=== PATIENT | female | born 1955 | race Two or more races ===

== ENCOUNTER 2020-03-08 19:18 | Inpatient (IN) | payer MEDICARE, OTHER ==
[~2020-03-08] VITALS: Ht 162.6 cm; Wt 49.9 kg
[2020-03-08 21:30] VITALS: BP 123/67
--- NOTE | 2020-03-08 21:40 | NUR ---
GPS RN NOTE PATIENT'S BLOOD SUGAR IS 62 MG/DL, 2 ORANGE JUICE GIVEN & TOLERATED WELL. WILL REPEAT BLOOD SUGAR CHECK. Addendum: 03/08/20 at 2313 by FAUZIA CORTES RN WAS MADE AWARE.
[2020-03-08 22:00] VITALS: BP 123/67
--- NOTE | 2020-03-08 22:15 | NUR ---
GPS RN NOTE ATTEMPTED TO CALL PATIENT'S SON EDU AT [phone], NO ANSWER & UNABLE TO LEAVE A MESSAGE DUE TO VOICEMAIL NOT BEEN SET UP TO RECEIVE MESSAGES, PER AUTOMATED SYSTEM.
[2020-03-08] MEDS ORDERED: MAGNESIUM HYDROXIDE 30 ML UDC PO PRN (22:30)
[2020-03-08] MEDS ORDERED: BLOOD SUGAR DIAGNOSTIC 1 EACH STRIP IN ONE (22:30)
[2020-03-08] MEDS ORDERED: MAG HYDROX/AL HYDROX/SIMETH 30 ML UDC PO PRN (22:30)
--- NOTE | 2020-03-08 22:30 | NUR ---
GPS RN NOTE: REFUSED TO GIVE MONEY TO PUT IN SAFE PATIENT HAD SINGLE 5 DOLLARS & SOME CHANGE UPON ADMISSION, PATIENT SNATCHED SINGLE 5 DOLLAR BILLS FROM NURSE WHILE COUNTING IN FRONT OF THE PATIENT & REFUSED TO GIVE IT BACK TO PUT IT IN THE SAFE. CHANGE WAS SENT TO OFFICE SAFE BUT PATIENT HAS SINGLE 5 DOLLAR BILLS WITH HER.
[2020-03-08] MEDS ORDERED: BENA5TAB5 PO (22:43)
[2020-03-08] MEDS ORDERED: BLOO-538 HHN (22:44)
--- NOTE | 2020-03-08 22:45 | NUR ---
GPS RN NOTE: REFUSED MRSA SWAB PATIENT REFUSED MRSA SWAB AT THIS TIME, GOT VERY AGITATED & AGGRESSIVE TOWARDS THE NURSE. WILL TRY TO COLLECT AGAIN LATER WHEN PATIENT IS CALM.
[2020-03-08] MEDS ORDERED: ANAS1TAB50 PO (22:46)
[2020-03-08] MEDS ORDERED: SIMV10TA98 PO (22:46)
[2020-03-08] MEDS ORDERED: BRIM5DRO5 RIGHTEYE (22:47)
[2020-03-08] MEDS ORDERED: DORZ10DR10 RIGHTEYE (22:48)
[2020-03-08] MEDS ORDERED: GLYB2.5T4 PO (22:49)
--- NOTE | 2020-03-08 22:50 | NUR ---
GPS RN-NOTE: ADMISSION ADMITTED A 64 YR OLD FEMALE, FROM [facility] TO GPS UNIT. PER 5150 HOLD, PATIENT CONTINUES TO LEAVE RESIDENCE & DOES NOT KNOW WHERE SHE IS. SHE SHEDS HER CLOTHES & WILL BE FOUND NAKED RUNNING THROUGH TRAFFIC. SHE TOLD HER FAMILY SHE WANTS TO "CHOP THEM UP." SHE WILL WALK INTO UNLOCKED RESIDENCES. UPON FACE TO FACE ASSESSMENT, AT GPS UNIT, PATIENT IS A & O X 1, VERY CONFUSED, FORGETFUL, AGGRESSIVE, YELLING, AGITATED. ANXIOUS/RESTLESS, LOUD, HYPERVERBAL, POOR HYGIENE, UNKEMPT, BLUNTED AFFECT, DISHEVELED, DISORGANIZED, PARANOID. NON REDIRECTABLE AT TIMES. UNCOOPERATIVE, UNABLE TO ANSWER MOST OF THE QUESTIONS DUE TO CONFUSION DURING INTERVIEW. CONTINENT. AMBULATORY WITH STAND BY ASSIST ONLY, UNSTEADY GAIT, HIGH FALL RISK. PT. REFUSED COMPLETE SKIN ASSESSMENT, VISIBLE SCRATCH TO LEFT LATERAL CHEST & LEFT BREAST MASTECTOMY SITE WERE NOT PICTURED DUE TO PT'S UNCOOPERATIVE BEHAVIOR. MED RECON DONE BY DR. LOBO. MRSA & COVID 19 NEGATIVE AT [facility]. PT'S RIGHTS HANDBOOK AND A GUIDE TO PRESCRIPTION MEDICATIONS GIVEN. IN NO APPARENT DISTRESS. BELONGINGS WERE INVENTORIED AND CHECKED FOR CONTRABAND. PT. IS UNDER CARE OF PSYCHIATRIC DR. HERNANDEZ AND THE MEDICAL CARE OF DR. LOBO. BED LOCKED AND PLACED IN LOWEST POSITION TO MAINTAIN SAFETY. BED ALARM ON. FALL PRECAUTIONS IMPLEMENTED. WILL CONTINUE TO MONITOR Q15 MINS. FOR SAFETY AND BEHAVIOR.
[2020-03-08] MEDS ORDERED: RISP1TAB27 PO (22:51)
[2020-03-08] MEDS ORDERED: MEMA5TAB42 PO (22:51)
--- NOTE | 2020-03-08 23:13 | NUR ---
GPS RN NOTE: RECHECKED BLOOD SUGAR RECHECKED BLOOD SUGAR & IT IS 106 MG/DL. MADE AWARE.
--- NOTE | 2020-03-09 00:20 | NUR ---
GPS RN NOTE PATIENT IS SLEEPING COMFORTABLY IN BED. BED ALARM ON. BED IN LOW LOCKED POSITION.
[2020-03-09] MEDS ORDERED: DEXTROSE 50%-WATER 50 ML DISP.SYRIN IV PRN (01:00)
--- NOTE | 2020-03-09 05:54 | NUR ---
GPS RN NOTE: REFUSED MRSA SWAB PATIENT REFUSED MRSA SWAB AGAIN AT THIS TIME, GOT AGITATED & AGGRESSIVE. WILL ENDORSE TO AM RN.
[2020-03-09 07:02] LABS: BASOPHILS % (AUTO) 0.4 % (0.0-2.0); EOSINOPHILS % (AUTO) 1.6 % (0.0-6.0); HEMATOCRIT 40 % (33-45); LYMPHOCYTES # (AUTO) 1.3 /CMM (0.8-4.8); LYMPHOCYTES % (AUTO) 21.9 % (20.0-44.0); MEAN CORPUSCULAR HGB CONC 33 g/dl (31.0-36.0); MEAN CORPUSCULAR VOLUME 94 fL (82-100); MONOCYTES # (AUTO) 0.6 /CMM (0.1-1.30); MONOCYTES % (AUTO) 10.2 % (2.0-12.0); NEUTROPHILS # (AUTO) 3.8 /CMM (1.8-8.9); NEUTROPHILS % (AUTO) 65.9 % (43.0-81.0); PLATELET COUNT (AUTO) 215 /CMM (150-450); RED BLOOD CELL COUNT(AUTO) 4.24 MIL/uL (4.0-5.2); WHITE BLOOD COUNT (AUTO) 5.7 K/uL (4.3-11.0)
[2020-03-09 07:32] LABS: CREATININE 0.5 mg/dL (0.6-1.3); POTASSIUM 3.7 mmol/L (3.5-5.1)
--- NOTE | 2020-03-09 07:36 | NUR ---
GPS RN NOTE CALLED PT'S SON EDU & NOTIFIED ABOUT HIS MOM'S ADMISSION AT GPS UNIT IN ROOM 212-2.
[2020-03-09 08:00] VITALS: BP 107/71
[2020-03-09] MEDS: BENAZEPRIL HCL 5 MG TABLET PO SCH (09:00)
[2020-03-09] MEDS: glyBURIDE 5 MG TABLET PO SCH (09:37)
[2020-03-09] MEDS: BLOOD SUGAR DIAGNOSTIC 1 EACH STRIP IN SCH ×4 (09:39→21:06)
[2020-03-09] MEDS: ANASTROZOLE 1 MG TABLET PO SCH (09:41)
[2020-03-09] MEDS: BRIMONIDINE TARTRATE OPHT SOLN 5 ML BOTTLE RIGHTEYE SCH ×2 (09:42→17:35)
[2020-03-09] MEDS: DORZOLAMIDE OPTH 2% 10 ML BOTTLE RIGHTEYE SCH ×2 (09:42→17:35)
[2020-03-09] MEDS: clonazePAM 0.5 MG TABLET PO PRN (12:30)
[2020-03-09] MEDS: risperiDONE 1 MG TABLET PO SCH ×2 (15:15→18:14)
[2020-03-09 16:00] VITALS: BP 138/79
[2020-03-09] MEDS ORDERED: LORAZEPAM INJ 2 MG/ML VIAL IM STA (16:18)
[2020-03-09] MEDS ORDERED: HALOPERIDOL LACTATE INJ 5 MG/ML VIAL IM STA (16:18)
[2020-03-09] MEDS ORDERED: diphenhydrAMINE HCL 50 MG/ML VIAL IM STA (16:18)
[2020-03-09] MEDS: SIMVASTATIN 10 MG TABLET PO SCH (18:14)
[2020-03-09 19:53] VITALS: BP 131/86
[2020-03-09] MEDS: TEMAZEPAM 7.5 MG CAPSULE PO PRN (22:43)
--- NOTE | 2020-03-09 22:44 | NUR ---
GPS RN NOTES: INSOMNIA UPON DOING ROUNDS PT AWAKE AND BANGING ON MADIHA CHAIR. ENCOURAGE PT TO EXPRESS THOUGHTS AND FEELINGS, PT SPEAKING IN TAGALOG AND TURKISH.PT STATED SHE DOESN'T LIKE WHERE SHE IS AT AND WILL NOT SLEEP. OFFERED RESTORIL PRN ORDERED. PT AGREED AND TOLERATED MEDICATION WELL. CONTINUE TO MONITOR.
[2020-03-10] MEDS: BLOOD SUGAR DIAGNOSTIC 1 EACH STRIP IN SCH ×5 (07:30→21:03)
[2020-03-10 08:00] VITALS: BP 120/72
[2020-03-10] MEDS: risperiDONE 1 MG TABLET PO SCH ×2 (08:07→17:47)
[2020-03-10] MEDS: BENAZEPRIL HCL 5 MG TABLET PO SCH (08:07)
[2020-03-10] MEDS: glyBURIDE 5 MG TABLET PO SCH (08:08)
[2020-03-10] MEDS: DORZOLAMIDE OPTH 2% 10 ML BOTTLE RIGHTEYE SCH ×2 (08:10→17:48)
[2020-03-10] MEDS: BRIMONIDINE TARTRATE OPHT SOLN 5 ML BOTTLE RIGHTEYE SCH ×2 (08:10→17:48)
[2020-03-10] MEDS: ANASTROZOLE 1 MG TABLET PO SCH (08:10)
--- NOTE | 2020-03-10 11:08 | NUR ---
RN NOTE LATE ENTRY FOR 03/09/20 16:19 :PATIENT AGITATED ASSAULTIVE YELLING AND PUSHING DOORS ,NOT FOLLOWING DIRECTIONS ,REDIRECT TO LOWER STIMULI ,OFFER 1:1 INTERACTIONS BUT STILL NOT SUCCESSFUL CALLED WITH NEW ORDER ATIVAN 1MG IM BENADRYL 2.5 MG IM HALDOL 2.5 MG IM GIVEN AT 16:19 PATIENT REFUSED VS X3 AT 17:19 BP P 78 R 18 T 98.7 ,BP 118/70 ,NO S/S OF DISTRESS NOTED PATIENT ,WILL CONTINUE TO MONITOR .
--- NOTE | 2020-03-10 13:04 | NUR ---
FAMILY CONTACT: SW received a call from pts son Jack ([phone]) who provided SW with collateral information, treatment and discharge planning. Per son, he states that pt currently lives at home with him and that he is her [facility] caregiver, however, he is unable to continue caring for her as he works claim adjuster and is in the process of moving. Son states that pt was diagnosed with Dementia a few years ago and states that ever since her a year ago pt declined cognitively and recently became psychotic and unmanageable. Son states that pt does not have mental health history but states that pt has always been aggressive. Son wishes for pt to be discharged to a SNF and requested she be placed in a locked SNF.
[2020-03-10] MEDS: clonazePAM 0.5 MG TABLET PO PRN ×2 (13:06→23:48)
--- NOTE | 2020-03-10 13:07 | NUR ---
RN NOTE: PATIENT IRRITABLE AND ANXIOUS MEDICATED WITH KLONOPIN 0.5MG PO X1 WILL CONTINUE TO MONITOR .
--- NOTE | 2020-03-10 14:01 | NUR ---
INITIAL DISCHARGE PLAN: Per pts son Jack ([phone]) he wishes for pt to be discharged to a SNF. SW will help form a safe and proper discharge in collaboration with MD.
[2020-03-10 16:00] VITALS: BP 111/72
[2020-03-10] MEDS: SIMVASTATIN 10 MG TABLET PO SCH (18:13)
[2020-03-10 19:47] VITALS: BP 110/64
[2020-03-10] MEDS: TEMAZEPAM 7.5 MG CAPSULE PO PRN (21:22)
--- NOTE | 2020-03-10 21:23 | NUR ---
GPS RN NOTES: INSOMNIA UPON DOING ROUNDS PT AWAKE AND BANGING ON MADIHA CHAIR. ENCOURAGE PT TO EXPRESS THOUGHTS AND FEELINGS, PT SPEAKING IN TAGALOG AND GEORGIAN.PT STATED SHE WANTS TO SLEEP AND TKAE MEDICATION OFFERED RESTORIL PRN ORDERED. PT AGREED AND TOLERATED MEDICATION WELL. CONTINUE TO MONITOR.
[2020-03-10 23:43] VITALS: BP 114/69
--- NOTE | 2020-03-10 23:53 | NUR ---
GPS RN NOTES: ANXIOUS UPON DOING ROUNDS, PT YELLING AND BANGING ON MADIHA CHAIR. PT STATED, "BROTHER! ARE WE DONE?" PT IS ANXIOUS AND EASILY AGITATED. VITALS CHECKED WNL. OFFERED KLONOPIN PRN ORDERED. PT AGREED AND TOLERATED MEDICATION WELL. CONTINUE TO MONITOR.
[2020-03-11 08:00] VITALS: BP 123/74
[2020-03-11] MEDS: risperiDONE 1 MG TABLET PO SCH ×2 (08:08→17:37)
[2020-03-11] MEDS: BENAZEPRIL HCL 5 MG TABLET PO SCH (08:09)
[2020-03-11] MEDS: glyBURIDE 5 MG TABLET PO SCH (08:09)
[2020-03-11] MEDS: BRIMONIDINE TARTRATE OPHT SOLN 5 ML BOTTLE RIGHTEYE SCH ×2 (08:10→17:37)
[2020-03-11] MEDS: BLOOD SUGAR DIAGNOSTIC 1 EACH STRIP IN SCH ×4 (08:10→21:28)
[2020-03-11] MEDS: DORZOLAMIDE OPTH 2% 10 ML BOTTLE RIGHTEYE SCH ×2 (08:10→17:37)
[2020-03-11] MEDS: ANASTROZOLE 1 MG TABLET PO SCH (08:10)
--- NOTE | 2020-03-11 10:11 | NUR ---
SNF REFERRAL: SILKE faxed SNF referral to [facility] [id number] [facility] [id number] for review.
[2020-03-11] MEDS: clonazePAM 0.5 MG TABLET PO PRN (11:02)
--- NOTE | 2020-03-11 11:02 | NUR ---
RN NOTE: PATIENT IRRITABLE AND ANXIOUS MEDICATED WITH KLONOPIN 0.5MG PO X1 WILL CONTINUE TO MONITOR .
--- NOTE | 2020-03-11 14:25 | NUR ---
GROUP THERAPY: Pt was present but unable to participate due to cognitive impairment. Pt is only alert to self and unable to engage in conversation. Pt was asleep in a shawn-chair and not easily roused by verbal cues.
--- NOTE | 2020-03-11 14:42 | NUR ---
SNF REFERRAL: SW received a call from [facility] medical staff credentialing coordinator at [facility] [id number] [facility] [id number] stating pt has been accepted to the facility.
[2020-03-11 16:00] VITALS: BP 123/69
[2020-03-11] MEDS: SIMVASTATIN 10 MG TABLET PO SCH (17:37)
[2020-03-11 20:00] VITALS: BP 104/66
[2020-03-12 08:00] VITALS: BP 114/70
[2020-03-12] MEDS: BLOOD SUGAR DIAGNOSTIC 1 EACH STRIP IN SCH ×4 (08:43→22:05)
[2020-03-12] MEDS: glyBURIDE 5 MG TABLET PO SCH (09:00)
[2020-03-12] MEDS: risperiDONE 1 MG TABLET PO SCH ×2 (09:00→16:19)
[2020-03-12] MEDS: BENAZEPRIL HCL 5 MG TABLET PO SCH (09:01)
[2020-03-12] MEDS: DORZOLAMIDE OPTH 2% 10 ML BOTTLE RIGHTEYE SCH ×2 (09:02→16:56)
[2020-03-12] MEDS: BRIMONIDINE TARTRATE OPHT SOLN 5 ML BOTTLE RIGHTEYE SCH ×2 (09:02→16:57)
[2020-03-12] MEDS: ANASTROZOLE 1 MG TABLET PO SCH (09:02)
[2020-03-12 16:00] VITALS: BP 103/64
--- NOTE | 2020-03-12 17:10 | NUR ---
GPS/RN-NOTES PATIENT BS WAS 48 MG/DL BEFORE DINNER, GAVE ORANGE JUICE AND WILL RECHECK BS AGAIN. PATIENT DENIES ANY S/SX OF HYPOGLYCEMIA. WILL CONT. MONITORING.
[2020-03-12] MEDS: SIMVASTATIN 10 MG TABLET PO SCH (17:15)
--- NOTE | 2020-03-12 17:40 | NUR ---
GPS/RN-NOTES BS WAS 93MG/DL. PATIENT WALKING IN THE HALLWAY.NO ACUTE DISTRESS NOTED.
[2020-03-12 20:05] VITALS: BP 114/68
--- NOTE | 2020-03-13 06:30 | NUR ---
GPS RN NOTES: PT. RESTING IN HER ROOM, CALM NOTED AT THIS TIME . NO S/S OF DISTRESS NOTED ,NO CHANGE OF CONDITION NOTED , ALL CARE NEEDS MET ANTICIPATED. MED COMPLIANT ,NO BEHAVIOR PROBLEMS NOTED IN SHIFT,WILL CONTINUE TO MONITOR FOR SAFETY BEHAVIOR, AND ENDORSE TO AM SHIFT FOR CONTINUITY OF CARE.
[2020-03-13] MEDS: BLOOD SUGAR DIAGNOSTIC 1 EACH STRIP IN SCH ×4 (07:46→21:25)
[2020-03-13 08:00] VITALS: BP 99/62
[2020-03-13] MEDS: risperiDONE 1 MG TABLET PO SCH ×2 (08:34→16:35)
[2020-03-13] MEDS: BENAZEPRIL HCL 5 MG TABLET PO SCH (08:34)
[2020-03-13] MEDS: ANASTROZOLE 1 MG TABLET PO SCH (08:34)
[2020-03-13] MEDS: DORZOLAMIDE OPTH 2% 10 ML BOTTLE RIGHTEYE SCH ×2 (08:35→16:36)
[2020-03-13] MEDS: BRIMONIDINE TARTRATE OPHT SOLN 5 ML BOTTLE RIGHTEYE SCH ×2 (08:35→16:36)
[2020-03-13] MEDS: glyBURIDE 5 MG TABLET PO SCH (08:35)
[2020-03-13] MEDS: clonazePAM 0.5 MG TABLET PO PRN ×2 (11:26→21:37)
--- NOTE | 2020-03-13 12:04 | NUR ---
GPS/RN PT REFUSED ACCUCHECK FOR 1200. MEDICATED WITH CLONOPIN 0.5MG PO EARLIER FOR AGITATION. PT EATING WELL NO S/S OF HYPO/HYPERGLYCEMIA NOTED.
[2020-03-13 16:00] VITALS: BP 107/76
[2020-03-13] MEDS: DIVALPROEX SODIUM 125 MG CAP.SPRINK PO SCH ×2 (16:33→18:22)
[2020-03-13] MEDS: SIMVASTATIN 10 MG TABLET PO SCH (18:22)
[2020-03-13 19:47] VITALS: BP 114/64
--- NOTE | 2020-03-13 21:42 | NUR ---
GPS RN NOTE: ANXIETY PT. APPEARS TO BE ANXIOUS. YELLING AND SCREAMING IN DAY ROOM. ADMINISTERED KLONOPIN 0.5 MG PO PRN ORDERED. WILL CONTINUE TO MONITOR FOR SAFETY AND BEHAVIOR.
[2020-03-14] MEDS: TEMAZEPAM 7.5 MG CAPSULE PO PRN (01:02)
--- NOTE | 2020-03-14 01:07 | NUR ---
GPS RN NOTE:INSOMNIA PT. UNABLE TO SLEEP. ADMINISTERED RESTORIL 7.5 MG PO PRN ORDERED. WILL CONTINUE TO MONITOR
[2020-03-14] MEDS: BLOOD SUGAR DIAGNOSTIC 1 EACH STRIP IN SCH ×3 (07:41→22:21)
[2020-03-14 08:00] VITALS: BP 113/70
[2020-03-14] MEDS: risperiDONE 1 MG TABLET PO SCH ×2 (08:24→16:40)
[2020-03-14] MEDS: ANASTROZOLE 1 MG TABLET PO SCH (08:24)
[2020-03-14] MEDS: DIVALPROEX SODIUM 125 MG CAP.SPRINK PO SCH ×3 (08:24→16:41)
[2020-03-14] MEDS: DORZOLAMIDE OPTH 2% 10 ML BOTTLE RIGHTEYE SCH ×2 (08:25→16:38)
[2020-03-14] MEDS: BRIMONIDINE TARTRATE OPHT SOLN 5 ML BOTTLE RIGHTEYE SCH ×2 (08:25→16:38)
[2020-03-14] MEDS: BENAZEPRIL HCL 5 MG TABLET PO SCH (08:25)
[2020-03-14] MEDS: clonazePAM 0.5 MG TABLET PO PRN (09:41)
[2020-03-14 16:00] VITALS: BP 101/59
[2020-03-14] MEDS: SIMVASTATIN 10 MG TABLET PO SCH (16:41)
[2020-03-15 08:00] VITALS: BP 111/66
[2020-03-15] MEDS: BLOOD SUGAR DIAGNOSTIC 1 EACH STRIP IN SCH ×4 (08:28→21:54)
[2020-03-15] MEDS: BRIMONIDINE TARTRATE OPHT SOLN 5 ML BOTTLE RIGHTEYE SCH ×2 (08:56→16:17)
[2020-03-15] MEDS: DORZOLAMIDE OPTH 2% 10 ML BOTTLE RIGHTEYE SCH ×2 (08:56→16:17)
[2020-03-15] MEDS: ANASTROZOLE 1 MG TABLET PO SCH (08:57)
[2020-03-15] MEDS: DIVALPROEX SODIUM 125 MG CAP.SPRINK PO SCH ×3 (08:58→16:16)
[2020-03-15] MEDS: risperiDONE 1 MG TABLET PO SCH ×2 (08:58→16:16)
[2020-03-15] MEDS: BENAZEPRIL HCL 5 MG TABLET PO SCH (08:59)
[2020-03-15] MEDS: clonazePAM 0.5 MG TABLET PO PRN ×3 (09:19→17:49)
--- NOTE | 2020-03-15 09:19 | NUR ---
rn notes administered Klonopin 0.5 mg po prn for anxiety, yelling, v/s taken bp- 111/66, p-94, continued monitoring.
--- NOTE | 2020-03-15 13:22 | NUR ---
josefa parker administered Klonopin 0.5 mg po prn for paranoia, yelling, screaming, v/s take bp 118/71, p-101, continued monitoring.
[2020-03-15 16:00] VITALS: BP 118/71
[2020-03-15] MEDS: SIMVASTATIN 10 MG TABLET PO SCH (17:16)
--- NOTE | 2020-03-15 17:49 | NUR ---
rn notes administered Klonopin 0.5 mg po prn for paranoia, yelling, banging table, v/s taken bp 119/71, p-100.
[2020-03-15 20:09] VITALS: BP 97/65
[2020-03-15] MEDS: TEMAZEPAM 7.5 MG CAPSULE PO PRN (21:41)
--- NOTE | 2020-03-15 21:55 | NUR ---
GPS RN NOTE: INSOMNIA PT HAVING DIFFICULTY SLEEPING, ASKED IF SHE WOULD LIKE TO TAKE RESTORIL PT AGREED, ADMIN RESTORIL PRN, WILL REASSESS AND CONTINUE TO MONITOR Q15MIN FOR SAFETY AND BEHAVIOR.
[2020-03-16] MEDS: clonazePAM 0.5 MG TABLET PO PRN (01:01)
--- NOTE | 2020-03-16 01:12 | NUR ---
GPS RN NOTE: ANXIETY PT WAS RESTLESS, ANXIOUS, LABILE, YELLING, OFFERED PRN ALONAONOVIJAYA PT AGREED, ADMIN MUSA PRN @ 0102, WILL REASSESS AND CONTINUE TO MONITOR Q15MIN FOR SAFETY AND BEHAVIOR,
[2020-03-16 08:00] VITALS: BP 139/95
--- NOTE | 2020-03-16 08:00 | NUR ---
GPS RN NOTES RECEIVED PT IN BED RESTING IN HER ROOM, CALM NOTED AT THIS TIME . NO S/S OF DISTRESS NOTED ,NO CHANGE OF CONDITION NOTED , NO C/O PAIN OR DISCOMOFORT. NO BEHAVIORAL PROBLEMS NOTED AT THIS TIME. PT IS AMBULATORY. ,WILL CONTINUE TO MONITOR FOR SAFETY BEHAVIOR, AND
[2020-03-16] MEDS: BLOOD SUGAR DIAGNOSTIC 1 EACH STRIP IN SCH ×4 (09:06→22:20)
[2020-03-16] MEDS: BENAZEPRIL HCL 5 MG TABLET PO SCH (09:07)
[2020-03-16] MEDS: DIVALPROEX SODIUM 125 MG CAP.SPRINK PO SCH ×3 (09:07→16:41)
[2020-03-16] MEDS: risperiDONE 1 MG TABLET PO SCH ×2 (09:07→17:01)
[2020-03-16] MEDS: BRIMONIDINE TARTRATE OPHT SOLN 5 ML BOTTLE RIGHTEYE SCH ×2 (09:08→17:01)
[2020-03-16] MEDS: DORZOLAMIDE OPTH 2% 10 ML BOTTLE RIGHTEYE SCH ×2 (09:09→17:01)
[2020-03-16] MEDS: ANASTROZOLE 1 MG TABLET PO SCH (09:09)
[2020-03-16 16:00] VITALS: BP 111/66
[2020-03-16] MEDS: SIMVASTATIN 10 MG TABLET PO SCH (17:02)
[2020-03-16 19:55] VITALS: BP 98/61
[2020-03-17] MEDS: BLOOD SUGAR DIAGNOSTIC 1 EACH STRIP IN SCH ×4 (07:05→21:26)
[2020-03-17 08:00] VITALS: BP 109/59
[2020-03-17] MEDS: BENAZEPRIL HCL 5 MG TABLET PO SCH (09:00)
[2020-03-17] MEDS: risperiDONE 1 MG TABLET PO SCH ×2 (09:00→15:40)
[2020-03-17] MEDS: DIVALPROEX SODIUM 125 MG CAP.SPRINK PO SCH ×2 (10:06→16:14)
[2020-03-17] MEDS: DORZOLAMIDE OPTH 2% 10 ML BOTTLE RIGHTEYE SCH ×2 (10:07→16:14)
[2020-03-17] MEDS: BRIMONIDINE TARTRATE OPHT SOLN 5 ML BOTTLE RIGHTEYE SCH ×2 (10:07→16:14)
[2020-03-17] MEDS: ANASTROZOLE 1 MG TABLET PO SCH (12:05)
[2020-03-17] MEDS: clonazePAM 0.5 MG TABLET PO PRN ×2 (12:27→15:40)
--- NOTE | 2020-03-17 12:34 | NUR ---
terri held in am due to low bp.ativan given now. Addendum: 03/17/20 at 1236 by TASHI YAO RN correction klonopin given not ativan.
[2020-03-17] MEDS: ACETAMINOPHEN 325 MG TABLET PO PRN (14:28)
--- NOTE | 2020-03-17 14:30 | NUR ---
medicated for appearance of discomfort with tylenol.
--- NOTE | 2020-03-17 15:48 | NUR ---
GIVEN ATIVAN AND RISPERDAL FOR SEVERE AGITATION.
[2020-03-17 16:00] VITALS: BP 134/85
[2020-03-17] MEDS: SIMVASTATIN 10 MG TABLET PO SCH (16:15)
--- NOTE | 2020-03-17 18:00 | NUR ---
PT. UP MOST OF DAY,THEN PUT BACK TO BED POUNDING ON TABLE FREQ.
[2020-03-17 20:05] VITALS: BP 99/58
[2020-03-18] MEDS: clonazePAM 0.5 MG TABLET PO PRN ×4 (05:51→16:46)
--- NOTE | 2020-03-18 05:56 | NUR ---
GPS-RN NOTE: ANXIETY PATIENT IS ANXIOUS AND RESTLESS. ADMINISTERED KLONOPIN 0.5MG PO ORDERED. WILL CONTINUE TO MONITOR FOR PATIENT'S SAFETY.
[2020-03-18 08:00] VITALS: BP 134/79
[2020-03-18] MEDS: BLOOD SUGAR DIAGNOSTIC 1 EACH STRIP IN SCH ×4 (08:49→22:11)
[2020-03-18] MEDS: BRIMONIDINE TARTRATE OPHT SOLN 5 ML BOTTLE RIGHTEYE SCH ×2 (08:55→17:53)
[2020-03-18] MEDS: DORZOLAMIDE OPTH 2% 10 ML BOTTLE RIGHTEYE SCH ×2 (08:55→17:53)
[2020-03-18] MEDS: risperiDONE 1 MG TABLET PO SCH ×2 (08:56→17:54)
[2020-03-18] MEDS: BENAZEPRIL HCL 5 MG TABLET PO SCH (08:56)
[2020-03-18] MEDS: DIVALPROEX SODIUM 125 MG CAP.SPRINK PO SCH ×3 (08:56→17:53)
[2020-03-18] MEDS: ANASTROZOLE 1 MG TABLET PO SCH (08:57)
--- NOTE | 2020-03-18 09:32 | NUR ---
GIVEN CLONOPIN FOR AGITATION.
--- NOTE | 2020-03-18 12:40 | NUR ---
in dining rm.poundinf
--- NOTE | 2020-03-18 12:40 | NUR ---
in dining rm. pounding on table,given clonopin.
[2020-03-18] MEDS: ACETAMINOPHEN 325 MG TABLET PO PRN (12:50)
--- NOTE | 2020-03-18 12:50 | NUR ---
states head pounding-given tylenol.
--- NOTE | 2020-03-18 13:46 | NUR ---
DR. HERNANDEZ CALLING IN CHECKING ON PT.RN INFORMED HIM PT. POUNDING ON TABLE CONTINUALLY FOR HRS AND POSSIBLY NEEDS MORE MEDICATION,MD STATED HE WOULD ORDER DEPAKOTE LEVEL TOMORROW.
[2020-03-18 16:00] VITALS: BP 125/69
--- NOTE | 2020-03-18 16:52 | NUR ---
GIVEN CLONOPIN,PT. IN DINING RM. POUNDING ON TABLE.
[2020-03-18] MEDS: SIMVASTATIN 10 MG TABLET PO SCH (17:53)
[2020-03-18 19:43] VITALS: BP 113/61
--- NOTE | 2020-03-18 22:34 | NUR ---
GPS RN NOTE SPOKE TO DR. HUTCHINS REGARDING PTS BLOOD SUGAR BEING 224 AND ELEVATED THROUGHOUT THE DAY. DR. HUTCHINS STATED "PASS IT ON TO MORNING SHIFT, THAT IS NOTHING TO BE CONCERNED ABOUT RIGHT NOW THE DAY SHIFT NEEDS TO ADDRESS THIS ISSUE, NO NEW ORDERS AT THIS TIME". WILL CONTINUE TO MONITOR Q15MIN FOR SAFETY AND BEHAVIOR AND PASS IT ON IN THE AM.
[2020-03-19 08:00] VITALS: BP 100/60
[2020-03-19] MEDS: BENAZEPRIL HCL 5 MG TABLET PO SCH (09:00)
[2020-03-19] MEDS: BLOOD SUGAR DIAGNOSTIC 1 EACH STRIP IN SCH ×4 (09:17→21:20)
[2020-03-19] MEDS: DIVALPROEX SODIUM 125 MG CAP.SPRINK PO SCH ×3 (09:18→16:26)
[2020-03-19] MEDS: ANASTROZOLE 1 MG TABLET PO SCH (09:18)
[2020-03-19] MEDS: BRIMONIDINE TARTRATE OPHT SOLN 5 ML BOTTLE RIGHTEYE SCH ×2 (09:19→16:31)
[2020-03-19] MEDS: DORZOLAMIDE OPTH 2% 10 ML BOTTLE RIGHTEYE SCH ×2 (09:19→16:31)
[2020-03-19] MEDS: risperiDONE 1 MG TABLET PO SCH ×2 (09:21→16:31)
--- NOTE | 2020-03-19 11:15 | NUR ---
FAMILY CONTACT: SW spoke with patients son, Jack Harding ([phone]) and made aware of patient's discharge plan fo Monday to [facility]. Jack is agreeable.
--- NOTE | 2020-03-19 13:36 | NUR ---
SILKE INDIVIDUAL INTERVENTION: SW attempted to meet with patient to provide individual counseling regarding her mood. Patient appears disorganized and confused. Patient is seen with her eyes closed and not very verbally responsive. Patient appears distressed and withdrawn at this time. SW will continue to meet with patient for further individual counseling.
[2020-03-19 16:00] VITALS: BP 105/66
[2020-03-19] MEDS: SIMVASTATIN 10 MG TABLET PO SCH (17:33)
[2020-03-19 19:39] VITALS: BP 95/57
[2020-03-19] MEDS: ACETAMINOPHEN 325 MG TABLET PO PRN (21:15)
--- NOTE | 2020-03-19 21:15 | NUR ---
GPS-RN NOTE: HEADACHE PATIENT C/O HEADACHE. ON A PAIN SCALE 3/10. ADMINISTERED TYLENOL 650MG PO ORDERED. WILL CONTINUE TO REASSESS.
[2020-03-20] MEDS: BLOOD SUGAR DIAGNOSTIC 1 EACH STRIP IN SCH ×4 (07:30→21:20)
[2020-03-20 08:00] VITALS: BP 100/66
[2020-03-20] MEDS: BENAZEPRIL HCL 5 MG TABLET PO SCH (08:04)
[2020-03-20] MEDS: ANASTROZOLE 1 MG TABLET PO SCH (08:08)
[2020-03-20] MEDS: DORZOLAMIDE OPTH 2% 10 ML BOTTLE RIGHTEYE SCH ×2 (08:08→17:36)
[2020-03-20] MEDS: BRIMONIDINE TARTRATE OPHT SOLN 5 ML BOTTLE RIGHTEYE SCH ×2 (08:08→17:36)
[2020-03-20] MEDS: DIVALPROEX SODIUM 125 MG CAP.SPRINK PO SCH ×3 (08:09→17:37)
[2020-03-20] MEDS: risperiDONE 1 MG TABLET PO SCH ×2 (08:09→21:21)
[2020-03-20] MEDS: clonazePAM 0.5 MG TABLET PO PRN (09:34)
[2020-03-20 16:00] VITALS: BP 117/66
[2020-03-20] MEDS: SIMVASTATIN 10 MG TABLET PO SCH (17:38)
[2020-03-20 19:55] VITALS: BP 115/68
[2020-03-21] MEDS: BLOOD SUGAR DIAGNOSTIC 1 EACH STRIP IN SCH ×4 (07:31→21:28)
[2020-03-21] MEDS: BENAZEPRIL HCL 5 MG TABLET PO SCH (07:47)
[2020-03-21 08:00] VITALS: BP 100/59
[2020-03-21] MEDS: DIVALPROEX SODIUM 125 MG CAP.SPRINK PO SCH ×3 (08:08→17:48)
[2020-03-21] MEDS: risperiDONE 1 MG TABLET PO SCH ×2 (08:08→21:16)
[2020-03-21] MEDS: DORZOLAMIDE OPTH 2% 10 ML BOTTLE RIGHTEYE SCH ×2 (08:09→17:47)
[2020-03-21] MEDS: ANASTROZOLE 1 MG TABLET PO SCH (08:09)
[2020-03-21] MEDS: BRIMONIDINE TARTRATE OPHT SOLN 5 ML BOTTLE RIGHTEYE SCH ×2 (08:09→17:47)
[2020-03-21] MEDS: clonazePAM 0.5 MG TABLET PO PRN (12:44)
[2020-03-21 16:00] VITALS: BP 117/68
[2020-03-21] MEDS: SIMVASTATIN 10 MG TABLET PO SCH (18:02)
[2020-03-21 20:15] VITALS: BP 105/65
[2020-03-21] MEDS: TEMAZEPAM 7.5 MG CAPSULE PO PRN (23:35)
--- NOTE | 2020-03-21 23:41 | NUR ---
GPS RN NOTE: INSOMNIA PT. UNABLE TO SLEEP. ADMINISTERED RESTORIL 7.5 MG PO PRN ORDERED. WILL CONTINUE TO MONITOR.
[2020-03-22] MEDS: BLOOD SUGAR DIAGNOSTIC 1 EACH STRIP IN SCH ×4 (07:36→21:33)
[2020-03-22 08:00] VITALS: BP 100/68
[2020-03-22] MEDS: risperiDONE 1 MG TABLET PO SCH ×2 (08:20→21:23)
[2020-03-22] MEDS: DIVALPROEX SODIUM 125 MG CAP.SPRINK PO SCH ×3 (08:20→16:28)
[2020-03-22] MEDS: BENAZEPRIL HCL 5 MG TABLET PO SCH (08:20)
[2020-03-22] MEDS: DORZOLAMIDE OPTH 2% 10 ML BOTTLE RIGHTEYE SCH ×2 (08:23→16:36)
[2020-03-22] MEDS: BRIMONIDINE TARTRATE OPHT SOLN 5 ML BOTTLE RIGHTEYE SCH ×2 (08:23→16:36)
[2020-03-22] MEDS: ANASTROZOLE 1 MG TABLET PO SCH (08:23)
[2020-03-22] MEDS: clonazePAM 0.5 MG TABLET PO PRN (13:50)
--- NOTE | 2020-03-22 13:50 | NUR ---
GPS-RN NOTE: ANXIETY PATIENT IS ANXIOUS AND RESTLESS. ADMINISTERED KLONOPIN 0.5MG PO ORDERED. WILL CONTINUE TO MONITOR FOR PATIENT'S SAFETY.
[2020-03-22 16:00] VITALS: BP 144/77
[2020-03-22] MEDS: SIMVASTATIN 10 MG TABLET PO SCH (18:18)
[2020-03-22 19:59] VITALS: BP 96/59
[2020-03-23] MEDS: BLOOD SUGAR DIAGNOSTIC 1 EACH STRIP IN SCH (07:36)
[2020-03-23 08:00] VITALS: BP 108/67
[2020-03-23] MEDS: DIVALPROEX SODIUM 125 MG CAP.SPRINK PO SCH (08:29)
[2020-03-23] MEDS: risperiDONE 1 MG TABLET PO SCH (08:30)
[2020-03-23] MEDS: BRIMONIDINE TARTRATE OPHT SOLN 5 ML BOTTLE RIGHTEYE SCH (08:32)
[2020-03-23] MEDS: DORZOLAMIDE OPTH 2% 10 ML BOTTLE RIGHTEYE SCH (08:32)
[2020-03-23 08:33] VITALS: BP 108/67
[2020-03-23] MEDS: ANASTROZOLE 1 MG TABLET PO SCH (08:33)
[2020-03-23] MEDS: BENAZEPRIL HCL 5 MG TABLET PO SCH (08:33)
--- NOTE | 2020-03-23 08:48 | NUR ---
SW DISCHARGE NOTE: Patient [facility] [address] [place] [address] ([phone]) via ambulance transportation at 11:30AM. Spoke with [facility] corporate administrative assistant at the facility who states they are ready to accept the patient today. Patient will follow-up at the facility with Dr. Rhodes Multi Needle Machine Operator and Dr. Gomes Psychiatrist. Patient is alert and oriented times 2-3, denies suicidal or homicidal ideation, and is aware and agreeable with discharge plans. Patient presents with appropriate mood and congruent affect. Patient is unable to plan for self-care at this time, however, is willing to accept care provided at the facility. Patients son, Jack Harding ([phone]) is aware and agreeable with discharge plans. The multidisciplinary exit care form was done, printed, signed, and given to the patient.
--- NOTE | 2020-03-23 09:00 | NUR ---
RN NOTE- PACING HALLS INTRUSIVE AT TIMES FLAT AFFECT, MED COMPLIANT DIRECTABLE TOO CONFUSED TO ESTABLISH SI HI , ANSWERS QUERY MONOSYLLABIC RESPONSES
--- NOTE | 2020-03-23 10:11 | NUR ---
RN-CO: DR PEGUERO, COVERING FOR DR HERNANDEZ , DISCONTINUE HOLD AND DISCHARGE PATIENT TO SNF. PAGED KOSTAS COOK GOVERNMENT RELATIONS MANAGER TO RECONCILE MEDICATIONS.
--- NOTE | 2020-03-23 11:55 | NUR ---
RN NOTE- DISCHARGE/ PT DC AT THIS TIME TO [facility] VIA GURNEY AND AMBULANCE , PT VS STABLE, ALERT ORIENTED TO SELF ONLY, CONFUSED COOPERATIVE CALM DIRECTABLE. PT DENIES SI ON QUERY BUT ORIENTATION MAKES THIS UNRELIABLE. PT HASN'T DISPLAYED ANY BEHAVIORAL ISSUES. MED COMPLIANT, PO INTAKE GOOD. VALUABLES RETURNED, REPORT CALLED TO FACILITY AND AFTERCARE GIVEN AND REVIEWED. ID [id number]. ESCORTED OFF UNIT BY THIS RN AND AMBULANCE STAFF. Addendum: 03/23/20 at 1744 by ANIL KATZ RN RN NOTE/ADDENDUM- THIS RN FORGOT TO INCLUDE FLU SHOT INFORMATION. PT TOO CONFUSED TO ANSWER QUERY CONCERNING FLU SHOT .
== END 2020-03-23 11:55 | DRG 885 ==
LOC: GPS 21:14
PROVIDERS: ADMIT Psychiatry & Neurology Psychiatry; ATTEND Internal Medicine
DX: F29 Unspecified psychosis not due to a substance or known physiological condition (principal); F01.50 Vascular dementia, unspecified severity, without behavioral disturbance, psychotic disturbance, mood disturbance, and anxiety; F23 Brief psychotic disorder; F41.9 Anxiety disorder, unspecified; E78.5 Hyperlipidemia, unspecified; F32.9 Major depressive disorder, single episode, unspecified; I10 Essential (primary) hypertension; Z85.3 Personal history of malignant neoplasm of breast; Z73.6 Limitation of activities due to disability; M62.81 Muscle weakness (generalized); G30.9 Alzheimer's disease, unspecified; F02.80 Dementia in other diseases classified elsewhere, unspecified severity, without behavioral disturbance, psychotic disturbance, mood disturbance, and anxiety; E11.649 Type 2 diabetes mellitus with hypoglycemia without coma; Z79.84 Long term (current) use of oral hypoglycemic drugs
CPT/HCPCS: 36415; 80048-TC; 80061-TC; 80164-TC; 82962-TC; 85025-TC; 97112-TC; 97116-TC; 97530-TC; J1200; J1630; J2060

== ENCOUNTER 2021-10-21 08:48 | Inpatient (IN) | payer MEDICARE, OTHER ==
[~2021-10-21] VITALS: Ht 160 cm; Wt 34.0 kg
[~2021-10-21 08:48] MED LIST: ANAS1TAB50 PO; BENA5TAB5 PO; BLOO-538 HHN; BRIM5DRO5 RIGHTEYE; DORZ10DR10 RIGHTEYE; GLYB2.5T4 PO; MEMA5TAB42 PO; SIMV10TA98 PO
--- NOTE | 2021-10-21 08:48 | NUR ---
PT BIBRA 86 FROM [facility] C/O SOB AND LOW O2 SAT 78% ON RA. PT IS AAOX0, NOTED MILD RESPIRATORY DISTRESS, ON O2 AT 15 LPM VIA RB, HOOKED TO V/S MONITOR, KEPT RESTED AND COMFORTABLE. WILL CONTINUE TO MONITOR.
[2021-10-21] MEDS ORDERED: ACETAMINOPHEN 650 MG/SUPP.RECT RC ONE ×2 (08:57→09:00)
--- NOTE | 2021-10-21 08:58 | NUR ---
SEEN AND EXAMINED BY .
--- NOTE | 2021-10-21 08:59 | NUR ---
RT AT BEDSIDE.
[2021-10-21] MEDS ORDERED: IV NS 0.9% 1,000 ML BAG IV ONE (09:00)
--- NOTE | 2021-10-21 09:00 | NUR ---
COVID SWAB AND FLU SWAB DONE AND SENT TO LAB
--- NOTE | 2021-10-21 09:05 | NUR ---
MOVE SHEET SUBMITTED.
[2021-10-21] MEDS ORDERED: CRAN3875 PO (09:20)
[2021-10-21] MEDS ORDERED: NETA2.5D EACHEYE (09:20)
[2021-10-21] MEDS ORDERED: LATA2.5D15 EACHEYE (09:20)
[2021-10-21] MEDS ORDERED: RISP2TAB5 PO (09:20)
[2021-10-21] MEDS ORDERED: TIMO5DRO31 EACHEYE (09:20)
[2021-10-21] MEDS ORDERED: GABA100C PO (09:20)
[2021-10-21] MEDS ORDERED: DIVA500T2 PO (09:20)
[2021-10-21] MEDS ORDERED: RISP1TAB7 PO (09:20)
--- NOTE | 2021-10-21 09:21 | NUR ---
IV LINE ESTABLISHED BLOOD DRAWN AND SENT TO LAB.
--- NOTE | 2021-10-21 09:30 | NUR ---
URINE SAMPLE SENT TO LAB
[2021-10-21 09:33] LABS: BASOPHILS % (AUTO) 0.4 % (0.0-2.0); HEMATOCRIT 44 % (33-45); HEMOGLOBIN 14.3 g/dL (11.5-14.8); LYMPHOCYTES # (AUTO) 0.5 K/uL (0.8-4.8); LYMPHOCYTES % (AUTO) 11.6 % (20.0-44.0); MEAN CORPUSCULAR HGB CONC 32 g/dl (31.0-36.0); MEAN CORPUSCULAR VOLUME 95 fL (82-100); MONOCYTES # (AUTO) 0.5 K/uL (0.1-1.30); MONOCYTES % (AUTO) 11.4 % (2.0-12.0); NEUTROPHILS # (AUTO) 3.2 K/uL (1.8-8.9); NEUTROPHILS % (AUTO) 76.6 % (43.0-81.0); PLATELET COUNT (AUTO) 117 K/uL (150-450); RED BLOOD CELL COUNT(AUTO) 4.67 MIL/uL (4.0-5.2); WHITE BLOOD COUNT (AUTO) 4.2 K/uL (4.3-11.0)
[2021-10-21 09:47] LABS: ALBUMIN 2.4 g/dL (3.4-5.0); ALKALINE PHOSPHATASE 58 U/L (46-116); ASPARTATE AMINOTRANSFERASE 11 U/L (15-37); BILIRUBIN,DIRECT 0.2 mg/dL (0.0-0.2); BILIRUBIN,TOTAL 0.4 mg/dL (0.2-1.0); CARBON DIOXIDE 35 mmol/L (21-32); GLUCOSE 138 mg/dL (74-106); POTASSIUM 3.8 mmol/L (3.5-5.1); TOTAL PROTEIN, SERUM 6.5 g/dL (6.4-8.2); UREA NITROGEN, BLOOD 52 mg/dL (7-18)
[2021-10-21 09:56] LABS: ALANINE AMINOTRANSFERASE 9 U/L (12-78)
[2021-10-21 09:59] LABS: CHLORIDE 126 mmol/L (98-107); SODIUM SERUM 164 mmol/L (136-145)
--- NOTE | 2021-10-21 10:01 | NUR ---
LAB RESULT LACTIC ACID-2.0, NA-164 DR BARRERA AWARE
[2021-10-21 10:05] LABS: BILIRUBIN,URINE SMALL (NEGATIVE); COLOR,URINE YELLOW (YELLOW); LEUKOCYTE ESTERASE ,URINE NEGATIVE (NEGATIVE); NITRITE, URINE NEGATIVE (NEGATIVE); PROTEIN,URINE 30 mg/dl (NEGATIVE); UGLUCOSE NEGATIVE (NEGATIVE)
[2021-10-21 10:08] LABS: CALCIUM, SERUM 8.9 mg/dL (8.5-10.1)
--- NOTE | 2021-10-21 10:48 | NUR ---
TAKEN TO CT VIA TARA
[2021-10-21] MEDS ORDERED: PIPERACILLIN /TAZOBACTAM 3.375 G in IV D5W 50 ML IV ONE (11:30)
[2021-10-21] MEDS ORDERED: LEVOFLOXACIN 750 MG /D5W 150ML 150 ML IV ONE ×2 (11:30→11:40)
[2021-10-21 11:33] LABS: BACTERIA,URINE Many /HPF (None Seen); RBC,URINE 0-2 /HPF (0-2)
[2021-10-21 11:34] LABS: MUCUS,URINE Many /LPF (None Seen); SQUAMOUS EPITHELIAL CELL,UR Few /HPF (None Seen)
--- NOTE | 2021-10-21 11:38 | NUR ---
[facility] CALLED AUTOMOTIVE WHOLESALE PARTS ADVISOR PAGED.
[2021-10-21] MEDS ORDERED: ACETAMINOPHEN 325 MG TABLET PO PRN (12:00)
[2021-10-21] MEDS ORDERED: PIPERACILLIN /TAZOBACTAM 4.5 G in IV D5W 50 ML IV SCH (12:00)
[2021-10-21] MEDS ORDERED: IV NS 0.9% 1,000 ML IV PRN (12:00)
[2021-10-21] MEDS ORDERED: ONDANSETRON HCL/PF 4 MG/2 ML VIAL IVP PRN (12:00)
[2021-10-21] MEDS ORDERED: VANCOMYCIN 1 GM in IV D5W 250 ML IV ONE (12:30)
[2021-10-21 13:06] LABS: ABG BASE EXCESS 1.5 mmol/L; ABG PCO2 44.1 mmHg (35.0-45.0); ABG PO2 71.3 mmHg (75.0-100.0); MetHb 0.2 % (0.0-1.5); SITE, ABG Left Radial; VENT MODE, BG 4LPM NC
--- NOTE | 2021-10-21 13:11 | NUR ---
CALLED TO GIVE REPORT TO NURSE BLANC, PER VLADIMIR NURSE IS PASSING MEDS, WILL CALL AGAIN
--- NOTE | 2021-10-21 13:24 | NUR ---
REPORT GIVEN TO GUANACO GORDILLO FOR VAN
--- NOTE | 2021-10-21 13:29 | NUR ---
PER NURSE GUANACO, ROOM IS NOT READY YET, STILL CLEANING
--- NOTE | 2021-10-21 14:00 | NUR ---
TRANSFERRED TO BED 108 IN STABLE CONDITION
--- NOTE | 2021-10-21 14:30 | NUR ---
AIRCRAFT POWERPLANT REPAIRER OPENING NOTE PATIENT RECEIVED FROM ER VIA GURNEY ACCOMPANIED BY 2 ER STAFF AND TRANSFERRED TO BED VIA 2 PERSON ASSIST. PATIENT IS A/O X 1, WITH OXYGEN VIA NASAL CANNULA AT 2L/MIN. WITH LEFT ANTECUBITAL IV SALINE LOCK INTACT AND PATENT.ADMITTING V/S FOLLOWS: T 97.4, HR 77, RR 18, O2 SATURATION 96%, BP 130/87. COMPREHENSIVE PHYSICAL ASSESSMENT DONE. SKIN ISSUES DOCUMENTED PER HOSPITAL PROTOCOL. SINUS RHYTHM ON RETREAD MOLD OPERATOR. NOT IN ANY FORM OF DISTRESS. SAFETY MEASURES IN PLACE. BED IN LOWEST POSITION, 3 SIDE RAILS UP, CALL LIGHT WITHIN REACH. WILL CONTINUE TO MONITOR THROUGHOUT SHIFT.
[2021-10-21] MEDS: IV D5/0.45 NACL 1,000 ML IV PRN (14:49)
[2021-10-21] MEDS ORDERED: VANCOMYCIN 0.75 GM in IV D5W 250 ML IV ONE (15:00)
[2021-10-21 16:00] VITALS: BP 111/67
[2021-10-21] MEDS: ENOXAPARIN SODIUM 30 MG/0.3 ML DISP.SYRIN SQ SCH (17:24)
[2021-10-21] MEDS: PIPERACILLIN /TAZOBACTAM 3.375 G in IV D5W 50 ML IV SCH (17:25)
--- NOTE | 2021-10-21 18:50 | NUR ---
STUFFING MACHINE OPERATOR CLOSING NOTE PATIENT IS IN BED AND REMAINS A/O X 1, WITH OXYGEN VIA NASAL CANNULA AT 2L/MIN,OXYGEN SATURATION AT 99-100%. WITH LEFT ANTECUBITAL IV INFUSING WITH D5 1/2 NS AT 100 ML/HR. WITH RIGHT ANTECUBITAL SALINE LOCK INTACT AND PATENT.SINUS RHYTHM ON T RAIL TURNER. NOT IN ANY FORM OF DISTRESS. SAFETY MEASURES IN PLACE. BED IN LOWEST POSITION, 3 SIDE RAILS UP, CALL LIGHT WITHIN REACH. WILL ENDORSE TO CUT OFF SAW SET UP OPERATOR NURSE.
--- NOTE | 2021-10-21 19:00 | NUR ---
RN NOTE RECEIVED PATIENT IN BED, CONFUSED, IN NO ACUTE DISTRESS AT THIS TIME. RESPIRATION UNLABORED, SATURATION AT 100% ON 2L VIA NC, SB ON THE MONITOR, HR IS 56. IV LINE AT R AC 20G, AND LAC 18G BOTH PATENT AND FLUSHING WELL, NO S/S OF INFECTION OR INFILTRATION WITH D5 1/2 NS INFUSING AT 100 ML/HR. B SOFT WRIST RESTRAINTS IN PLACE, SKIN AND CIRCULATION WAS CHECKED AND ARE WNL. SAFETY MEASURES IMPLEMENTED. PATIENT BED ALARM IS ON. HEAD OF BED ELEVATED. BED IS LOCKED, IN LOWEST POSITION AND SIDE RAILS UP. WILL CONTINUE TO MONITOR AND REASSESS FOR ANY CHANGES.
[2021-10-21 20:00] VITALS: BP 95/56
[2021-10-22] VITALS: BP 103/53
[2021-10-22] MEDS: PIPERACILLIN /TAZOBACTAM 3.375 G in IV D5W 50 ML IV SCH ×5 (00:09→23:47)
[2021-10-22] MEDS: VANCOMYCIN 500 MG in IV D5W 100 ML IV SCH ×2 (02:23→15:18)
[2021-10-22 04:00] VITALS: BP 103/54
[2021-10-22] MEDS: IV D5/0.45 NACL 1,000 ML IV PRN ×2 (04:52→23:48)
--- NOTE | 2021-10-22 05:04 | NUR ---
RN NOTE URINE COLLECTED, LAB NOTIFIED
[2021-10-22 06:15] LABS: BILIRUBIN,URINE NEGATIVE (NEGATIVE); COLOR,URINE YELLOW (YELLOW); LEUKOCYTE ESTERASE ,URINE NEGATIVE (NEGATIVE); NITRITE, URINE NEGATIVE (NEGATIVE); PROTEIN,URINE TRACE mg/dl (NEGATIVE); UGLUCOSE NEGATIVE (NEGATIVE)
[2021-10-22 06:33] LABS: BASOPHILS % (AUTO) 0.3 % (0.0-2.0); EOSINOPHILS % (AUTO) 0.1 % (0.0-6.0); HEMATOCRIT 40 % (33-45); HEMOGLOBIN 12.7 g/dL (11.5-14.8); LYMPHOCYTES # (AUTO) 0.5 K/uL (0.8-4.8); LYMPHOCYTES % (AUTO) 13.9 % (20.0-44.0); MEAN CORPUSCULAR HGB CONC 32 g/dl (31.0-36.0); MEAN CORPUSCULAR VOLUME 96 fL (82-100); MONOCYTES # (AUTO) 0.3 K/uL (0.1-1.30); NEUTROPHILS # (AUTO) 2.9 K/uL (1.8-8.9); NEUTROPHILS % (AUTO) 77.7 % (43.0-81.0); PLATELET COUNT (AUTO) 108 K/uL (150-450); RED BLOOD CELL COUNT(AUTO) 4.18 MIL/uL (4.0-5.2); WHITE BLOOD COUNT (AUTO) 3.7 K/uL (4.3-11.0)
[2021-10-22 07:08] LABS: BILIRUBIN,TOTAL 0.4 mg/dL (0.2-1.0); CALCIUM, SERUM 8.5 mg/dL (8.5-10.1); CREATININE 0.8 mg/dL (0.6-1.3); MAGNESIUM 2.1 mg/dL (1.8-2.4); POTASSIUM 2.9 mmol/L (3.5-5.1); TOTAL PROTEIN, SERUM 5.5 g/dL (6.4-8.2)
--- NOTE | 2021-10-22 07:20 | NUR ---
RN NOTES: RN NOTE RECEIVED PATIENT IN BED, CONFUSED, IN NO ACUTE DISTRESS AT THIS TIME. RESPIRATION UNLABORED, SATURATION AT 100% ON 2L VIA NC, SR ON THE MONITOR,. IV LINE AT R AC 20G, AND LAC 18G BOTH PATENT AND FLUSHING WELL, NO S/S OF INFECTION OR INFILTRATION WITH D5 1/2 NS INFUSING AT 100 ML/HR. B SOFT WRIST RESTRAINTS IN PLACE, SKIN AND CIRCULATION WAS CHECKED AND ARE WNL. SAFETY MEASURES IMPLEMENTED. PATIENT BED ALARM IS ON. HEAD OF BED ELEVATED. BED IS LOCKED, IN LOWEST POSITION AND SIDE RAILS UP. WILL CONTINUE TO MONITOR AND REASSESS FOR ANY CHANGES.
[2021-10-22 07:31] LABS: CREATININE, URINE 117.9 MG/DL (30.0-125.0); URINE TOTAL PROTEIN 60.7 mg/dL (0-11.9)
--- NOTE | 2021-10-22 07:55 | NUR ---
RN NOTES: LAB CALLED TO REPORT SODIUM 159 AND POTASSIUM 2.9, CALLED RefugioIAN WITH ORDER OF kcl 40 mEq iv, ORDER CARRIED OUT
[2021-10-22 08:00] VITALS: BP 120/58
[2021-10-22] MEDS: POTASSIUM CL. PREMIX PERIPHER. 50 ML IV SCH ×4 (08:20→11:15)
--- NOTE | 2021-10-22 09:48 | NUR ---
RN nnotes: spoke to norman hunter NP to report episode of A. fib and HR 139-147 he received hydralazine 50 mg and lopressor 25 mg and norvasc 10 mg at 8:30, no amiodarone or cordarone, HR now is 85 with no new order at this time
[2021-10-22 10:31] LABS: BACTERIA,URINE None seen /HPF (None Seen); RBC,URINE 0-2 /HPF (0-2); SQUAMOUS EPITHELIAL CELL,UR Few /HPF (None Seen)
[2021-10-22 12:00] VITALS: BP 130/75
[2021-10-22] MEDS: ENOXAPARIN SODIUM 30 MG/0.3 ML DISP.SYRIN SQ SCH (12:26)
--- NOTE | 2021-10-22 13:19 | NUR ---
RN NOTES: CALLED DR JULIAN MADE AWARE OF POSITIVE BLOOD CULTURE, ALSO MADE AWARE URINE OUTPUT SINCE 7 AM WAS 100 ML WITH ORDER TO GIVE BOLUS NS [address] REED CATHETER
[2021-10-22] MEDS ORDERED: IV NS 0.9% 1,000 ML IV PRN (13:30)
[2021-10-22] MEDS: POTASSIUM PHOSPHATE MM 7.5 MMOL in IV NS 0.9% 100 ML IV SCH ×2 (13:32→16:06)
[2021-10-22 15:18] LABS: EOSINOPHIL,URINE None Seen
[2021-10-22 16:00] VITALS: BP 116/78
--- NOTE | 2021-10-22 19:25 | NUR ---
RN NOTES RECEIVED PT FOR CONTINUITY OF CARE. PATIENT A/OX1; NON VERBAL IN NO S/SX OF ACUTE DISTRESS AT THIS TIME; CURRENTLY ON 1L OF VIA NC; WITH 02 SAT 94% AT THIS TIME. WILL ENSURE SAFETY MEASURES WITHIN THE SHIFT. PATIENT BED ALARM IS ON. HEAD OF BED ELEVATED. BED IS LOCKED, IN LOWEST POSITION AND SIDE RAILS UP. CALL LIGHT WITHIN REACH OF THE PATIENT. APPLICABLE ISOLATION PRECAUTIONS IN PLACE. WILL CONTINUE TO MONITOR AND REASSESS FOR ANY CHANGES AND WILL CARRY OUT ANY ONGOING AND ACTIVE MD ORDER.
--- NOTE | 2021-10-22 19:26 | NUR ---
RN closing notes: RN NOTE PATIENT IN BED, CONFUSED, IN NO ACUTE DISTRESS AT THIS TIME. RESPIRATION UNLABORED, SATURATION AT 100% ON 2L VIA NC, SB ON THE MONITOR, HR IS 56. IV LINE AT R AC 20G, AND L forearm 18G BOTH PATENT AND FLUSHING WELL, NO S/S OF INFECTION OR INFILTRATION WITH D5 1/2 NS INFUSING AT 100 ML/HR. B SOFT WRIST RESTRAINTS IN PLACE, SKIN AND CIRCULATION WAS CHECKED AND ARE WNL. SAFETY MEASURES IMPLEMENTED. PATIENT BED ALARM IS ON. HEAD OF BED ELEVATED. BED IS LOCKED, IN LOWEST POSITION AND SIDE RAILS UP. ENDORSE TO ONCOMING NURSE TO CONTINUE TO MONITOR
[2021-10-22 20:00] VITALS: BP 137/73
[2021-10-23] VITALS: BP 117/73
[2021-10-23] MEDS: VANCOMYCIN 500 MG in IV D5W 100 ML IV SCH ×2 (03:19→15:12)
[2021-10-23 04:00] VITALS: BP 98/56
[2021-10-23] MEDS: PIPERACILLIN /TAZOBACTAM 3.375 G in IV D5W 50 ML IV SCH ×4 (05:19→23:04)
--- NOTE | 2021-10-23 06:38 | NUR ---
RN CLOSING NOTE: PATIENT REMAINS IN ROOM IN NO SIGNS OF RESPIRATORY DISTRESS, PATIENT STILL ON 1L OF 02 VIA NC ; TOLERATING WELL SATURATING @ >92% SP02. SAFETY MEASURES IMPLEMENTED, BED IN LOWEST POSITION, LOCKED, SIDE RAILS UP, CALL LIGHT WITHIN REACH. ALL NEEDS AND ORDERS ADDRESSED DURING THE SHIFT. IV ACCESS MAINTAINED INTACT, SECURED AND FLUSHING WELL. IV FLUID RUNNING ORDERED. ALL DUE MEDS GIVEN ORDERED & SCHEDULED ; PATIENT TOLERATED WELL. PATIENT KEPT CLEAN AND COMFORTABLE WITHIN THE SHIFT. PATIENT ENDORSED TO INCOMING SHIFT RN WITH STABLE VITAL SIGN AND FOR CONTINUITY OF CARE.
[2021-10-23 06:56] LABS: CALCIUM, SERUM 8.2 mg/dL (8.5-10.1); CREATININE 0.5 mg/dL (0.6-1.3); POTASSIUM 2.9 mmol/L (3.5-5.1)
--- NOTE | 2021-10-23 07:13 | NUR ---
TD RN OPENING NOTES: RECEIVED PATIENT IN BED, CONFUSED, IN NO ACUTE DISTRESS AT THIS TIME. RESPIRATION UNLABORED, SATURATION AT 100% ON 2L VIA NC, SR ON THE MONITOR,. IV LINE AT R AC 20G, AND RIGHT FOREARM 18G BOTH PATENT AND FLUSHING WELL, NO S/S OF INFECTION OR INFILTRATION WITH D5 1/2 NS INFUSING AT 100 ML/HR. B SOFT WRIST RESTRAINTS IN PLACE, SKIN AND CIRCULATION WAS CHECKED AND ARE WNL. SAFETY MEASURES IMPLEMENTED. PATIENT BED ALARM IS ON. HEAD OF BED ELEVATED. BED IS LOCKED, IN LOWEST POSITION AND SIDE RAILS UP. WILL CONTINUE TO MONITOR AND REASSESS FOR ANY CHANGES.
[2021-10-23 08:00] VITALS: BP 108/52
--- NOTE | 2021-10-23 09:00 | NUR ---
RN notes: called DR Berumen made aware of sodium 156 and potassium 2.9 with order of KCL 40 mEq IV
[2021-10-23] MEDS: POTASSIUM CL. PREMIX PERIPHER. 50 ML IV SCH ×6 (09:02→14:38)
[2021-10-23 12:00] VITALS: BP 103/55
[2021-10-23] MEDS ORDERED: IV NS 0.9% 1,000 ML IV ONE (12:00)
--- NOTE | 2021-10-23 12:00 | NUR ---
rn notes: seen by DR Berumen asked for plan for pt to have GT he said to insert NGT and he will call GI MD to schedule GT placement , also MD order to give bolus of NS 1 liter
[2021-10-23] MEDS: ENOXAPARIN SODIUM 30 MG/0.3 ML DISP.SYRIN SQ SCH (12:30)
--- NOTE | 2021-10-23 13:58 | NUR ---
RN notes: chest x ray shows NGT in the stomach , spoke to DR Berumen with order to start feeding,with new order, Son Adrián made aware of the new order
[2021-10-23] MEDS: VANCOMYCIN HCL 0.75 GM in IV D5W 250 ML IV SCH (14:07)
[2021-10-23] MEDS ORDERED: GLUCERNA 1.2 1,000 ML BOTTLE NG PRN ×2 (15:00)
[2021-10-23 16:00] VITALS: BP 109/57
--- NOTE | 2021-10-23 19:10 | NUR ---
RN NOTES RECEIVED PT FOR CONTINUITY OF CARE. PATIENT A/OX1; NON VERBAL IN NO S/SX OF ACUTE DISTRESS AT THIS TIME; CURRENTLY ON 1L OF 02 VIA NC; WITH 02 SAT >95% AT THIS TIME. WITH IV FLUID ORDERED AND TUBE FEEDING PRESCRIBED. WILL ENSURE SAFETY MEASURES WITHIN THE SHIFT. PATIENT BED ALARM IS ON. HEAD OF BED ELEVATED. BED IS LOCKED, IN LOWEST POSITION AND SIDE RAILS UP. CALL LIGHT WITHIN REACH OF THE PATIENT. WILL CONTINUE TO MONITOR AND REASSESS FOR ANY CHANGES AND WILL CARRY OUT ANY ONGOING AND ACTIVE MD ORDER.
--- NOTE | 2021-10-23 19:14 | NUR ---
TD RN closing notes: PATIENT IN BED, awake but not verbally responsive, IN NO ACUTE DISTRESS AT THIS TIME. RESPIRATION UNLABORED, SATURATION AT 100% ON 2L VIA NC, SR ON THE MONITOR, IV LINE AT MARINA 18G, PATENT AND FLUSHING WELL, NO S/S OF INFECTION OR INFILTRATION WITH D5 1/2 NS INFUSING AT 100 ML/HR. B SOFT WRIST RESTRAINTS IN PLACE, SKIN AND CIRCULATION WAS CHECKED AND ARE WNL. SAFETY MEASURES IMPLEMENTED. PATIENT BED ALARM IS ON. HEAD OF BED ELEVATED.nNGT IN PLACE RUNNING GLUCERNA 1.2 AT 20 ML/HR. BED IS LOCKED, IN LOWEST POSITION AND SIDE RAILS UP. ENDORSE TO ONCOMING NURSE TO CONTINUE TO MONITOR
[2021-10-23 20:00] VITALS: BP 105/62
[2021-10-23] MEDS ORDERED: IV PREMIX D5W + KCL 1,000 ML IV ONE (20:50)
[2021-10-23] MEDS: Potassium Chloride 20 MEQ in IV D5W 1,000 ML IV SCH (20:56)
[2021-10-24] VITALS: BP 98/54
[2021-10-24] MEDS: VANCOMYCIN HCL 0.75 GM in IV D5W 250 ML IV SCH ×2 (02:11→22:20)
[2021-10-24] MEDS: VANCOMYCIN 500 MG in IV D5W 100 ML IV SCH (03:29)
[2021-10-24 04:00] VITALS: BP 101/57
--- NOTE | 2021-10-24 04:00 | NUR ---
RN NOTES PATIENT REMAINED TO BE IN NO SIGNS OF ACUTE RESPIRATORY DISTRESS , VITAL SIGNS STABLE AT THIS TIME. REGULAR TURNING AND REPOSITIONING DONE Q2H AND AM PATIENT CARE DONE. WILL CONTINUE TO MONITOR AND REASSESS FOR ANY CHANGES THROUGHOUT THE SHIFT.
[2021-10-24] MEDS: PIPERACILLIN /TAZOBACTAM 3.375 G in IV D5W 50 ML IV SCH ×3 (05:39→17:07)
[2021-10-24] MEDS ORDERED: IV PREMIX D5W + KCL 1,000 ML IV ONE (05:47)
[2021-10-24] MEDS: Potassium Chloride 20 MEQ in IV D5W 1,000 ML IV SCH ×2 (06:22→17:06)
[2021-10-24 07:09] LABS: CALCIUM, SERUM 7.8 mg/dL (8.5-10.1); CREATININE 0.5 mg/dL (0.6-1.3); POTASSIUM 3.4 mmol/L (3.5-5.1)
--- NOTE | 2021-10-24 07:30 | NUR ---
TD RN AM NOTES RECEIVED PT FOR CONTINUITY OF CARE. IN BED, PATIENT A/OX1; NON VERBAL IN NO S/SX OF ACUTE DISTRESS AT THIS TIME; CURRENTLY ON 1L OF 02 VIA NC; WITH 02 SAT >95% AT THIS TIME. SB HR 56 ON MONITOR. NO SIGNS OF PAIN. WITH IV FLUID ORDERED AND TUBE FEEDING ONGOING AT 20 ML/HR. CHECKED FOR PLACEMENT. O RESIDUAL. ON BILATERAL SOFT WRIST RESTRAINTS, RELEASED AND CHECKED FOR CIRCULATION/PULSES. THEN EVERY 2 HOURS. SEE NURSING FLOWSHEET FOR SKIN ISSUES. PATIENT BED ALARM IS ON. HEAD OF BED ELEVATED. BED IS LOCKED, IN LOWEST POSITION AND SIDE RAILS UP. CALL LIGHT WITHIN REACH OF THE PATIENT. WILL CONTINUE TO MONITOR AND REASSESS FOR ANY CHANGES AND WILL CARRY OUT ANY ONGOING AND ACTIVE MD ORDER.
[2021-10-24 08:00] VITALS: BP 95/55
[2021-10-24 12:00] VITALS: BP 105/62
[2021-10-24] MEDS: ENOXAPARIN SODIUM 30 MG/0.3 ML DISP.SYRIN SQ SCH (12:41)
[2021-10-24 16:00] VITALS: BP 107/65
--- NOTE | 2021-10-24 18:38 | NUR ---
TD RN CLOSING NOTES PT RESTING IN BED, A/OX1; NON VERBAL IN NO S/SX OF ACUTE DISTRESS AT THIS TIME; CURRENTLY ON 1L OF 02 VIA NC; WITH 02 SAT 100%. RESPIRATION UNLABORED. SB HR 58 ON MONITOR. NO SIGNS OF PAIN. WITH IV FLUID ORDERED AND TUBE FEEDING ONGOING AT NOW AT 30 ML/HR. CHECKED FOR PLACEMENT. O RESIDUAL. ON BILATERAL SOFT WRIST RESTRAINTS, RELEASED AND CHECKED FOR CIRCULATION/PULSES EVERY [address], WITH 1800URINE OUTPUT. PATIENT BED ALARM IS ON. HEAD OF BED ELEVATED. BED IS LOCKED, IN LOWEST POSITION AND SIDE RAILS UP. CALL LIGHT WITHIN REACH OF THE PATIENT. ALL NEEDS MET, PM CARE DONE EARLIER, WILL ENDORSE TO NEXT SHIFT FOR VAN.
--- NOTE | 2021-10-24 19:42 | NUR ---
RN NOTE PT WITH POLST INDICATING DNR/DNI. VERIFIED WOTH PT SON STAN. NOTIFIED DR GARCIA.
[2021-10-24 20:00] VITALS: BP 101/55
--- NOTE | 2021-10-24 20:07 | NUR ---
RN NOTE' RECEIVED PT IN BED, AWAKE. NONVERBAL. NOT IN ANY DISTRESS. NGT IN PLACE, PATENT, AUSCULTATED FOR PLACEMENT. MINIMAL RESIDUAL NOTED ABOUT 5ML. HOB ELEVATED. FLUSHED WITH WATER. ON IV KCL20 MEQ IN D5W RUNNING AT 100ML/HR. LIANNA. WRIST IN PLACE, GOOD CIRCULATION. REED DRAINING CLEAR URINE OUTPUT. WILL CONTINUE TO MONITOR.
--- NOTE | 2021-10-24 20:55 | NUR ---
RN NOTE PT K 3.4, REPORTED TO DR GARCIA. ORDERED REPEAT IN AM. Addendum: 10/25/21 at 0657 by FRANCA CHIU RN WRONG PATIENT DOCUMENTATION
[2021-10-25] VITALS: BP 90/50
[2021-10-25] MEDS: Potassium Chloride 20 MEQ in IV D5W 1,000 ML IV SCH ×2 (03:20→17:55)
[2021-10-25 04:00] VITALS: BP 92/53
[2021-10-25] MEDS: PIPERACILLIN /TAZOBACTAM 3.375 G in IV D5W 50 ML IV SCH ×5 (05:24→17:54)
[2021-10-25 06:44] LABS: CALCIUM, SERUM 8.1 mg/dL (8.5-10.1); CREATININE 0.5 mg/dL (0.6-1.3); POTASSIUM 3.5 mmol/L (3.5-5.1)
--- NOTE | 2021-10-25 07:02 | NUR ---
RN NOTE PT TOLERATES GT FEEDING GLUCERNA AT 20ML. NO RESIDUAL NOTED. KEPT HOB ELEVATED. NO S/SX OF ASPIRATION NOTED. CONTINUE ON IV FLUIDS OK KCL IN D5W AT 100ML.HR. REED DRAINING WELL. REMAIN ON WRIST RESTRAINTS. NO SKIN BREAKDOWN NOTED. GOOD CIRCULATION. WILL ENDORSE TO NEXT SHIFT NURSE FOR VAN.
--- NOTE | 2021-10-25 07:30 | NUR ---
PT RECEIVED RESTING COMFORTABLY IN BED. NO S/S OR C/O PAIN OR DISTRESS NOTED. SIDE RAILS UP X2, CALL LIGHT LEFT WITHIN REACH. WILL CONTINUE PLAN OF CARE.
[2021-10-25 08:00] VITALS: BP 103/61
[2021-10-25] MEDS ORDERED: GLUCERNA 1.2 1,000 ML BOTTLE NG PRN (10:30)
[2021-10-25] MEDS: VANCOMYCIN HCL 0.75 GM in IV D5W 250 ML IV SCH ×2 (10:34→22:32)
[2021-10-25 12:00] VITALS: BP 108/61
[2021-10-25] MEDS: ENOXAPARIN SODIUM 30 MG/0.3 ML DISP.SYRIN SQ SCH (12:01)
[2021-10-25 12:06] LABS: *SPE A/G RATIO 0.9 (0.7-1.7); *SPE ALPHA-1-GLOBULIN 0.4 g/dL (0.0-0.4); *SPE ALPHA-2-GLOBULIN 0.7 g/dL (0.4-1.0); *SPE BETA GLOBULIN 0.8 g/dL (0.7-1.3); *SPE M-SPIKE Not Observed g/dL (Not Observed)
[2021-10-25 16:00] VITALS: BP 125/76
--- NOTE | 2021-10-25 19:25 | NUR ---
CHANGE OF SHIFT REPORT PT RESTING COMFORTABLY IN BED. NO S/S OR C/O PAIN OR DISTRESS NOTED. SIDE RAILS UP X2, CALL LIGHT LEFT WITHIN REACH. PT KEPT CLEAN, DRY, AND COMFORTABLE. NO SIGNIFICANT CHANGES SINCE PREVIOUS SHIFT. REPORT GIVEN TO YONNY GORDILLO.
--- NOTE | 2021-10-25 19:36 | NUR ---
RN NOTE RECEIVED PT AWAKE, NOT IN ANY DISTRESS. ON O2 AT 1L O2 SAT AT 98%. NO SIGNS OF PAIN. NGT IN PLACE, PATENT. NO RESIDUAL NOTED, ADVANCED RATE TO 3OML/HR. GOAL IS 40ML/HR. ON IVF [id number] IN D5W AT 100MLHR. SR ON TELE MONITOR WITH HR 84. LIANNA WRIST IN PLACE. GOOD CIRCULATION. WILL CONTINUE TO MONITOR.
[2021-10-25 20:00] VITALS: BP 113/82
[2021-10-25] MEDS ORDERED: CEFEPIME 1 GM in IV D5W 50 ML IV SCH (20:00)
[2021-10-25] MEDS: CEFEPIME 2 GM in IV D5W 100 ML IV SCH (21:24)
[2021-10-26] VITALS: BP 101/58
[2021-10-26] MEDS: Potassium Chloride 20 MEQ in IV D5W 1,000 ML IV SCH ×3 (00:17→19:02)
--- NOTE | 2021-10-26 00:21 | NUR ---
RN NOTE PT TOLERATING GT FEEDING, NO RESIDUAL NOTED. ADVANCED TO 40ML/HR GOAL RATE. KEPT HOB ELEVATED WILL CONTINUE TO MONITOR.
[2021-10-26 04:00] VITALS: BP 121/79
[2021-10-26 06:36] LABS: BASOPHILS % (AUTO) 0.4 % (0.0-2.0); EOSINOPHILS % (AUTO) 7.5 % (0.0-6.0); HEMATOCRIT 33 % (33-45); HEMOGLOBIN 11.1 g/dL (11.5-14.8); LYMPHOCYTES # (AUTO) 0.8 K/uL (0.8-4.8); LYMPHOCYTES % (AUTO) 15.9 % (20.0-44.0); MEAN CORPUSCULAR HGB CONC 33 g/dl (31.0-36.0); MEAN CORPUSCULAR VOLUME 93 fL (82-100); MONOCYTES # (AUTO) 0.7 K/uL (0.1-1.30); MONOCYTES % (AUTO) 14.3 % (2.0-12.0); NEUTROPHILS # (AUTO) 3.1 K/uL (1.8-8.9); NEUTROPHILS % (AUTO) 61.9 % (43.0-81.0); PLATELET COUNT (AUTO) 137 K/uL (150-450); RED BLOOD CELL COUNT(AUTO) 3.59 MIL/uL (4.0-5.2); WHITE BLOOD COUNT (AUTO) 5.1 K/uL (4.3-11.0)
--- NOTE | 2021-10-26 07:16 | NUR ---
RN NOTE PT TOLERATES GT FEEDING GLUCERNA AT 40ML/HR. NO RESIDUAL NOTED. KEPT HOB ELEVATED. NO S/SX OF ASPIRATION NOTED.NGT IN PLACE AND PATENT. CONTINUE ON IV FLUIDS OK KCL IN D5W AT 100ML/HR. REED DRAINING WELL. REMAIN ON WRIST RESTRAINTS. WITH EPISODES OF SCRATCHING SKIN, NO NEW SKIN BREAKDOWN NOTED. GOOD CIRCULATION. REMAIN AFEBRILE. WILL ENDORSE TO NEXT SHIFT NURSE FOR VAN.
[2021-10-26 08:00] VITALS: BP 109/67
--- NOTE | 2021-10-26 08:16 | NUR ---
RN opening Notes PT RECEIVED PATIENT IN BED, CONFUSED, EYES OPEN AND NON RESPONSIVE IN FIXED POSITION. NO S/S OF ACUTE DISTRESS . RESPIRATION UNLABORED, SATURATION AT 100% ON 2L VIA NC, SR ON THE MONITOR,. IV LINE AT R AC 20G, AND RIGHT AND FLUSHING WELL, NO S/S OF INFECTION OR INFILTRATION WITH D5 1/2 NS INFUSING AT 100 ML/HR. B SOFT WRIST RESTRAINTS IN PLACE, SKIN AND CIRCULATION WAS CHECKED AND ARE WNL. SAFETY MEASURES IMPLEMENTED. PATIENT BED ALARM IS ON. HEAD OF BED ELEVATED. BED IS LOCKED, IN LOWEST POSITION AND SIDE RAILS UP. WILL CONTINUE TO MONITOR AND REASSESS
[2021-10-26 08:20] LABS: CREATININE 0.5 mg/dL (0.6-1.3); POTASSIUM 3.7 mmol/L (3.5-5.1)
[2021-10-26] MEDS: CEFEPIME 2 GM in IV D5W 100 ML IV SCH ×2 (09:03→21:21)
[2021-10-26] MEDS: VANCOMYCIN HCL 0.75 GM in IV D5W 250 ML IV SCH ×2 (10:20→22:59)
--- NOTE | 2021-10-26 10:54 | NUR ---
RN NOTES PATIENT WAS TAKEN TO FOR HEAD CT AND RETURNED IN STABLE CONDITION PATIENT CONNECTED TO IV ANTIBIOTICS AND TUBE FEEDING ALL SAFETY MEASURES ACCOUNTED BED IN LOWEST OPSITION AND RESTRAINS APPLIED
--- NOTE | 2021-10-26 11:32 | NUR ---
LORAINE RN NOTE SON STAN AT BEDSIDE CONSENT FOR BLOOD TRANSFUSION DONE, WILL F\U
[2021-10-26] MEDS: ENOXAPARIN SODIUM 30 MG/0.3 ML DISP.SYRIN SQ SCH (11:56)
[2021-10-26 12:00] VITALS: BP 96/56
[2021-10-26 16:03] VITALS: BP 94/56
--- NOTE | 2021-10-26 16:13 | NUR ---
PATHOLOGIST ASSISTANT NOTE BP 94/56 DR CONWAY NOTIFIED STATED TO MONITOR
--- NOTE | 2021-10-26 18:42 | NUR ---
television picture tube rebuilder note patient in bed ,all needs attended, unable to remove soft retrain, still trying to remove all lines, with g tube feeding as ordered ,keep hob elevated at all time, rt upper arm hl intact and flushed well , n g tube in place placement checked by auscultation, c bed in lowest and locked position , call light within reach will cont to monitor
--- NOTE | 2021-10-26 18:54 | NUR ---
RN CLOSING NOTES PATIENT IS IN STABLE CONDITION, NON VERBAL WITH IV LINE IN RIGHT UPPER ARM AND NG TUBE PLACEMENT. D5W [id number] RUNNING AT 100ML/H FEEDING RUNNING AT 40ML/H SOFT RESTRAINS BILATERALLY WILL CONTINUE MONITORING IS NPO AFTER MID NIGHT FOR PROCEDURE G TUBE PLACEMENT
[2021-10-26 20:00] VITALS: BP 118/58
--- NOTE | 2021-10-26 20:00 | NUR ---
RN NOTE RECEIVED PT AWAKE, NONVERBAL. NOT IN ANY DISTRESS. ON O2 AT 1L O2 SAT AT 98%. NO SIGNS OF PAIN. NGT IN PLACE, PATENT. NO RESIDUAL NOTED. ON IVF [id number] IN D5W AT 100MLHR. SR ON TELE MONITOR WITH HR 85. LIANNA WRIST IN PLACE. GOOD CIRCULATION. WILL CONTINUE TO MONITOR.
[2021-10-27] VITALS: BP 117/76
--- NOTE | 2021-10-27 00:05 | NUR ---
RN NOTE GT FEEDING HELD FOR PEG PLACEMENT IN AM. CONSENT ON CHART.
[2021-10-27 04:00] VITALS: BP 101/62
[2021-10-27] MEDS: Potassium Chloride 20 MEQ in IV D5W 1,000 ML IV SCH ×3 (06:00→21:57)
--- NOTE | 2021-10-27 06:36 | NUR ---
RN NOTE PT REMAIN NPO SINCE MIDNIGHT. NOT IN ANY DISTRESS. TOLERATING O2 AT 1L. CONTINUE ON IVFLUIDS ON KCL IN D5W 100ML/HR, INFUSING WELL. WRIST RESTRAINTS ON, PT WITH EPISODES OF SCRATCHING AND PULLING OUT TUBINGS. REED DRAINING WELL CLEAR URINE OUTPUT. PT SCHEDULED FOR PEG PLACEMENT. WILL ENDORSE TO NEXT SHIFT NURSE FOR VAN.
[2021-10-27 07:03] LABS: BASOPHILS % (AUTO) 0.4 % (0.0-2.0); HEMATOCRIT 34 % (33-45); HEMOGLOBIN 11.5 g/dL (11.5-14.8); LYMPHOCYTES % (AUTO) 19.3 % (20.0-44.0); MEAN CORPUSCULAR HGB CONC 34 g/dl (31.0-36.0); MEAN CORPUSCULAR VOLUME 92 fL (82-100); MONOCYTES # (AUTO) 0.9 K/uL (0.1-1.30); MONOCYTES % (AUTO) 16.8 % (2.0-12.0); NEUTROPHILS # (AUTO) 2.9 K/uL (1.8-8.9); NEUTROPHILS % (AUTO) 55.5 % (43.0-81.0); PLATELET COUNT (AUTO) 190 K/uL (150-450); RED BLOOD CELL COUNT(AUTO) 3.69 MIL/uL (4.0-5.2); WHITE BLOOD COUNT (AUTO) 5.3 K/uL (4.3-11.0)
--- NOTE | 2021-10-27 07:35 | NUR ---
RN OPENING NOTE PATIENT IS IN BED, NON VERBAL BUT OPENS EYES TO TOUCH, LIGHT PAIN AND VOICE. WITH OXYGEN VIA [employer] CANNULA AT 1 L/MIN. SINUS RHYTHM AT 74 BPM ON CEMENTING MACHINE OPERATOR. WITH NGT IN PLACE AND ON NPO PAST MIDNIGHT IN PREPARATION FOR PEG INSERTION PROCEDURE. . WITH SOFT WRIST RESTRAINTS. WITH RIGHT UPPER ARM IV LINE INFUSING WITH 20 MEQ KCL IN D5W AT 100 ML/HR. NO NOTED PHLEBITIS OR INFILTRATION ON IV SITE. WITH REED CATHETER ATTACHED TO URINE BAG DRAINING TO CLEAR YELLOW URINE. PATIENT IS NOT IN ANY FORM OF DISTRESS. BED IS LOCKED IN LOWEST POSITION, 3 SIDE RAILS UP, CALL LIGHT WITHIN REACH. ALL HOSPITAL SAFETY PRECAUTIONS IN PLACE. WILL CONTINUE TO MONITOR THROUGHOUT SHIFT.
[2021-10-27 07:50] LABS: ALBUMIN 2.4 g/dL (3.4-5.0); BILIRUBIN,TOTAL 0.5 mg/dL (0.2-1.0); CALCIUM, SERUM 8.4 mg/dL (8.5-10.1); CREATININE 0.5 mg/dL (0.6-1.3); MAGNESIUM 2.4 mg/dL (1.8-2.4); PHOSPHORUS 2.8 mg/dL (2.5-4.9); POTASSIUM 3.9 mmol/L (3.5-5.1); TOTAL PROTEIN, SERUM 6.3 g/dL (6.4-8.2)
[2021-10-27 08:07] VITALS: BP 147/63
[2021-10-27 08:47] LABS: BAND % (MANUAL) 1 % (0.0-5.0); EOSINOPHILS % (MANUAL) 10 % (0-4); LYMPHOCYTES % (MANUAL) 15 % (16-48); MONOCYTES % (MANUAL) 10 % (0-11.0); NEUTROPHILS % (MANUAL) 64 (42-76)
[2021-10-27] MEDS: CEFEPIME 2 GM in IV D5W 100 ML IV SCH ×2 (09:12→20:14)
[2021-10-27] MEDS: VANCOMYCIN HCL 0.75 GM in IV D5W 250 ML IV SCH ×2 (10:14→21:54)
--- NOTE | 2021-10-27 11:30 | NUR ---
RN NOTE PATIENT TRANSFERRED BY TWO OR STAFF TO OR FOR PEG INSERTION. V/S:T-98.1, WI 63, RR 18, O2 SAT 96% BP 135/66. NOT IN ANY FORM OF DISTRESS.
[2021-10-27] MEDS: ENOXAPARIN SODIUM 30 MG/0.3 ML DISP.SYRIN SQ SCH (11:46)
--- NOTE | 2021-10-27 11:47 | NUR ---
RN NOTE LOVENOX NOT GIVEN. PATIENT IS IN SURGERY FOR PEG INSERTION.
[2021-10-27 12:04] VITALS: BP 108/66
--- NOTE | 2021-10-27 14:52 | NUR ---
RN NOTE RECEIVED PATIENT FROM OR POST PEG INSERTION. NOT IN ANY FORM OF DISTRESS. V/S: T- 98.1, BP 93/59, HR 60 BPM, O2 SAT 95%. WITH PEG TUBE IN PLACE, INSERTION SITE COVERED WITH DRY INTACT DRESSING. REED CATHETER IN PLACE. RIGHT UPPER ARM IV LINE INTACT.WILL CONTINUE TO MONITOR.
[2021-10-27 16:00] VITALS: BP 98/59
--- NOTE | 2021-10-27 19:04 | NUR ---
RN CLOSING NOTE PATIENT REMAINED STABLE THROUGHOUT SHIFT. ALL NEEDS ATTENDED. PEG TUBE IN PLACE. REED CATHETER IN PLACE. IV LINE ON RIGHT UPPER ARM INFUSING WITH KCL 20 MEQ IN D5W AT 100 ML/HR. NOT IN ANY FORM OF DISTRESS. WILL ENDORSE TO CINEMA OR THEATRE MANAGER NURSE.
--- NOTE | 2021-10-27 19:35 | NUR ---
RN NOTES RECEIVED PATIENT AWAKE, NON-VERBAL, S/P PEG PLACEMENT, ON BILATERAL SOFT WRIST RESTRAINS, BILATERAL UPPER EXTREMITIES CIRCULATION CHECKED AND HAS ALL GOOD CIRCULATION, F/C DRAINING TEA COLORED URINE, [id number], WILL CONTINUE TO MONITOR
[2021-10-27 20:00] VITALS: BP 128/63
[2021-10-28] VITALS: BP 124/79
[2021-10-28 04:00] VITALS: BP 100/60
--- NOTE | 2021-10-28 05:45 | NUR ---
RN NOTES STARTED GLUCERNA 1.2 AT 20ML/HR, WILL MONITOR
--- NOTE | 2021-10-28 06:26 | NUR ---
RN NOTES AWAKE, PT. IS TOLERATING HER FEEDING, NOT IN DISTRESS, NO PAIN NOTED, MORNING CARE RENDERED, [id number], PT. NEEDS ATTENDED
[2021-10-28 06:45] LABS: BASOPHILS % (AUTO) 0.5 % (0.0-2.0); EOSINOPHILS % (AUTO) 5.9 % (0.0-6.0); HEMATOCRIT 36 % (33-45); LYMPHOCYTES % (AUTO) 15.8 % (20.0-44.0); MEAN CORPUSCULAR HGB CONC 34 g/dl (31.0-36.0); MEAN CORPUSCULAR VOLUME 92 fL (82-100); MONOCYTES # (AUTO) 0.9 K/uL (0.1-1.30); MONOCYTES % (AUTO) 13.4 % (2.0-12.0); NEUTROPHILS # (AUTO) 4.3 K/uL (1.8-8.9); NEUTROPHILS % (AUTO) 64.4 % (43.0-81.0); PLATELET COUNT (AUTO) 283 K/uL (150-450); WHITE BLOOD COUNT (AUTO) 6.6 K/uL (4.3-11.0)
[2021-10-28 07:15] LABS: ALBUMIN 2.5 g/dL (3.4-5.0); BILIRUBIN,TOTAL 0.7 mg/dL (0.2-1.0); POTASSIUM 3.7 mmol/L (3.5-5.1); TOTAL PROTEIN, SERUM 6.8 g/dL (6.4-8.2)
--- NOTE | 2021-10-28 07:30 | NUR ---
RN OPENING NOTE PATIENT IS IN BED, OBTUNDED, NON VERBAL, OPEN EYES TO VOICE AND TOUCH. ON ROOM AIR AT 97. SINUS RHYTHM AT 84 BPM ON ELECTRICIAN AIRCRAFT. WITH RIGHT UPPER ARM IV LINE INFUSING WITH 1 LITER D5W + 20 MEQ KCL AT 100 ML/HR.NO NOTED INFILTRATION OR PHLEBITIS ON IV INSERTION SITE. WITH G-TUBE INTACT AND COVERED WITH DRY DRESSING. WITH REED CATHETER ATTACHED TO URINE BAG DRAINING TO A CLEAR YELLOW COLORED URINE. BREATHING UNLABORED AND NOT IN ANY FORM OF DISTRESS. BED IS LOCKED IN LOWEST POSITION, 3 SIDE RAILS UP, CALL LIGHT WITHIN REACH. WILL CONTINUE TO MONITOR THROUGHOUT SHIFT.
[2021-10-28 08:09] VITALS: BP 98/53
[2021-10-28 08:09] LABS: CALCIUM, SERUM 8.9 mg/dL (8.5-10.1); CREATININE 0.6 mg/dL (0.6-1.3); MAGNESIUM 2.3 mg/dL (1.8-2.4); PHOSPHORUS 2.6 mg/dL (2.5-4.9)
[2021-10-28] MEDS: CEFEPIME 2 GM in IV D5W 100 ML IV SCH ×2 (08:27→21:05)
[2021-10-28] MEDS: VANCOMYCIN HCL 0.75 GM in IV D5W 250 ML IV SCH ×2 (09:39→22:21)
[2021-10-28 12:00] VITALS: BP 97/53
[2021-10-28] MEDS: ENOXAPARIN SODIUM 30 MG/0.3 ML DISP.SYRIN SQ SCH (13:22)
[2021-10-28] MEDS: Potassium Chloride 20 MEQ in IV D5W 1,000 ML IV SCH ×2 (13:27→21:51)
[2021-10-28 16:00] VITALS: BP 107/66
--- NOTE | 2021-10-28 18:46 | NUR ---
RN CLOSING NOTE PATIENT REMAINS IN BED, OBTUNDED AND NON-VERBAL. ON ROOM AIR WITH OXYGEN SATURATION AT 94%. SINUS RHYTHM AT 84 ON KETTLE FRY COOK OPERATOR. REED CATHETER INTACT. RIGHT UPPER ARM IV LINE INTACT AND INFUSING WITH 1 L D5W + KCL 20 MEQ AT 100 ML/HR. WITH PEG TUBE INFUSING WITH GLUCERNA 1.2 AT 3O ML/HR. PATIENT REMAINED STABLE THROUGHOUT SHIFT. ALL DUE MEDICATIONS GIVEN. KEPT COMFORTABLE AND CLEAN. ALL HOSPITAL PRECAUTIONS IN PLACE. BED IS LOCKED IN LOWEST POSITION, 3 SIDE RAILS UP, CALL LIGHT WITHIN REACH. WILL ENDORSE TO ENROBING MACHINE OPERATOR NURSE.
--- NOTE | 2021-10-28 19:20 | NUR ---
RN NOTE RECEIVED PATIENT IN BED, NON VERBAL, DOES NOT FOLLOW COMMANDS, IN NO ACUTE DISTRESS AT THIS TIME. RESPIRATION UNLABORED, SATURATION AT 95% ON ROOM AIR, SR ON THE MONITOR, HR IS 82. IV LINE AT MARINA 18G PULLED OUT AND LEAKING, REMOVED ASEPTICALLY, CATHETER INTACT, REINSERTED ANOTHER IV LINE AT DANIS 20G, PATENT AND FLUSHING WELL, D5W WITH KCL 20 MEQS REGULATED AT 100 ML/HR. NOTED GTUBE INTACT POSITIVE PLACEMENT NOTED, NO RESIDUAL, WITH TUBE FEEDING OF GLUCERNA AT 30 ML HR, TOLERATING WELL, ADVANCED TO 40 ML/HR PER MD ORDER. REED CATHETER DRAINING TO A CLEAR, YELLOW OUTPUT. SOFT WRIST RESTRAINTS IN PLACE AT B WRISTS, SKIN AND CIRCULATION CHECKED AND ARE WNL. SAFETY MEASURES IMPLEMENTED. PATIENT BED ALARM IS ON. HEAD OF BED ELEVATED. BED IS LOCKED, IN LOWEST POSITION AND SIDE RAILS UP. CALL LIGHT WITHIN REACH OF THE PATIENT. WILL CONTINUE TO MONITOR AND REASSESS FOR ANY CHANGES.
[2021-10-28 20:00] VITALS: BP 94/58
[2021-10-29] VITALS: BP 117/69
[2021-10-29 04:00] VITALS: BP 110/66
[2021-10-29 06:58] LABS: CALCIUM, SERUM 8.9 mg/dL (8.5-10.1); CREATININE 0.6 mg/dL (0.6-1.3); POTASSIUM 4.1 mmol/L (3.5-5.1)
--- NOTE | 2021-10-29 07:34 | NUR ---
RN OPENING NOTES Patient seen comfortably lying in bed, breathing even and unlabored, no shortness of breath, no apparent distress noted, denies any pain or discomfort at this time, no grimacing. Call light left within reach, safety precautions in place, brakes locked, side rails up X 2.
[2021-10-29] MEDS: Potassium Chloride 20 MEQ in IV D5W 1,000 ML IV SCH (07:53)
[2021-10-29 08:00] VITALS: BP 122/68
[2021-10-29] MEDS: CEFEPIME 2 GM in IV D5W 100 ML IV SCH (08:48)
[2021-10-29] MEDS: VANCOMYCIN HCL 0.75 GM in IV D5W 250 ML IV SCH (09:45)
--- NOTE | 2021-10-29 10:22 | NUR ---
IN STORE REPRESENTATIVE NOTE PER DR MAN CANNON TO DISCHARGE TO [facility] WILL F\U
--- NOTE | 2021-10-29 10:58 | NUR ---
Patient to be discharged to [facility] today, gave report to Violeta GORDILLO (phone [phone]), no apparent distress noted, no shortness of breath, respirations even and unlabored, no s/s of hypo/hyperglycemia, no tremors, no change in level in consciousness, remained afebrile. Patient made aware of the situation, patient unable to sign her paperworks, 2RNs signed all discharge paper works, inventory list signed by 2RNs. Skin assessment done prior to discharge, skin intact, warm to touch, no pallor or cyanosis noted. Patient preferred not to have body check done prior to discharge, explained hospital protocol, informed about risks and benefits, still patient strongly refused thrice, was fighting and became restless, respected patients wishes. Patient's gastric tube remained patent, intact and in place during shift, placement verified by auscultation and aspiration of gastric residuals. All due medications given via gtube per MD order, tolerating well. Patient on gastric tube feeding (Glucerna 1.2 at 40ml/hr), tolerating well, no nausea, no vomiting, no episode of loose stool, abdominal bowel sound present in all quadrants, no grimacing when abdomen palpated. Patient has pal catheter draining clear yellowish urine free from any sediments, no hematuria, and no unusual odor noted in urine, denies any bladder pain or discomfort, bladder non distended during shift, pal catheter flushed and drainage bag was changed. Peripheral IV line on her left upper arm will not be removed prior to discharge, patient will continue to have IV antibiotics per MD order, IV site covered with dry dressings, IV line flushing well, intact, no swelling, no redness, no grimacing when site is touched. Name wristband removed prior to discharge, surgical mask provided for patient to use. Patient left unit at 10:58am with [facility] transportation, stable condition, exit care documents handed to inventory control supervisor. Son Adrián present at bedside, aware and agreeable for patient's discharge today, all concerns and questions addressed, son verbalized understanding and gratitude.
[2021-10-29] MEDS ORDERED: VANCOMYCIN 500 MG in IV D5W 100ml IV ONE (11:00)
== END 2021-10-29 12:25 | DRG 871 ==
LOC: ER 09:01 → TELE-TD 13:09 → TELE1 10-26 11:48
PROVIDERS: ADMIT Internal Medicine
PROC: 0DH63UZ Insertion of Feeding Device into Stomach, Percutaneous Approach (ICD-10-PCS; principal; 2021-10-27)
DX: A41.9 Sepsis, unspecified organism (principal); J69.0 Pneumonitis due to inhalation of food and vomit; J96.01 Acute respiratory failure with hypoxia; G93.41 Metabolic encephalopathy; N17.0 Acute kidney failure with tubular necrosis; N39.0 Urinary tract infection, site not specified; J93.9 Pneumothorax, unspecified; J98.11 Atelectasis; E87.0 Hyperosmolality and hypernatremia; J90 Pleural effusion, not elsewhere classified; Z68.1 Body mass index [BMI] 19.9 or less, adult; R65.20 Severe sepsis without septic shock; E86.0 Dehydration; E11.9 Type 2 diabetes mellitus without complications; E78.5 Hyperlipidemia, unspecified; E86.1 Hypovolemia; Z20.822 Contact with and (suspected) exposure to COVID-19; Z66 Do not resuscitate; Z85.3 Personal history of malignant neoplasm of breast; Z79.899 Other long term (current) drug therapy; Z90.12 Acquired absence of left breast and nipple; F25.9 Schizoaffective disorder, unspecified; R13.10 Dysphagia, unspecified; E87.6 Hypokalemia; B95.62 Methicillin resistant Staphylococcus aureus infection as the cause of diseases classified elsewhere; I10 Essential (primary) hypertension; K44.9 Diaphragmatic hernia without obstruction or gangrene; R62.7 Adult failure to thrive; Z79.84 Long term (current) use of oral hypoglycemic drugs
CPT/HCPCS: 36415; 36600; 43246; 70450-TC; 71045-TC; 71250-TC; 80048-TC; 80053-TC; 80076-TC; 80202-TC; 81001; 82550-TC; 82570-TC; 82803-TC; 82962-TC; 83605-TC; 83735-TC; 83970; 84100-TC; 84155; 84155-TC; 84165; 84300-TC; 84443-TC; 84484-TC; 85025-TC; 85730-TC; 87040-TC; 87081-TC; 87086-TC; 92526; 92611-TC; 94799-TC; C9803; G0378; J0692; J1650; J1956; J2543; J2704; J3370; J3480; J3490; J7030; J7050; J7060; J7070

== ENCOUNTER 2021-10-29 18:53 | Inpatient (IN) | payer MEDICARE, OTHER ==
[~2021-10-29] VITALS: Ht 157.5 cm; Wt 49.0 kg
[2021-10-29] MEDS: CEFEPIME 2 GM in IV D5W 100 ML IV ONE ×2
[~2021-10-29 18:53] MED LIST changes: -BENA5TAB5 PO; -BLOO-538 HHN; +CRAN3875 PO; +DIVA500T2 PO; +GABA100C PO; -GLYB2.5T4 PO; +LATA2.5D15 EACHEYE; -MEMA5TAB42 PO; +NETA2.5D EACHEYE; +RISP1TAB7 PO; +RISP2TAB5 PO; +TIMO5DRO31 EACHEYE
--- NOTE | 2021-10-29 20:01 | NUR ---
PT RETURNED TO ER BED [address]
--- NOTE | 2021-10-29 20:15 | NUR ---
COVID SWAB COLLECTED AND SENT TO LAB
[2021-10-29] MEDS ORDERED: ACETAMINOPHEN 325 MG TABLET PO PRN (21:30)
[2021-10-29] MEDS ORDERED: hydrALAZINE HCL IV 20 MG VIAL IV PRN (21:30)
[2021-10-29] MEDS ORDERED: IV NS 0.9% 1,000 ML BAG IV ONE (21:30)
[2021-10-29] MEDS ORDERED: MORPHINE SULFATE INJ 2 MG/ML DISP.SYRIN IV PRN (21:30)
[2021-10-29] MEDS ORDERED: ONDANSETRON HCL/PF 4 MG/2 ML VIAL IVP PRN (21:30)
[2021-10-29] MEDS ORDERED: Z GUARD REMEDY 4 OZ OINT TP PRN (21:30)
--- NOTE | 2021-10-29 21:32 | NUR ---
PER RN VALUER, PT GOING TO 324-1
[2021-10-29 21:54] LABS: BASOPHILS % (AUTO) 0.3 % (0.0-2.0); EOSINOPHILS % (AUTO) 3.2 % (0.0-6.0); HEMATOCRIT 36 % (33-45); HEMOGLOBIN 12.2 g/dL (11.5-14.8); MEAN CORPUSCULAR HGB CONC 34 g/dl (31.0-36.0); MEAN CORPUSCULAR VOLUME 91 fL (82-100); MONOCYTES # (AUTO) 0.6 K/uL (0.1-1.30); MONOCYTES % (AUTO) 7.4 % (2.0-12.0); NEUTROPHILS # (AUTO) 5.7 K/uL (1.8-8.9); NEUTROPHILS % (AUTO) 76.1 % (43.0-81.0); PLATELET COUNT (AUTO) 354 K/uL (150-450); RED BLOOD CELL COUNT(AUTO) 3.93 MIL/uL (4.0-5.2); WHITE BLOOD COUNT (AUTO) 7.4 K/uL (4.3-11.0)
--- NOTE | 2021-10-29 21:58 | NUR ---
CONTACTED SURGEON DIGITAL IMAGER, NO ANSWER, VOICEMAIL LEFT AND AWAITING A CALL BACK.
[2021-10-29] MEDS ORDERED: FLAGYL/NS RTU 500 MG/100 ML PIGGYBACK IV ONE (22:00)
[2021-10-29] MEDS ORDERED: CEFTRIAXONE 1GM BAG (ER ONLY) 1 GM/50 ML PIGGYBACK IV ONE (22:00)
[2021-10-29] MEDS ORDERED: DEXTROSE 50%-WATER 50 ML DISP.SYRIN IVP ONE (22:00)
[2021-10-29] MEDS: risperiDONE 1 MG TABLET PO SCH (22:00)
[2021-10-29] MEDS ORDERED: CEFTRIAXONE 1GM BAG (ER ONLY) 100 ML IV ONE (22:05)
[2021-10-29] MEDS ORDERED: DEXTROSE 50%-WATER 50 ML DISP.SYRIN ONE (22:05)
[2021-10-29 22:14] LABS: CALCIUM, SERUM 8.9 mg/dL (8.5-10.1); CREATININE 0.6 mg/dL (0.6-1.3); POTASSIUM 3.7 mmol/L (3.5-5.1)
[2021-10-29 22:21] LABS: ALBUMIN 2.8 g/dL (3.4-5.0); BILIRUBIN,DIRECT 0.2 mg/dL (0.0-0.2); BILIRUBIN,TOTAL 0.5 mg/dL (0.2-1.0); TOTAL PROTEIN, SERUM 7.2 g/dL (6.4-8.2)
[2021-10-29] MEDS ORDERED: IOHEXOL-300 100 ML VIAL IV ONE (22:25)
[2021-10-29] MEDS ORDERED: IV NS 0.9% 250 ML IV ONE (22:26)
[2021-10-29] MEDS ORDERED: CT SWABBABLE VALVE TRANS SET 1 EA INFUS.SET MC ONE (22:26)
--- NOTE | 2021-10-29 22:33 | NUR ---
14 FR NG TUBE INSERTED AT L NARE AT 55CM. PT TOLERATED WELL. +AUSCULATION AND GASTRIC RESIDUAL. XRAY ORDER PLACED TO CONFIRM PLACEMENT.
--- NOTE | 2021-10-29 22:33 | NUR ---
Note paulette in EDM - 10/30/21 at 0314 by LUMA 14 FR NG TUBE INSERTED AT L NARE AT 50CM. PT TOLERATED WELL. +AUSCULATION AND GASTRIC RESIDUAL. XRAY ORDER PLACED TO CONFIRM PLACEMENT.
[2021-10-29] MEDS ORDERED: METRONIDAZOLE 500MG/ NS 100ML 100 ML IV ONE (22:37)
--- NOTE | 2021-10-29 23:00 | NUR ---
XRAY AT BEDSIDE FOR NGT PLACEMENT
[2021-10-30] MEDS: CEFEPIME 2 GM in IV D5W 100 ML IV ONE ×2
[2021-10-30] MEDS ORDERED: VANCOMYCIN 1 GM in IV D5W 250ml IV ONE ×2
[2021-10-30] MEDS ORDERED: CEFEPIME 1 GM VIAL ONE (00:02)
--- NOTE | 2021-10-30 00:11 | NUR ---
pt tinnsported to ct via ron
--- NOTE | 2021-10-30 00:17 | NUR ---
NG TUBE ADVANCED 5CM PER RADIOLOGIST RECOMMENDATION. CURRENTLY AT 60CM.
--- NOTE | 2021-10-30 00:31 | NUR ---
pt returned from ct via [facility]
[2021-10-30] MEDS ORDERED: VANCOMYCIN 1 GM VIAL ONE (00:43)
[2021-10-30] MEDS: IV NS 0.9% 1,000 ML IV PRN (02:28)
--- NOTE | 2021-10-30 03:15 | NUR ---
REPORT GIVEN TO DUY MCLEAN
[2021-10-30 03:25] VITALS: BP 122/83
--- NOTE | 2021-10-30 03:45 | NUR ---
RN NOTES PATIENT RECEIVED FROM ER RM 324-2.NONVERBAL WITH EYES OPENED.NO SIGN SOB/DISTRESS NOTED.NG TUBE INTACT NO RESIDUAL NOTED.IV ACCESS RFA 20G INTACT/PATENT.NO FACIAL GRIMASE FOR PAIN/DISCOMFORT.V/S TAKEN IN RECORDED.ALL NEEDS ATTENDED.SAFETY MEASURE IN PLACE.CALL LIGHT WITHIN REACH.WILL CONTINUE TO MONITOR.
--- NOTE | 2021-10-30 03:54 | NUR ---
pt transported to room 324-2 via gurney without incident
[2021-10-30 06:23] LABS: BASOPHILS % (AUTO) 0.4 % (0.0-2.0); EOSINOPHILS % (AUTO) 3.7 % (0.0-6.0); HEMATOCRIT 31 % (33-45); HEMOGLOBIN 10.5 g/dL (11.5-14.8); LYMPHOCYTES # (AUTO) 0.8 K/uL (0.8-4.8); LYMPHOCYTES % (AUTO) 10.4 % (20.0-44.0); MEAN CORPUSCULAR HGB CONC 34 g/dl (31.0-36.0); MEAN CORPUSCULAR VOLUME 91 fL (82-100); MONOCYTES # (AUTO) 0.7 K/uL (0.1-1.30); MONOCYTES % (AUTO) 9.6 % (2.0-12.0); NEUTROPHILS # (AUTO) 5.6 K/uL (1.8-8.9); NEUTROPHILS % (AUTO) 75.9 % (43.0-81.0); PLATELET COUNT (AUTO) 328 K/uL (150-450); RED BLOOD CELL COUNT(AUTO) 3.43 MIL/uL (4.0-5.2); WHITE BLOOD COUNT (AUTO) 7.4 K/uL (4.3-11.0)
[2021-10-30 06:48] LABS: ALBUMIN 2.4 g/dL (3.4-5.0); BILIRUBIN,TOTAL 0.5 mg/dL (0.2-1.0); CALCIUM, SERUM 8.1 mg/dL (8.5-10.1); CREATININE 0.6 mg/dL (0.6-1.3); MAGNESIUM 2.1 mg/dL (1.8-2.4); POTASSIUM 3.3 mmol/L (3.5-5.1); TOTAL PROTEIN, SERUM 6.2 g/dL (6.4-8.2)
--- NOTE | 2021-10-30 07:20 | NUR ---
MS RN OPENING NOTE PATIENT RECEIVED IN BED SLEEPING & EASILY AROUSED. NO S/SX OF DISTRESS/SOB/PAIN. NG TUBE INTACT. IV ACCESS TO MARINA 20G INTACT AND PATENT. SAFETY MEASURES IN PLACE WITH BED AT LOWEST POSITION & LOCKED. CALL-LIGHT WITHIN REACH. WILL CONTINUE TO MONITOR.
[2021-10-30] MEDS: ANASTROZOLE 1 MG TABLET PO SCH (09:00)
[2021-10-30] MEDS: DIVALPROEX SODIUM 500 MG TABLET.DR PO SCH ×3 (09:00→16:18)
[2021-10-30] MEDS: risperiDONE 1 MG TABLET PO SCH ×2 (09:00→23:09)
[2021-10-30] MEDS: GABAPENTIN 100 MG CAPSULE PO SCH ×3 (09:00→16:18)
[2021-10-30] MEDS: TIMOLOL -XE 0.5% 5 ML BOTTLE EACHEYE SCH ×2 (09:28→16:19)
[2021-10-30] MEDS: DORZOLAMIDE OPTH 2% 10 ML BOTTLE RIGHTEYE SCH ×2 (09:29→16:19)
[2021-10-30] MEDS: CEFEPIME 2 GM in IV D5W 100 ML IV SCH ×2 (09:38→15:48)
[2021-10-30 10:23] VITALS: BP 121/79
[2021-10-30] MEDS: VANCOMYCIN HCL 0.75 GM in IV D5W 250 ML IV SCH ×2 (10:42→22:59)
[2021-10-30] MEDS: GLUCERNA 1.2 1,000 ML BOTTLE NG PRN (12:16)
[2021-10-30] MEDS: POTASSIUM CL. PREMIX PERIPHER. 50 ML IV SCH ×2 (12:22→13:52)
[2021-10-30] MEDS: BRIMONIDINE TARTRATE OPHT SOLN 5 ML BOTTLE RIGHTEYE SCH ×2 (13:27→16:19)
[2021-10-30 16:00] VITALS: BP 99/56
--- NOTE | 2021-10-30 18:52 | NUR ---
MS RN CLOSING NOTE PATIENT CONTINUES IN BED AND AWAKE THROUGHOUT SHIFT. REMAINS NONVERBAL & A/O X0. NO FACIAL GRIMACING OR OTHER S/SX OF DISTRESS/SOB/PAIN. NG TUBE INTACT WITH GLUCERNA 1.2CAL RUNNING @ 30ML/HR. IV ACCESS TO MARINA 20G INTACT AND PATENT. SAFETY MEASURES REMAIN IN PLACE WITH BED AT LOWEST POSITION & LOCKED. CALL-LIGHT WITHIN REACH. WILL CONTINUE TO MONITOR.
[2021-10-30 18:55] LABS: BILIRUBIN,URINE NEGATIVE (NEGATIVE); COLOR,URINE YELLOW (YELLOW); LEUKOCYTE ESTERASE ,URINE NEGATIVE (NEGATIVE); NITRITE, URINE NEGATIVE (NEGATIVE); PROTEIN,URINE TRACE mg/dl (NEGATIVE); UGLUCOSE NEGATIVE (NEGATIVE); UROBILINOGEN,URINE 0.2 EU/dL (0.2)
[2021-10-30] MEDS: HEPARIN SODIUM, PORCINE 5000 UNITS/1 ML VIAL SQ SCH (20:00)
--- NOTE | 2021-10-30 20:00 | NUR ---
MS RN NOTE RECEIVED PATIENT IN BED, NON-VERBAL. NO S/S OF APPARENT DISTRESS ON 2LPM OF O2 VIA NC. NOT EXHIBITING PAIN VIA FLACC. PATIENT IS CONTRACTED X4 EXTREMITIES. NG-TUBE NOTED IN L. NARE IN AT 60 CM-- AWAITING PLACEMENT VERIFICATION. REED CATH NOTED IN PLACE DRAINING DARK URINE. L. FA IV ACCESS RUNNING NS @75MLS/HR. BILATERAL MITTENS IN PLACE. SAFETY IN PLACE. WILL CONTINUE WITH PATIENT'S PLAN OF CARE.
--- NOTE | 2021-10-30 20:00 | NUR ---
MS RN NOTE- NON-ADMIN SCHEDULED 1999 HEPARIN HOLD PER DIESEL ENGINE ERECTOR DOCTOR, DR. DELACRUZ. PATIENT SCHED FOR PEG PLACEMENT TOMORROW.
[2021-10-30 20:11] LABS: BACTERIA,URINE None seen /HPF (None Seen); MUCUS,URINE Few /LPF (None Seen); URINE AMORPHOUS PHOSPHATES Few /HPF (None Seen); WBC,URINE 0-2 /HPF (0-3)
--- NOTE | 2021-10-30 20:29 | NUR ---
MS RN NOTE 1999 BP INITIALLY 70/51.. RE-CHECKED AND GOT 76/46 HR 102. MESSAGED FAMILY PRESERVATION WORKER DOCTOR JAYME DOCTOR ORDERED BOLUS OF 1L NS NOW AND 10 MG OF MIDODRINE STAT ONE TIME. AWAITING X-RAY FOR VERIFICATION OF NG TUBE.
--- NOTE | 2021-10-30 20:30 | NUR ---
MS RN NOTE PATIENT TEMPERATURE 100.9, COOLING MEASURES INITIATED. WILL RE-ASSESS.
--- NOTE | 2021-10-30 20:37 | NUR ---
MS RN NOTE- CONSENT PATIENT SCHEDULED FOR PEG PLACEMENT FOR TOMORROW, TELEPHONE CONSENT OBTAINED AT THIS TIME WITH 2 RN WITNESSES. STAN HASSAN SON AGREES WITH THE PROCEDURE AND GAVE HIS CONSENT VIA TELEPHONE. # . CONSENT IN CHART.
[2021-10-30] MEDS ORDERED: MIDODRINE HCL (5MG) 5 MG TABLET PO STA (20:50)
--- NOTE | 2021-10-30 21:30 | NUR ---
MS RN NOTE TEMPERATURE WENT DOWN TO 99.9. WILL CONTINUE TO MONITOR.
--- NOTE | 2021-10-30 22:20 | NUR ---
MS RN NOTE CALLED X-RAY PER X-RAY THEY ARE HAVING DIFFICULTY FINDING PATIENT IN SYSTEM, WILL CALL ME BACK LATER. RE-CHECKED BP AND TEMP. NOW AT 101/60 HR-72. TEMPERATURE 98.7. WILL CONTINUE TO MONITOR.
[2021-10-30] MEDS ORDERED: MIDODRINE HCL (5MG) 5 MG TABLET ONE (23:07)
[2021-10-30] MEDS: SIMVASTATIN 10 MG TABLET PO SCH (23:09)
[2021-10-30] MEDS: LATANOPROST EYE DROP 0.005% 2.5 ML BOTTLE EACHEYE SCH (23:10)
[2021-10-31] MEDS: CEFEPIME 2 GM in IV D5W 100 ML IV SCH ×3 (00:22→16:36)
[2021-10-31 04:44] VITALS: BP 98/56
[2021-10-31] MEDS: IV NS 0.9% 1,000 ML IV PRN (05:37)
[2021-10-31 05:56] LABS: BASOPHILS % (AUTO) 0.3 % (0.0-2.0); EOSINOPHILS % (AUTO) 1.4 % (0.0-6.0); HEMATOCRIT 28 % (33-45); HEMOGLOBIN 9.6 g/dL (11.5-14.8); LYMPHOCYTES % (AUTO) 7.6 % (20.0-44.0); MEAN CORPUSCULAR HGB CONC 34 g/dl (31.0-36.0); MEAN CORPUSCULAR VOLUME 92 fL (82-100); MONOCYTES # (AUTO) 0.5 K/uL (0.1-1.30); MONOCYTES % (AUTO) 4.3 % (2.0-12.0); NEUTROPHILS # (AUTO) 10.9 K/uL (1.8-8.9); NEUTROPHILS % (AUTO) 86.4 % (43.0-81.0); PLATELET COUNT (AUTO) 337 K/uL (150-450); RED BLOOD CELL COUNT(AUTO) 3.08 MIL/uL (4.0-5.2); WHITE BLOOD COUNT (AUTO) 12.6 K/uL (4.3-11.0)
[2021-10-31 06:37] LABS: ALBUMIN 2.1 g/dL (3.4-5.0); BILIRUBIN,TOTAL 0.6 mg/dL (0.2-1.0); CALCIUM, SERUM 7.8 mg/dL (8.5-10.1); CREATININE 0.6 mg/dL (0.6-1.3); PHOSPHORUS 3.1 mg/dL (2.5-4.9); POTASSIUM 3.2 mmol/L (3.5-5.1); TOTAL PROTEIN, SERUM 5.8 g/dL (6.4-8.2)
--- NOTE | 2021-10-31 07:12 | NUR ---
MS RN CLOSING NOTE PATIENT IN BED WITH EYES CLOSED, EASY TO AROUSE. NON-VERBAL. NO S/S OF APPARENT DISTRESS ON 2LPM OF O2 VIA NC. NOT EXHIBITING PAIN VIA FLACC. IV NS RUNNING @75MLS/HR. NEEDS ATTENDED. ALL SCHEDULED MEDICATION ADMINISTERED. WILL ENDORSE TO MORNING SHIFT RN FOR CONTINUITY OF CARE.
--- NOTE | 2021-10-31 07:35 | NUR ---
RN OPENING NOTE- PATIENT IN BED ASLEEP, EASILY AWAKENED,. NON-VERBAL. NO S/S OF APPARENT DISTRESS ON 2LPM OF O2 VIA NC. IV NS RUNNING @75MLS/HR. NEEDS ATTENDED.MONITOR / ASSIST
[2021-10-31] MEDS: risperiDONE 1 MG TABLET PO SCH ×2 (09:00→22:09)
[2021-10-31] MEDS: DIVALPROEX SODIUM 500 MG TABLET.DR PO SCH ×3 (09:00→16:36)
[2021-10-31] MEDS: ANASTROZOLE 1 MG TABLET PO SCH (09:00)
[2021-10-31] MEDS: GABAPENTIN 100 MG CAPSULE PO SCH ×3 (09:00→16:36)
[2021-10-31] MEDS: TIMOLOL -XE 0.5% 5 ML BOTTLE EACHEYE SCH ×2 (09:24→16:36)
[2021-10-31] MEDS: DORZOLAMIDE OPTH 2% 10 ML BOTTLE RIGHTEYE SCH ×2 (09:26→16:37)
[2021-10-31] MEDS: BRIMONIDINE TARTRATE OPHT SOLN 5 ML BOTTLE RIGHTEYE SCH ×2 (09:26→16:37)
[2021-10-31] MEDS: HEPARIN SODIUM, PORCINE 5000 UNITS/1 ML VIAL SQ SCH ×2 (09:28→21:00)
[2021-10-31] MEDS: VANCOMYCIN HCL 0.75 GM in IV D5W 250 ML IV SCH ×2 (10:17→22:26)
[2021-10-31] MEDS ORDERED: POTASSIUM CHLORIDE 20 MEQ POWDER PACKET GT SCH (11:00)
[2021-10-31] MEDS: POTASSIUM CL. PREMIX PERIPHER. 50 ML IV SCH ×4 (12:03→15:40)
--- NOTE | 2021-10-31 13:27 | NUR ---
RN NOTE- DR OCONNOR SAW PT. RESTART FEEDING VIA NG TUBE AND MEDS. NPO AFTER MN TONIGHT FOR PEG PLACEMENT TOMORROW
[2021-10-31 16:00] VITALS: BP 115/67
--- NOTE | 2021-10-31 18:35 | NUR ---
RN CLOSING NOTE- PATIENT IN BED,. NON-VERBAL. NO S/S OF APPARENT DISTRESS ON 2LPM OF O2 VIA NC. IV NS RUNNING @75MLS/HR. TF INFUSING NG TUBE. NPO AFTER MN FOR PEG TUBE TOMORROW. NEEDS ATTENDED. MONITOR / ASSIST
--- NOTE | 2021-10-31 19:38 | NUR ---
MS RN NOTE RECEIVED PATIENT IN BED, NON-VERBAL. NO S/S OF APPARENT DISTRESS ON 2LPM OF O2 VIA NC. EXHIBITING FACIAL GRIMACING--WILL MONITOR. PATIENT IS CONTRACTED X4 EXTREMITIES. NG-TUBE NOTED IN L. NARE IN AT 60 CM. REED CATH NOTED IN PLACE DRAINING DARK URINE. L. FA IV ACCESS RUNNING NS @75MLS/HR. BILATERAL MITTENS IN PLACE. SAFETY IN PLACE. WILL CONTINUE WITH PATIENT'S PLAN OF CARE.
[2021-10-31 20:48] VITALS: BP 119/64
[2021-10-31 21:13] VITALS: BP_SYST 119; BP_SYST 143; BP_DIAS 64; BP_DIAS 89
[2021-10-31] MEDS: SIMVASTATIN 10 MG TABLET PO SCH (22:09)
[2021-10-31] MEDS: LATANOPROST EYE DROP 0.005% 2.5 ML BOTTLE EACHEYE SCH (22:12)
--- NOTE | 2021-10-31 22:24 | NUR ---
MS RN NOTE CALLED [facility] TO VERIFY IF OK TO GIVE 2200 DOSE OF VANCO. VANCO TROUGH = 20. OK TO GIVE PER PHARMACISTS. WILL HANG.
[2021-11-01] MEDS: CEFEPIME 2 GM in IV D5W 100 ML IV SCH ×3 (00:07→15:39)
[2021-11-01] MEDS: IV NS 0.9% 1,000 ML IV PRN (05:45)
[2021-11-01 06:38] LABS: BASOPHILS % (AUTO) 0.3 % (0.0-2.0); EOSINOPHILS % (AUTO) 5.7 % (0.0-6.0); HEMATOCRIT 32 % (33-45); HEMOGLOBIN 11.1 g/dL (11.5-14.8); LYMPHOCYTES # (AUTO) 0.7 K/uL (0.8-4.8); LYMPHOCYTES % (AUTO) 9.4 % (20.0-44.0); MEAN CORPUSCULAR HGB CONC 35 g/dl (31.0-36.0); MEAN CORPUSCULAR VOLUME 93 fL (82-100); MONOCYTES # (AUTO) 0.5 K/uL (0.1-1.30); NEUTROPHILS # (AUTO) 6.2 K/uL (1.8-8.9); NEUTROPHILS % (AUTO) 78.6 % (43.0-81.0); PLATELET COUNT (AUTO) 349 K/uL (150-450); RED BLOOD CELL COUNT(AUTO) 3.46 MIL/uL (4.0-5.2); WHITE BLOOD COUNT (AUTO) 7.9 K/uL (4.3-11.0)
--- NOTE | 2021-11-01 06:39 | NUR ---
MS RN CLOSING NOTE PATIENT IN BED WITH EYES CLOSED, EASY TO AROUSE, NON-VERBAL. BILATERAL MITTENS IN PLACE. NO S/S OF APPARENT DISTRESS ON 2LPM OF O2 VIA NC. NOT EXHIBITING PAIN VIA FLACC. IV NS RUNNING @75 MLS/HR. ALL NEEDS ATTENDED. PICTURES TAKEN. REED CATHETER DRAINING DARK YELLOW URINE. ALL SCHEDULED MEDICATION ADMINISTERED. SAFETY KEPT IN PLACE THE WHOLE SHIFT. WILL ENDORSE TO MORNING SHIFT RN FOR CONTINUITY OF CARE.
[2021-11-01 07:03] LABS: BILIRUBIN,TOTAL 0.3 mg/dL (0.2-1.0); CALCIUM, SERUM 8.3 mg/dL (8.5-10.1); CREATININE 0.5 mg/dL (0.6-1.3); MAGNESIUM 2.2 mg/dL (1.8-2.4); PHOSPHORUS 2.6 mg/dL (2.5-4.9); POTASSIUM 3.5 mmol/L (3.5-5.1); TOTAL PROTEIN, SERUM 5.7 g/dL (6.4-8.2)
--- NOTE | 2021-11-01 07:27 | NUR ---
RN CLOSING NOTE PATIENT IN BED WITH EYES CLOSED, EASILY AWAKENED, NON-VERBAL. BILATERAL MITTENS IN PLACE. NO S/S OF APPARENT DISTRESS ON 2LPM OF O2 VIA NC. IV NS RUNNING @75 MLS/HR. REED CATHETER DRAINING DARK YELLOW URINE. NPO STATUS FOR POSS PEG TUBE . Addendum: 11/01/21 at 0760 by ANIL KATZ RN OPENING NOTE
--- NOTE | 2021-11-01 07:29 | NUR ---
RN OPENING NOTE- PATIENT IN BED WITH EYES CLOSED, EASILY AWAKENED, NON-VERBAL. BILATERAL MITTENS IN PLACE. NO S/S OF APPARENT DISTRESS ON 2LPM OF O2 VIA NC. IV NS RUNNING @75 MLS/HR. REED CATHETER DRAINING DARK YELLOW URINE. NPO STATUS FOR POSS PEG TUBE . MONITOR / ASSIST
[2021-11-01] MEDS: GABAPENTIN 100 MG CAPSULE PO SCH ×3 (08:55→17:00)
[2021-11-01] MEDS: ANASTROZOLE 1 MG TABLET PO SCH (08:55)
[2021-11-01] MEDS: DIVALPROEX SODIUM 500 MG TABLET.DR PO SCH ×3 (08:55→17:00)
[2021-11-01] MEDS: risperiDONE 1 MG TABLET PO SCH ×2 (08:55→22:00)
[2021-11-01] MEDS: TIMOLOL -XE 0.5% 5 ML BOTTLE EACHEYE SCH ×2 (08:55→17:20)
[2021-11-01] MEDS: BRIMONIDINE TARTRATE OPHT SOLN 5 ML BOTTLE RIGHTEYE SCH ×2 (08:56→17:20)
[2021-11-01] MEDS: DORZOLAMIDE OPTH 2% 10 ML BOTTLE RIGHTEYE SCH ×2 (08:56→17:20)
[2021-11-01] MEDS: HEPARIN SODIUM, PORCINE 5000 UNITS/1 ML VIAL SQ SCH ×2 (09:01→21:00)
--- NOTE | 2021-11-01 09:24 | NUR ---
PATIENT WITH 2 L NC O2 WITH SAT 98% NO DISTRESS NOTED. Addendum: 11/01/21 at 0927 by GLORIA GUZMAN RT Amended: Links added.
[2021-11-01] MEDS: VANCOMYCIN HCL 0.75 GM in IV D5W 250 ML IV SCH (09:56)
--- NOTE | 2021-11-01 13:50 | NUR ---
RN NOTE- DR IRAIDA GRANT PT, ORDERED CONTINUE TF AND RX. NPO AFTER MN TONIGHT FOR PEG PLACEMENT TOMORROW Addendum: 11/01/21 at 1402 by ANIL KATZ RN USER ERROR / WRONG INFO ON THIS PATIENT
--- NOTE | 2021-11-01 18:44 | NUR ---
RN CLOSING NOTE- NO CHANGES. PATIENT IN BED WITH EYES CLOSED, EASILY AWAKENED, NON-VERBAL. BILATERAL MITTENS IN PLACE. NO S/S OF APPARENT DISTRESS ON 2LPM OF O2 VIA NC. IV NS RUNNING @75 MLS/HR. REED CATHETER DRAINING YELLOW URINE. NPO STATUS FOR PEG TUBE . MONITOR / ASSIST
--- NOTE | 2021-11-01 19:20 | NUR ---
MS RN OPENING NOTES: RECEIVED PATIENT IN BED, AWAKE, NON VERBAL, CONFUSED. NO S/S OF DISTRESS NOTED. NOT IN PAIN. CALL LIGHT WITHIN REACH. BED ALARM ON. BED IN LOWEST AND LOCKED POSITION. HOB ELEVATED. WITH NGT INTACT,FEEDING WERE HELD,PATIENT IS NPO FOR PEG PLACEMENT TONIGHT. WITH O2 AT 2L/MIN NASAL CANNULA. WITH BOTH HANDS MIITENS RESTRAINTS, WITH GOOD CMS. WITH REED CATHETER INTACT.
[2021-11-01 20:00] VITALS: BP 123/70
[2021-11-01] MEDS: SIMVASTATIN 10 MG TABLET PO SCH (22:00)
[2021-11-01] MEDS: LATANOPROST EYE DROP 0.005% 2.5 ML BOTTLE EACHEYE SCH (22:52)
--- NOTE | 2021-11-01 23:35 | NUR ---
PER CHARGE NURSE RUBI SLOT OPERATIONS DIRECTOR SAID THAT THE PATIENT IS NOT ON SCHEDULE FOR SURGERY RAMESH, INFORMED DR GARCIA, AWAITING FOR ORDER IF IT'S OKAY TO RESUME THE FEEDING.
[2021-11-02] MEDS: CEFEPIME 2 GM in IV D5W 100 ML IV SCH ×3 (00:15→17:31)
[2021-11-02] MEDS: IV NS 0.9% 1,000 ML IV PRN ×2 (00:15→17:25)
--- NOTE | 2021-11-02 00:42 | NUR ---
NGT FEEDING RESUMED AT 30ML/HOUR.
[2021-11-02] MEDS: VANCOMYCIN 1 GM in IV D5W 250ml IV SCH ×2 (05:54→22:48)
[2021-11-02 06:39] LABS: BASOPHILS % (AUTO) 0.4 % (0.0-2.0); EOSINOPHILS % (AUTO) 3.1 % (0.0-6.0); HEMATOCRIT 29 % (33-45); LYMPHOCYTES # (AUTO) 0.7 K/uL (0.8-4.8); LYMPHOCYTES % (AUTO) 7.3 % (20.0-44.0); MEAN CORPUSCULAR HGB CONC 35 g/dl (31.0-36.0); MEAN CORPUSCULAR VOLUME 91 fL (82-100); MONOCYTES # (AUTO) 0.5 K/uL (0.1-1.30); MONOCYTES % (AUTO) 5.5 % (2.0-12.0); NEUTROPHILS # (AUTO) 7.9 K/uL (1.8-8.9); NEUTROPHILS % (AUTO) 83.7 % (43.0-81.0); PLATELET COUNT (AUTO) 384 K/uL (150-450); RED BLOOD CELL COUNT(AUTO) 3.18 MIL/uL (4.0-5.2); WHITE BLOOD COUNT (AUTO) 9.4 K/uL (4.3-11.0)
[2021-11-02 06:55] LABS: BILIRUBIN,TOTAL 0.4 mg/dL (0.2-1.0); CALCIUM, SERUM 7.8 mg/dL (8.5-10.1); CREATININE 0.5 mg/dL (0.6-1.3); TOTAL PROTEIN, SERUM 5.6 g/dL (6.4-8.2)
[2021-11-02 07:22] LABS: POTASSIUM 2.8 mmol/L (3.5-5.1)
--- NOTE | 2021-11-02 07:30 | NUR ---
MS RN OPENING NOTES RECEIVED PATIENT IN BED, AWAKE, NON VERBAL, CONFUSED. NO S/S OF DISTRESS NOTED. NOT IN PAIN. ON O2 AT 2L/MIN NASAL CANNULA TOLERATING WELL. WITH NGT INTACT ON GLUCERNA 1.2 FEEDING AT 30ML/HR VIA NG-TUBE TOLERATING WELL.. WITH BOTH HANDS MIITENS RESTRAINTS, WITH GOOD CMS. WITH REED CATHETER INTACT. CALL LIGHT WITHIN REACH. BED ALARM ON. BED IN LOWEST AND LOCKED POSITION. HOB ELEVATED. WILL CONTINUE TO MONITOR.
--- NOTE | 2021-11-02 08:21 | NUR ---
WOUND CARE CONSULT: PT PRESENTS WITH CACHEXIA, SKIN CONDITION TO BACK WITH BROWN AREAS OF DISCOLORATION, MULTIPLE AREAS OF SKIN DISCOLORATION, LEFT HIP SCARRING, SCARRING/BLANCHABLE REDNESS TO BILATERAL FEET, ALL PRESENT ON ADMISSION. 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 RECOMMENDATIONS MADE FOR SKIN PROTECTION. DISCUSSED WITH NURSING STAFF. DEFER TO PMD FOR SKIN CONDITION ON BACK. PT IS ON [facility] LOW AIRLOSS BED. MD IN AGREEMENT WITH PLAN OF CARE.
[2021-11-02] MEDS: DORZOLAMIDE OPTH 2% 10 ML BOTTLE RIGHTEYE SCH ×2 (09:23→17:33)
[2021-11-02] MEDS: BRIMONIDINE TARTRATE OPHT SOLN 5 ML BOTTLE RIGHTEYE SCH ×2 (09:23→17:33)
[2021-11-02] MEDS: DIVALPROEX SODIUM 500 MG TABLET.DR PO SCH ×3 (09:24→17:33)
[2021-11-02] MEDS: TIMOLOL -XE 0.5% 5 ML BOTTLE EACHEYE SCH ×2 (09:24→17:33)
[2021-11-02] MEDS: POTASSIUM CL. PREMIX PERIPHER. 50 ML IV SCH ×7 (09:24→22:21)
[2021-11-02] MEDS: ANASTROZOLE 1 MG TABLET PO SCH (09:24)
[2021-11-02] MEDS: risperiDONE 1 MG TABLET PO SCH ×2 (09:24→22:45)
[2021-11-02] MEDS: GABAPENTIN 100 MG CAPSULE PO SCH ×3 (09:24→17:34)
[2021-11-02] MEDS: HEPARIN SODIUM, PORCINE 5000 UNITS/1 ML VIAL SQ SCH ×2 (09:26→22:46)
[2021-11-02] MEDS ORDERED: Sodium Phosphate 30 MMOL in IV NS 0.9% 250 ML IV SCH (10:00)
--- NOTE | 2021-11-02 19:15 | NUR ---
MS RN OPENING NOTES: RECEIVED PATIENT IN BED, ASLEEP, EASILY AROUSABLE. NO S/S OF DISTRESS NOTED. NOT IN PAIN. CALL LIGHT WITHIN REACH. BED ALARM ON. BED IN LOWEST AND LOCKED POSITION. HOB ELEVATED AT ALL TIMES. WITH BOTH HAND MITTENS, GOOD CMS. WITH NGT INTACT FEEDING RUNNING AT 35ML/HOUR. HEELS OFFLOADED AT ALL TIMES. TURNED AND REPOSITIONED.
--- NOTE | 2021-11-02 19:30 | NUR ---
MS RN CLOSING NOTES RECEIVED PATIENT IN BED, AWAKE, NON VERBAL, CONFUSED. NO S/S OF DISTRESS NOTED. NOT IN PAIN. ON O2 AT 2L/MIN NASAL CANNULA TOLERATING WELL. WITH NGT INTACT ON GLUCERNA 1.2 FEEDING AT 30ML/HR VIA NG-TUBE TOLERATING WELL. WITH BOTH HANDS MITTENS RESTRAINTS, WITH GOOD CMS. 4 MORE BAGS OF KCL 10MEQ ENDORSED TO MARKETING LEAD RN FOR POTASSIUM REPLACEMENT. WITH REED CATHETER INTACT. CALL LIGHT WITHIN REACH. BED ALARM ON. BED IN LOWEST AND LOCKED POSITION. HOB ELEVATED. WILL ENDORSE TO NEXT SHIFT FOR VAN.
[2021-11-02 20:00] VITALS: BP 88/56
--- NOTE | 2021-11-02 20:27 | NUR ---
CALLED [facility] AND WILL PAGE DR GARCIA RE: BP=[phone]/56, HR=58. AND WILL VERIFY IF OKAY TO GIVE THE HEPARIN FOR LOW BP.
--- NOTE | 2021-11-02 20:44 | NUR ---
RECEIVED THE CALL BACK FROM DR GARCIA RE: INFORMED BP=[phone] HR=58.
[2021-11-02] MEDS: SIMVASTATIN 10 MG TABLET PO SCH (22:45)
[2021-11-02] MEDS: LATANOPROST EYE DROP 0.005% 2.5 ML BOTTLE EACHEYE SCH (22:48)
[2021-11-03] MEDS: CEFEPIME 2 GM in IV D5W 100 ML IV SCH ×3 (00:09→16:02)
[2021-11-03] MEDS: POTASSIUM CL. PREMIX PERIPHER. 50 ML IV SCH (01:18)
[2021-11-03 06:58] LABS: CREATININE 0.5 mg/dL (0.6-1.3); PHOSPHORUS 2.6 mg/dL (2.5-4.9); POTASSIUM 3.5 mmol/L (3.5-5.1)
--- NOTE | 2021-11-03 07:20 | NUR ---
RN OPENING NOTES RECEIVED PATIENT IN BED, ASLEEP, NO SIGNS OF ACUTE DISTRESS NOTED. ON O2 @ 2LPM VIA N/C, NO SOB NOTED, BREATHING EVEN AND UNLABORED. NOTED WITH NG-TUBE ON LEFT NARES WITH FEEDING OF GLUCERNA I.2 @ 30 ML/HR RUNNING. ASPIRATION PRECAUTIONS OBSERVED. WITH LIANNA HAND MITTENS RO PREVENT PULLING OUT NGT. IV ACCESS ON LEFT FOREARM INTACT AND PATENT WITH NS @75ML/HR RUNNING. SAFETY MEASURE IN PLACE, BED IN LOWEST AND LOCKED POSITION, SIDE RAILS UP, CALL LIGHT PLACED WITHIN REACH. WILL CONTINUE TO MONITOR PATIENT.
[2021-11-03] MEDS: ANASTROZOLE 1 MG TABLET PO SCH (08:21)
[2021-11-03] MEDS: DIVALPROEX SODIUM 500 MG TABLET.DR PO SCH ×3 (08:21→17:00)
[2021-11-03] MEDS: risperiDONE 1 MG TABLET PO SCH ×2 (08:21→22:00)
[2021-11-03] MEDS: GABAPENTIN 100 MG CAPSULE PO SCH ×3 (08:21→17:00)
[2021-11-03] MEDS: TIMOLOL -XE 0.5% 5 ML BOTTLE EACHEYE SCH ×2 (08:22→16:53)
[2021-11-03] MEDS: DORZOLAMIDE OPTH 2% 10 ML BOTTLE RIGHTEYE SCH ×2 (08:22→16:53)
[2021-11-03] MEDS: BRIMONIDINE TARTRATE OPHT SOLN 5 ML BOTTLE RIGHTEYE SCH ×2 (08:22→16:52)
[2021-11-03] MEDS: HEPARIN SODIUM, PORCINE 5000 UNITS/1 ML VIAL SQ SCH ×2 (09:00→23:00)
--- NOTE | 2021-11-03 09:12 | NUR ---
RN NOTE ANTICOAGULANT NOT GIVEN, AWAITING SURGERY. PATIENT MAINTAINED ON NPO.
[2021-11-03] MEDS: IV NS 0.9% 1,000 ML IV PRN ×2 (09:50→19:52)
[2021-11-03] MEDS: VANCOMYCIN 1 GM in IV D5W 250ml IV SCH (16:57)
--- NOTE | 2021-11-03 18:00 | NUR ---
RN NOTE PATIENT PICKED UP FOR PEG PLACEMENT VIA BED.
--- NOTE | 2021-11-03 19:00 | NUR ---
RN NOTE PATIENT STILL IN SURGERY, ENDORSED TO NEXT SHIFT.
--- NOTE | 2021-11-03 19:30 | NUR ---
RN OPENING NOTES: RECEIVED PATIENT AWAKE IN BED PATIENT IS S/P G TUBE PLACEMENT NPO TILL TO RESUME IN AM., NO COMPLAIN OF PAIN AND DISCOMFORT AT THIS TIME, ON O2 INHALATION AT 3LPM, PATIENT ON BILATERAL HANDS MITTEN, G TUBE FEEDING RESUME AT 30ML/HR OF GLUCERNA 1.2 TOLERATING WELL, KEPT CLEAN AND DRY ALL NEEDS MET ENDORSE TO INCOMING SHIFT.
[2021-11-03 20:00] VITALS: BP 93/55
[2021-11-03] MEDS: SIMVASTATIN 10 MG TABLET PO SCH (22:00)
[2021-11-03] MEDS: LATANOPROST EYE DROP 0.005% 2.5 ML BOTTLE EACHEYE SCH (23:02)
--- NOTE | 2021-11-03 23:03 | NUR ---
RN NOTE: PATIENT ON NPO S/P G TUBE PLACEMENT TO RESUME FEEDING MEDICATION NOT GIVEN. TOMORROW PER
[2021-11-04] MEDS: CEFEPIME 2 GM in IV D5W 100 ML IV SCH ×2 (00:15→08:32)
[2021-11-04] MEDS: GLUCERNA 1.2 1,000 ML BOTTLE NG PRN (06:22)
--- NOTE | 2021-11-04 07:00 | NUR ---
RN CLOSING NOTES: PATIENT SLEEP IN BED COMFORTABLY, HOB AT 45 DEGREE BED IN LOW POSITION CALL LIGHTS WITHIN REACH, ON ASPIRATION PRECAUTION, PATIENT TO RESUME G TUBE FEEDING OF GLUCERNA 1.2 @30ML/HR TOLERATING WELL, ON O2 INHALATION AT 3LPM SATURATING WELL, PATIENT KEPT CLEAN AND DRY ALL NEEDS MET ENDORSE TO INCOMING SHIFT..
[2021-11-04 07:04] LABS: CALCIUM, SERUM 7.9 mg/dL (8.5-10.1); CREATININE 0.4 mg/dL (0.6-1.3); POTASSIUM 3.1 mmol/L (3.5-5.1)
--- NOTE | 2021-11-04 07:30 | NUR ---
RN OPENING NOTES: RECEIVED PATIENT IN BED ASLEEP, ON SEMI LISA'S POSITION. NON VERBAL, CONTRACTED . NO SOB OR CARDIAC DISTRESS NOTED. PATIENT APPEARED COMFORTABLE NO SIGNS OF GRIMACING. ON O2 INHALATION AT 2LPM, WITH LFA G#20 IV ACCESS PATENT AND INTACT INFUSING NS @75ML/HR WELL. PATIENT ON BILATERAL HANDS MITTEN, G TUBE FEEDING 30ML/HR OF GLUCERNA 1.2 TOLERATING WELL. WITH REED CATHETER NOTED DRAINING YELLOW COLORED URINE VIA GRAVITY. SAFETY MEASURES MAINTAINED: BED LOCKED AND IN LOWEST POSITION, SIDE RAILS UP X 2, CALL LIGHT IN EASY REACH FOR HELP/ASSISTANCE. WILL MONITOR ACCORDINGLY.
[2021-11-04 08:00] VITALS: BP 112/60
[2021-11-04] MEDS: GABAPENTIN 100 MG CAPSULE PO SCH ×2 (09:01→13:27)
[2021-11-04] MEDS: DIVALPROEX SODIUM 500 MG TABLET.DR PO SCH ×2 (09:01→13:27)
[2021-11-04] MEDS: HEPARIN SODIUM, PORCINE 5000 UNITS/1 ML VIAL SQ SCH (09:02)
[2021-11-04] MEDS: ANASTROZOLE 1 MG TABLET PO SCH (09:02)
[2021-11-04] MEDS: risperiDONE 1 MG TABLET PO SCH (09:02)
[2021-11-04] MEDS: TIMOLOL -XE 0.5% 5 ML BOTTLE EACHEYE SCH (09:04)
[2021-11-04] MEDS: BRIMONIDINE TARTRATE OPHT SOLN 5 ML BOTTLE RIGHTEYE SCH (09:04)
[2021-11-04] MEDS: DORZOLAMIDE OPTH 2% 10 ML BOTTLE RIGHTEYE SCH (09:04)
[2021-11-04] MEDS: POTASSIUM CL. PREMIX PERIPHER. 50 ML IV SCH ×4 (10:14→14:07)
[2021-11-04] MEDS: VANCOMYCIN 1 GM in IV D5W 250ml IV SCH (11:34)
--- NOTE | 2021-11-04 16:08 | NUR ---
MS ARTIST MODEL NOTES: PATIENT DC TO [facility]. PATIENT ALERT, NON VERBAL AND CONTRACTED . NO SOB OR CARDIAC DISTRESS NOTED, AFEBRILE. REPORT GIVEN TO DUY DE LA CRUZ OF [facility], PER DUY DE LA CRUZ REMOVE IV ACCESS AND REED CATHETER., FC 400 CC ML YELLOW COLORED URINE. PATIENT FINISHED 4 BAGS OF K PREMIX IV. PHOTOS OF SKIN ISSUES TAKEN AND FILED IN PATIENTS CHART. NO BELONGINGS TAKEN WITH THE PATIENT. PATIENT ACCOMPANIED BY 2 PARAMEDICS AND STAN (SON). DISCHARGE PACKET GIVEN PO EMT NERI. PATIENT STABLE UPON DISCHARGE. TRANSFERRED VIA REGULAR GURNEY. LEFT THE UNIT @1608.
== END 2021-11-04 16:15 | DRG 871 ==
LOC: ER 19:35 → MED 22:26
PROVIDERS: ADMIT Internal Medicine; ATTEND Nurse Practitioner Acute Care
PROC: 0DH63UZ Insertion of Feeding Device into Stomach, Percutaneous Approach (ICD-10-PCS; principal; 2021-11-03)
DX: A41.02 Sepsis due to Methicillin resistant Staphylococcus aureus (principal); G93.41 Metabolic encephalopathy; J69.0 Pneumonitis due to inhalation of food and vomit; J96.01 Acute respiratory failure with hypoxia; J15.6 Pneumonia due to other Gram-negative bacteria; E43 Unspecified severe protein-calorie malnutrition; D68.59 Other primary thrombophilia; N39.0 Urinary tract infection, site not specified; K94.23 Gastrostomy malfunction; E87.0 Hyperosmolality and hypernatremia; R64 Cachexia; K29.70 Gastritis, unspecified, without bleeding; E11.9 Type 2 diabetes mellitus without complications; E78.00 Pure hypercholesterolemia, unspecified; E78.5 Hyperlipidemia, unspecified; F29 Unspecified psychosis not due to a substance or known physiological condition; Z79.899 Other long term (current) drug therapy; Z90.12 Acquired absence of left breast and nipple; Z85.3 Personal history of malignant neoplasm of breast; Z79.811 Long term (current) use of aromatase inhibitors; Z86.14 Personal history of Methicillin resistant Staphylococcus aureus infection; R13.10 Dysphagia, unspecified; I10 Essential (primary) hypertension; Y83.3 Surgical operation with formation of external stoma as the cause of abnormal reaction of the patient, or of later complication, without mention of misadventure at the time of the procedure; Y82.8 Other medical devices associated with adverse incidents; Y92.129 Unspecified place in nursing home as the place of occurrence of the external cause; E88.09 Other disorders of plasma-protein metabolism, not elsewhere classified; F20.9 Schizophrenia, unspecified; F03.90 Unspecified dementia, unspecified severity, without behavioral disturbance, psychotic disturbance, mood disturbance, and anxiety; E87.6 Hypokalemia; Z74.09 Other reduced mobility
CPT/HCPCS: 36415; 43246; 71045-TC; 74160-TC; 76770-TC; 80048-TC; 80053-TC; 80076-TC; 80202-TC; 81001; 82962-TC; 83690-TC; 83735-TC; 84100-TC; 85025-TC; 85610-TC; 85730-TC; 94799-TC; A9563; C9803; G0378; J0692; J0696; J1644; J2270; J2704; J3370; J3480; J3490; J7030; J7040; J7050; J7060; Q9967

== ENCOUNTER 2021-11-20 09:06 | Inpatient (IN) | payer MEDICARE, OTHER ==
[~2021-11-20] VITALS: Ht 152.4 cm; Wt 39.0 kg
[~2021-11-20 09:06] MED LIST changes: +ANAS1TAB50 GT; -ANAS1TAB50 PO
--- NOTE | 2021-11-20 09:06 | NUR ---
TO ER BED 7, [id number] C/O LOW O2 SAT 78%, PUT ON NO REBREATHER NOW SATTING AT 95% PER EMS REPORT, AAOX1, CONNECTED TO MONITOR, CONNECTED TO O2 NC AT 4LPM SATTING AT 97%.
[2021-11-20] MEDS ORDERED: IV NS 0.9% 500 ML BAG IV ONE (09:30)
--- NOTE | 2021-11-20 09:30 | NUR ---
VERBAL ORDER OF 1000ML OF NS PER MD HUMPHREYS
[2021-11-20] MEDS ORDERED: ACETAMINOPHEN 650 MG/SUPP.RECT RC ONE ×2 (09:44→10:00)
[2021-11-20 09:46] LABS: BASOPHILS % (AUTO) 0.1 % (0.0-2.0); EOSINOPHILS % (AUTO) 2.4 % (0.0-6.0); HEMATOCRIT 33 % (33-45); HEMOGLOBIN 10.9 g/dL (11.5-14.8); LYMPHOCYTES % (AUTO) 7.5 % (20.0-44.0); MEAN CORPUSCULAR HGB CONC 33 g/dl (31.0-36.0); MEAN CORPUSCULAR VOLUME 94 fL (82-100); MONOCYTES # (AUTO) 0.9 K/uL (0.1-1.30); MONOCYTES % (AUTO) 6.7 % (2.0-12.0); NEUTROPHILS # (AUTO) 10.7 K/uL (1.8-8.9); NEUTROPHILS % (AUTO) 83.3 % (43.0-81.0); PLATELET COUNT (AUTO) 342 K/uL (150-450); RED BLOOD CELL COUNT(AUTO) 3.53 MIL/uL (4.0-5.2); WHITE BLOOD COUNT (AUTO) 12.8 K/uL (4.3-11.0)
[2021-11-20] MEDS ORDERED: PIPERACILLIN /TAZOBACTAM 3.375 G in IV D5W 50 ML IV ONE (10:00)
[2021-11-20 10:09] LABS: CALCIUM, SERUM 8.5 mg/dL (8.5-10.1); CARBON DIOXIDE 30 mmol/L (21-32); CHLORIDE 109 mmol/L (98-107); CREATININE 0.6 mg/dL (0.6-1.3); GLUCOSE 155 mg/dL (74-106); SODIUM SERUM 145 mmol/L (136-145); UREA NITROGEN, BLOOD 11 mg/dL (7-18)
[2021-11-20 10:25] LABS: ALANINE AMINOTRANSFERASE 11 U/L (12-78); ALBUMIN 2.4 g/dL (3.4-5.0); ALKALINE PHOSPHATASE 77 U/L (46-116); ASPARTATE AMINOTRANSFERASE 12 U/L (15-37); BILIRUBIN,DIRECT 0.1 mg/dL (0.0-0.2); BILIRUBIN,TOTAL 0.2 mg/dL (0.2-1.0); TOTAL PROTEIN, SERUM 6.8 g/dL (6.4-8.2)
[2021-11-20 11:11] LABS: BILIRUBIN,URINE NEGATIVE (NEGATIVE); COLOR,URINE YELLOW (YELLOW); LEUKOCYTE ESTERASE ,URINE NEGATIVE (NEGATIVE); NITRITE, URINE NEGATIVE (NEGATIVE); PH,URINE 8.5 (5.0-8.0); PROTEIN,URINE NEGATIVE (NEGATIVE); UGLUCOSE NEGATIVE (NEGATIVE)
[2021-11-20 11:24] LABS: BACTERIA,URINE 3+ /HPF (None Seen); RBC,URINE 0-2 /HPF (0-2)
[2021-11-20] MEDS ORDERED: ONDANSETRON HCL/PF 4 MG/2 ML VIAL IVP PRN (12:00)
[2021-11-20] MEDS ORDERED: ACETAMINOPHEN 325 MG TABLET PO PRN (12:00)
[2021-11-20] MEDS ORDERED: HYDROCODONE/APAP 5/325MG TABLET PO PRN (12:00)
[2021-11-20] MEDS ORDERED: MAG HYDROX/AL HYDROX/SIMETH 30 ML UDC PO PRN (12:00)
[2021-11-20] MEDS ORDERED: VALP250S22 GT (12:02)
[2021-11-20] MEDS ORDERED: ZINC220C6 PO (12:02)
[2021-11-20] MEDS ORDERED: ASCO500C17 GT (12:02)
[2021-11-20] MEDS ORDERED: MULT-447 GT (12:02)
[2021-11-20] MEDS ORDERED: AMOX250S68 GT (12:02)
[2021-11-20] MEDS ORDERED: NUT.237L30 GT (12:02)
[2021-11-20] MEDS ORDERED: ENOX40DI SQ (12:02)
[2021-11-20] MEDS ORDERED: BENA20TA9 GT (12:02)
[2021-11-20] MEDS ORDERED: BRIM5DRO3 RIGHT EAR (12:02)
[2021-11-20] MEDS ORDERED: DOCU-141 GT (12:02)
[2021-11-20] MEDS ORDERED: CALC1POW43 GT (12:02)
[2021-11-20] MEDS ORDERED: ENOXAPARIN SODIUM 30 MG/0.3 ML DISP.SYRIN ONE (12:11)
[2021-11-20] MEDS ORDERED: GABAPENTIN 100 MG CAPSULE ONE (12:11)
[2021-11-20] MEDS ORDERED: VALPROIC ACID 250 MG/5 ML UDC ONE (12:11)
[2021-11-20] MEDS ORDERED: DIVALPROEX SODIUM 500 MG TABLET.DR PO ONE (12:16)
[2021-11-20] MEDS: GABAPENTIN 100 MG CAPSULE PO SCH ×2 (12:18→19:01)
[2021-11-20] MEDS: DIVALPROEX SODIUM 500 MG TABLET.DR PO SCH ×2 (12:18→19:01)
[2021-11-20] MEDS: ENOXAPARIN SODIUM 30 MG/0.3 ML DISP.SYRIN SQ SCH (12:19)
[2021-11-20] MEDS ORDERED: VANCOMYCIN 500 MG in IV D5W 100ml IV SCH (13:00)
[2021-11-20] MEDS ORDERED: GLUCERNA 1.2 1,000 ML BOTTLE NG PRN (14:30)
--- NOTE | 2021-11-20 14:47 | NUR ---
ROOM 309-1
--- NOTE | 2021-11-20 14:55 | NUR ---
REPORT GIVEN TO NURSE ADAME FOR VAN
--- NOTE | 2021-11-20 15:13 | NUR ---
THE PATIENT IS TRANFERED TO ROOM 309-1 IN STABLE CONDITON AND PER ACLS POLICY.
--- NOTE | 2021-11-20 15:20 | NUR ---
RADIO MECHANICSALES SUPPORT ADVISOR NOTES PATIENT IS LYING COMFORTABLY IN BED. PATIENT IS A/O X1, CONFUSED AND ANXIOUS. PATIENT IS IN NASAL CANNULA WITH 4L OXYGEN; O2 SAT 100%, AND NO S/S OF SOB AND DISTRESS CURRENTLY NOTED AT THIS MOMENT. IV ACCESS ON THE RIGHT FOREARM 20G & LEFT FOREARM 20G RUNNING D5 1/2 NS @ 75 ML/HR TOLERATING WELL, NO S/S OF INFILTRATION AND INFLAMMATION. SAFETY MEASURES INITIATED: BILATERAL SIDE RAILS UP CALL LIGHT WITH REACH. BED ALARM ON ALL MEEDS MET. WILL CONTINUE TO MONITOR FOR VAN.
[2021-11-20] MEDS ORDERED: Z GUARD REMEDY 4 OZ OINT TP PRN (17:00)
[2021-11-20] MEDS ORDERED: TIMOLOL MALEATE/PF 0.25% 1 DROP DROPERETTE EACHEYE SCH (17:00)
[2021-11-20 18:39] VITALS: BP 122/67
--- NOTE | 2021-11-20 19:00 | NUR ---
CO FOUNDER AND DIRECTOR CLOSING NOTES PATIENT IS LYING COMFORTABLY IN BED. PATIENT IS A/O X1, CONFUSED AND ANXIOUS. PATIENT IS IN NASAL CANNULA WITH 4L OXYGEN; O2 SAT 100%, AND NO S/S OF SOB AND DISTRESS CURRENTLY NOTED AT THIS MOMENT. PATIENT IN EXTERNAL MONITOR. IV ACCESS ON THE RIGHT FOREARM 20G & LEFT FOREARM 20G RUNNING D5 1/2 NS @ 75 ML/HR TOLERATING WELL, NO S/S OF INFILTRATION AND INFLAMMATION. SAFETY MEASURES INITIATED: BILATERAL SIDE RAILS UP CALL LIGHT WITH REACH. BED ALARM ON ALL MEEDS MET. WILL ENDORSE TO INCOMING SHIFT FOR VAN.
[2021-11-20] MEDS: SIMVASTATIN 10 MG TABLET PO SCH (19:01)
[2021-11-20] MEDS: DORZOLAMIDE OPTH 2% 10 ML BOTTLE RIGHTEYE SCH (19:05)
[2021-11-20] MEDS: BRIMONIDINE TARTRATE OPHT SOLN 5 ML BOTTLE RIGHTEYE SCH (19:06)
[2021-11-20] MEDS: ZOSYN IVPB 3.375 G in IV D5W 50ml IV SCH ×2 (19:07→23:53)
[2021-11-20] MEDS: TIMOLOL 0.25% SOL OPHTH 10 ML BOTTLE EACHEYE SCH (19:14)
--- NOTE | 2021-11-20 19:47 | NUR ---
LITIGATION SUPPORT ANALYST OPENING NOTES PATIENT IS LYING COMFORTABLY IN BED. PATIENT IS A/O XO NON VERBAL. PATIENT IS IN NASAL CANNULA WITH 4L OXYGEN; O2 SAT 100%, AND NO S/S OF SOB AND DISTRESS CURRENTLY NOTED AT THIS MOMENT. IV ACCESS ON THE RIGHT FOREARM 20G & LEFT FOREARM 20G RUNNING D5 1/2 NS @ 75 ML/HR TOLERATING WELL, NO S/S OF INFILTRATION AND INFLAMMATION. SAFETY MEASURES INITIATED: BILATERAL SIDE RAILS UP CALL LIGHT WITH REACH. BED ALARM ON ALL MEEDS MET. WILL CONTINUE TO MONITOR.
[2021-11-20 20:00] VITALS: BP 116/69
--- NOTE | 2021-11-20 20:40 | NUR ---
FIBER PRODUCT CUTTING MACHINE OPERATOR NOTES PT STARTED ON FEEDING GLUCERNA 1.2 @ 40ML/HR FOR 20HRS. CALLED PHARMACY X3 TIMES WAS TOLD THE MEDICATION WOULD BE BROUGHT BUT IT WAS NOT WILL F/U IN THE MORNING.
[2021-11-20] MEDS: risperiDONE 1 MG TABLET PO SCH (21:13)
[2021-11-20] MEDS ORDERED: DEXTROSE 50%-WATER 50 ML DISP.SYRIN IV PRN (21:30)
[2021-11-20] MEDS ORDERED: MAGNESIUM HYDROXIDE 30 ML UDC PO PRN (22:00)
[2021-11-20] MEDS: IV D5/0.45 NACL 1,000 ML IV PRN (23:58)
[2021-11-20] MEDS: BLOOD SUGAR DIAGNOSTIC 1 EACH STRIP IN SCH (23:58)
[2021-11-21] VITALS: BP 112/64
[2021-11-21 04:00] VITALS: BP 99/53
[2021-11-21] MEDS: BLOOD SUGAR DIAGNOSTIC 1 EACH STRIP IN SCH ×3 (05:29→18:36)
[2021-11-21] MEDS: ZOSYN IVPB 3.375 G in IV D5W 50ml IV SCH ×3 (05:29→19:33)
[2021-11-21] MEDS: INSULIN REGULAR, HUMAN 100 UNIT/ML 3 ML VIAL SQ PRN ×3 (05:31→14:12)
--- NOTE | 2021-11-21 06:27 | NUR ---
SPRINKLER REPAIR TECHNICIAN CLOSING NOTES PATIENT IS LYING COMFORTABLY IN BED. PATIENT IS A/O XO NON VERBAL. PATIENT IS IN NASAL CANNULA WITH 3L OXYGEN; O2 SAT 97%, AND NO S/S OF SOB AND DISTRESS CURRENTLY NOTED AT THIS MOMENT. IV ACCESS ON THE RIGHT FOREARM 20G & LEFT FOREARM 20G RUNNING D5 1/2 NS @ 75 ML/HR TOLERATING WELL, NO S/S OF INFILTRATION AND INFLAMMATION. SAFETY MEASURES INITIATED: BILATERAL RESTRAINT ON FOR SAFETY REMOVED Q2HRS FOR SAFETY. ALL NEEDS ATTENDED TO AND ANTICIPATED. BILATERAL SIDE RAILS UP CALL LIGHT WITH REACH. BED ALARM ON ALL MEEDS MET. WILL CONTINUE TO MONITOR.
[2021-11-21 06:43] LABS: BASOPHILS % (AUTO) 0.6 % (0.0-2.0); EOSINOPHILS % (AUTO) 10.9 % (0.0-6.0); HEMATOCRIT 28 % (33-45); HEMOGLOBIN 9.5 g/dL (11.5-14.8); LYMPHOCYTES # (AUTO) 0.9 K/uL (0.8-4.8); LYMPHOCYTES % (AUTO) 10.4 % (20.0-44.0); MEAN CORPUSCULAR HGB CONC 33 g/dl (31.0-36.0); MEAN CORPUSCULAR VOLUME 94 fL (82-100); MONOCYTES # (AUTO) 0.6 K/uL (0.1-1.30); MONOCYTES % (AUTO) 6.9 % (2.0-12.0); NEUTROPHILS # (AUTO) 6.1 K/uL (1.8-8.9); NEUTROPHILS % (AUTO) 71.2 % (43.0-81.0); PLATELET COUNT (AUTO) 289 K/uL (150-450); RED BLOOD CELL COUNT(AUTO) 3.01 MIL/uL (4.0-5.2); WHITE BLOOD COUNT (AUTO) 8.6 K/uL (4.3-11.0)
[2021-11-21 07:23] LABS: THYROID STIMULATING HORMONE 2.589 uIU/mL (0.358-3.74)
[2021-11-21 07:24] LABS: CREATININE 0.5 mg/dL (0.6-1.3); MAGNESIUM 2.3 mg/dL (1.8-2.4); PHOSPHORUS 2.8 mg/dL (2.5-4.9); POTASSIUM 3.4 mmol/L (3.5-5.1)
[2021-11-21 08:00] VITALS: BP 90/52
[2021-11-21] MEDS ORDERED: GLUCERNA 1.2 1,000 ML BOTTLE NG PRN (08:18)
[2021-11-21] MEDS: risperiDONE 1 MG TABLET PO SCH ×2 (08:23→21:39)
[2021-11-21] MEDS: DIVALPROEX SODIUM 500 MG TABLET.DR PO SCH ×3 (08:23→18:35)
[2021-11-21] MEDS: GABAPENTIN 100 MG CAPSULE PO SCH ×3 (08:23→18:35)
[2021-11-21] MEDS: ANASTROZOLE 1 MG TABLET PO SCH (08:23)
[2021-11-21] MEDS: PANTOPRAZOLE 40 MG TABLET.DR PO SCH (08:23)
[2021-11-21] MEDS: ZINC SULFATE 220 MG CAPSULE PO SCH (08:43)
[2021-11-21] MEDS: BRIMONIDINE TARTRATE OPHT SOLN 5 ML BOTTLE RIGHTEYE SCH ×2 (08:48→18:36)
[2021-11-21] MEDS: DORZOLAMIDE OPTH 2% 10 ML BOTTLE RIGHTEYE SCH ×2 (08:48→18:37)
[2021-11-21] MEDS: LATANOPROST EYE DROP 0.005% 2.5 ML BOTTLE EACHEYE SCH (08:48)
[2021-11-21] MEDS: TIMOLOL 0.25% SOL OPHTH 10 ML BOTTLE EACHEYE SCH ×2 (09:00→18:36)
[2021-11-21] MEDS ORDERED: POTASSIUM CHLORIDE 20 MEQ POWDER PACKET NG SCH (11:30)
[2021-11-21] MEDS: ENOXAPARIN SODIUM 30 MG/0.3 ML DISP.SYRIN SQ SCH (13:09)
[2021-11-21] MEDS: VANCOMYCIN 500 MG in IV D5W 100ml IV SCH (13:18)
[2021-11-21 16:00] VITALS: BP 129/58
[2021-11-21] MEDS: SIMVASTATIN 10 MG TABLET PO SCH (18:35)
[2021-11-21] MEDS: IV D5/0.45 NACL 1,000 ML IV PRN (19:33)
[2021-11-21 20:00] VITALS: BP 110/64
--- NOTE | 2021-11-21 22:21 | NUR ---
PICKLING MACHINE OPERATOR OPENING NOTES PATIENT IS LYING COMFORTABLY IN BED. PATIENT IS A/O XO NON VERBAL. PATIENT IS ON NASAL CANNULA WITH 2L OXYGEN; O2 SAT 97%, AND NO S/S OF SOB AND DISTRESS CURRENTLY NOTED AT THIS MOMENT. IV ACCESS ON THE RIGHT FOREARM 20G & LEFT FOREARM 20G RUNNING D5 1/2 NS @ 75 ML/HR TOLERATING WELL, NO S/S OF INFILTRATION AND INFLAMMATION. SAFETY MEASURES INITIATED: BILATERAL RESTRAINT ON FOR SAFETY REMOVED Q2HRS FOR SAFETY. ALL NEEDS ATTENDED TO AND ANTICIPATED. BILATERAL SIDE RAILS UP CALL LIGHT WITH REACH. BED ALARM ON ALL MEEDS MET. WILL CONTINUE TO MONITOR.
[2021-11-21 23:36] VITALS: BP 114/67
[2021-11-22] MEDS: BLOOD SUGAR DIAGNOSTIC 1 EACH STRIP IN SCH ×5 (00:55→23:31)
[2021-11-22] MEDS: ZOSYN IVPB 3.375 G in IV D5W 50ml IV SCH ×5 (00:56→23:16)
[2021-11-22] MEDS: VANCOMYCIN 500 MG in IV D5W 100ml IV SCH (01:36)
[2021-11-22 04:00] VITALS: BP 117/69
[2021-11-22] MEDS: INSULIN REGULAR, HUMAN 100 UNIT/ML 3 ML VIAL SQ PRN (05:34)
[2021-11-22 06:25] LABS: BASOPHILS % (AUTO) 0.5 % (0.0-2.0); EOSINOPHILS % (AUTO) 16.2 % (0.0-6.0); HEMATOCRIT 31 % (33-45); HEMOGLOBIN 10.4 g/dL (11.5-14.8); LYMPHOCYTES # (AUTO) 0.9 K/uL (0.8-4.8); MEAN CORPUSCULAR HGB CONC 34 g/dl (31.0-36.0); MEAN CORPUSCULAR VOLUME 94 fL (82-100); MONOCYTES # (AUTO) 0.5 K/uL (0.1-1.30); MONOCYTES % (AUTO) 7.9 % (2.0-12.0); NEUTROPHILS # (AUTO) 4.1 K/uL (1.8-8.9); NEUTROPHILS % (AUTO) 62.4 % (43.0-81.0); PLATELET COUNT (AUTO) 326 K/uL (150-450); RED BLOOD CELL COUNT(AUTO) 3.28 MIL/uL (4.0-5.2); WHITE BLOOD COUNT (AUTO) 6.6 K/uL (4.3-11.0)
--- NOTE | 2021-11-22 06:27 | NUR ---
MANAGER OF DISASTER RECOVERY CLOSING NOTES PATIENT IS LYING COMFORTABLY IN BED. PATIENT IS A/O XO NON VERBAL. PATIENT IS ON NASAL CANNULA WITH 2L OXYGEN; O2 SAT 97%, AND NO S/S OF SOB AND DISTRESS CURRENTLY NOTED AT THIS MOMENT. IV ACCESS ON THE RIGHT FOREARM 20G & LEFT FOREARM 20G RUNNING D5 1/2 NS @75 ML/HR TOLERATING WELL, NO S/S OF INFILTRATION AND INFLAMMATION. SAFETY MEASURES INITIATED: BILATERAL RESTRAINT ON FOR SAFETY REMOVED Q2HRS FOR SAFETY. ALL NEEDS ATTENDED TO AND ANTICIPATED. BILATERAL SIDE RAILS UP CALL LIGHT WITH REACH. BED ALARM ON ALL MEEDS MET. WILL ENDORSE CARE TO DYA SHIFT NURSE.
--- NOTE | 2021-11-22 07:30 | NUR ---
FITNESS ATTENDANT OPENING NOTES RECEIVED PATIENT ON BED AWAKE AND A/O X1. ON O2 AT 2LPM VIA NASAL CANNULA TOLERATING WELL. NO SOB NOTED. NOT IN DISTRESS. WITH IV ACCESS AT THE RIGHT FOREARM G20 WITH IVF D5 1/2NS AT 75ML/HR INFUSING WELL. ON TELE MONITOR CURRENTLY READING SINUS RHYTHM AT 67BPM. ON BILATERAL SOFT WRIST RESTRAINTS. SAFETY MEASURES IN PLACED. CALL LIGHT WITHIN REACH. BED ON LOWEST LOCKED POSITION, SIDE RAILS UP X2. WILL CONTINUE TO MONITOR.
[2021-11-22 08:00] VITALS: BP 122/71
[2021-11-22 08:00] LABS: ALBUMIN 1.8 g/dL (3.4-5.0); BILIRUBIN,TOTAL 0.2 mg/dL (0.2-1.0); CALCIUM, SERUM 7.7 mg/dL (8.5-10.1); CREATININE 0.4 mg/dL (0.6-1.3); MAGNESIUM 2.2 mg/dL (1.8-2.4); PHOSPHORUS 2.7 mg/dL (2.5-4.9); POTASSIUM 3.3 mmol/L (3.5-5.1); TOTAL PROTEIN, SERUM 5.6 g/dL (6.4-8.2)
[2021-11-22] MEDS: ANASTROZOLE 1 MG TABLET PO SCH (09:24)
[2021-11-22] MEDS: GABAPENTIN 100 MG CAPSULE PO SCH ×3 (09:24→17:11)
[2021-11-22] MEDS: PANTOPRAZOLE 40 MG TABLET.DR PO SCH (09:24)
[2021-11-22] MEDS: DIVALPROEX SODIUM 500 MG TABLET.DR PO SCH ×3 (09:24→17:11)
[2021-11-22] MEDS: ZINC SULFATE 220 MG CAPSULE PO SCH (09:24)
[2021-11-22] MEDS: risperiDONE 1 MG TABLET PO SCH ×2 (09:25→22:45)
[2021-11-22] MEDS: LATANOPROST EYE DROP 0.005% 2.5 ML BOTTLE EACHEYE SCH (09:45)
[2021-11-22] MEDS: BRIMONIDINE TARTRATE OPHT SOLN 5 ML BOTTLE RIGHTEYE SCH ×2 (09:45→17:12)
[2021-11-22] MEDS: DORZOLAMIDE OPTH 2% 10 ML BOTTLE RIGHTEYE SCH ×2 (09:45→17:12)
[2021-11-22] MEDS: TIMOLOL 0.25% SOL OPHTH 10 ML BOTTLE EACHEYE SCH ×2 (09:45→17:12)
[2021-11-22 12:00] VITALS: BP 122/77
[2021-11-22] MEDS: MUPIROCIN OINT 2% 22 GM TUBE NS SCH ×2 (13:27→21:26)
[2021-11-22] MEDS: IV D5/0.45 NACL 1,000 ML IV PRN (13:28)
[2021-11-22] MEDS: ENOXAPARIN SODIUM 30 MG/0.3 ML DISP.SYRIN SQ SCH (13:29)
[2021-11-22] MEDS: VANCOMYCIN 0.75 GM in IV D5W 250 ML IV SCH (13:53)
--- NOTE | 2021-11-22 14:30 | NUR ---
RN NOTE G-TUBE FEEDING OF GLUCERNA 1.2 AT 40ML/HR HAS TO RUN FOR 20HRS/DAY. TURNED OFF FEEDING AND WILL RESUME AFTER 4 HOURS.
[2021-11-22] MEDS ORDERED: POTASSIUM CHLORIDE 20 MEQ POWDER PACKET NG SCH (15:00)
[2021-11-22 16:00] VITALS: BP 147/88
[2021-11-22] MEDS: SIMVASTATIN 10 MG TABLET PO SCH (17:11)
--- NOTE | 2021-11-22 18:29 | NUR ---
DIRECTOR SURFACE TRANSPORTATION CLOSING NOTES PATIENT ON BED AWAKE AND A/O X1. ON O2 AT 2LPM VIA NASAL CANNULA TOLERATING WELL. NO SOB NOTED. NOT IN DISTRESS. WITH IV ACCESS AT THE RIGHT FOREARM G20 WITH IVF D5 1/2NS AT 75ML/HR INFUSING WELL. ON TELE MONITOR CURRENTLY READING SINUS RHYTHM AT 85BPM. ON BILATERAL SOFT WRIST RESTRAINTS. DUE MEDS GIVEN. SAFETY MEASURES IN PLACED. CALL LIGHT WITHIN REACH. BED ON LOWEST LOCKED POSITION, SIDE RAILS UP X2. WILL ENDORSE TO NEXT SHIFT FOR VAN.
--- NOTE | 2021-11-22 19:50 | NUR ---
COMPLIANCE REVIEW OFFICER OPENING NOTE PATIENT SLEEPING IN BED, PT A/O X O, NON-VERBAL. PATIENT STABLE ON 2 LPM OF OXYGEN VIA NASAL CANNULA, NO S/S OF DISTRESS OR SOB NOTED, BREATHING EVEN AND UNLABORED. NO S/S OF DISCOMFORT OR PAIN. GT FEEDING RUNNING GLUCERNA 1.2 @ 40 ML/HR X 20 HRS, PER DAYSHIFT NURSE TURNED OFF AT 1430 AND BACK ON AT 1830 TODAY. BILATERAL SOFT WRIST RESTRAINTS IN PLACE, REMOVED TO CHECK CIRCULATION. IV ACCESS ON LEFT FOREARM #20G INTACT AND SALINE LOCKED, RIGHT FOREARM #20G INTACT AND INFUSING D5 1/2 NS @ 75 ML/HR. SAFETY MEASURES IN PLACE: CALL LIGHT WITHIN REACH, SIDE RAILS UP X 3, BED LOCKED IN LOWEST POSITION, HOB ELEVATED 40 DEGREES, BED ALARM ON. WILL CONTINUE TO MONITOR PATIENT
[2021-11-22 20:00] VITALS: BP 109/73
[2021-11-23] VITALS: BP 114/61
[2021-11-23] MEDS: VANCOMYCIN 0.75 GM in IV D5W 250 ML IV SCH ×2 (02:09→13:07)
[2021-11-23 04:00] VITALS: BP 110/65
[2021-11-23] MEDS: ZOSYN IVPB 3.375 G in IV D5W 50ml IV SCH ×3 (06:29→18:20)
[2021-11-23] MEDS: BLOOD SUGAR DIAGNOSTIC 1 EACH STRIP IN SCH ×3 (06:29→18:08)
[2021-11-23 06:31] LABS: BASOPHILS % (AUTO) 0.4 % (0.0-2.0); EOSINOPHILS % (AUTO) 16.5 % (0.0-6.0); HEMATOCRIT 28 % (33-45); HEMOGLOBIN 9.7 g/dL (11.5-14.8); LYMPHOCYTES # (AUTO) 0.6 K/uL (0.8-4.8); LYMPHOCYTES % (AUTO) 13.1 % (20.0-44.0); MEAN CORPUSCULAR HGB CONC 34 g/dl (31.0-36.0); MEAN CORPUSCULAR VOLUME 93 fL (82-100); MONOCYTES # (AUTO) 0.3 K/uL (0.1-1.30); MONOCYTES % (AUTO) 6.5 % (2.0-12.0); NEUTROPHILS # (AUTO) 2.9 K/uL (1.8-8.9); NEUTROPHILS % (AUTO) 63.5 % (43.0-81.0); PLATELET COUNT (AUTO) 363 K/uL (150-450); RED BLOOD CELL COUNT(AUTO) 3.05 MIL/uL (4.0-5.2); WHITE BLOOD COUNT (AUTO) 4.6 K/uL (4.3-11.0)
[2021-11-23 06:55] LABS: ALBUMIN 1.8 g/dL (3.4-5.0); BILIRUBIN,TOTAL 0.2 mg/dL (0.2-1.0); CALCIUM, SERUM 7.8 mg/dL (8.5-10.1); CREATININE 0.4 mg/dL (0.6-1.3); MAGNESIUM 2.2 mg/dL (1.8-2.4); POTASSIUM 3.1 mmol/L (3.5-5.1); TOTAL PROTEIN, SERUM 5.5 g/dL (6.4-8.2)
--- NOTE | 2021-11-23 07:23 | NUR ---
DRILL GRINDER OPENING NOTE PATIENT SLEEPING IN BED, PT A/O X O, NON-VERBAL. PATIENT STABLE ON 2 LPM OF OXYGEN VIA NASAL CANNULA, NO S/S OF DISTRESS OR SOB NOTED, BREATHING EVEN AND UNLABORED. NO S/S OF DISCOMFORT OR PAIN. GT FEEDING RUNNING GLUCERNA 1.2 @ 40 ML/HR X [address] IV ACCESS ON LEFT WRIST #22G INTACT AND INFUSING D5 1/2 NS @ 75 ML/HR. PATIENT ON TELE MONITOR READING SINUS RHYTHM, HR: 61. MEDICATIONS GIVEN ORDERED, PT NEEDS MET THROUGHOUT SHIFT. SAFETY MEASURES IN PLACE: CALL LIGHT WITHIN REACH, SIDE RAILS UP X 3, BED LOCKED IN LOWEST POSITION, HOB ELEVATED 40 DEGREES, BED ALARM ON. WILL ENDORSE TO DAY SHIFT NURSE FOR CONTINUITY OF CARE
--- NOTE | 2021-11-23 07:30 | NUR ---
PT RECEIVED RESTING COMFORTABLY IN BED. NO S/S OR C/O PAIN OR DISTRESS NOTED. SIDE RAILS UP X2, CALL LIGHT LEFT WITHIN REACH. WILL CONTINUE PLAN OF CARE.
[2021-11-23 08:00] VITALS: BP 112/69
[2021-11-23] MEDS: BRIMONIDINE TARTRATE OPHT SOLN 5 ML BOTTLE RIGHTEYE SCH ×2 (09:00→18:08)
[2021-11-23] MEDS: LATANOPROST EYE DROP 0.005% 2.5 ML BOTTLE EACHEYE SCH (09:00)
[2021-11-23] MEDS: DORZOLAMIDE OPTH 2% 10 ML BOTTLE RIGHTEYE SCH ×2 (09:00→18:08)
[2021-11-23] MEDS: TIMOLOL 0.25% SOL OPHTH 10 ML BOTTLE EACHEYE SCH ×2 (09:00→18:07)
[2021-11-23] MEDS: PANTOPRAZOLE 40 MG TABLET.DR PO SCH (09:17)
[2021-11-23] MEDS: GABAPENTIN 100 MG CAPSULE PO SCH ×3 (09:17→18:07)
[2021-11-23] MEDS: ZINC SULFATE 220 MG CAPSULE PO SCH (09:17)
[2021-11-23] MEDS: DIVALPROEX SODIUM 500 MG TABLET.DR PO SCH ×3 (09:17→18:07)
[2021-11-23] MEDS: ANASTROZOLE 1 MG TABLET PO SCH (09:17)
[2021-11-23] MEDS: risperiDONE 1 MG TABLET PO SCH ×2 (09:20→21:23)
[2021-11-23] MEDS: MUPIROCIN OINT 2% 22 GM TUBE NS SCH ×2 (09:37→21:24)
[2021-11-23 10:06] VITALS: BP 112/69
[2021-11-23] MEDS ORDERED: POTASSIUM CHLORIDE 20 MEQ POWDER PACKET NG SCH (11:00)
[2021-11-23] MEDS: ENOXAPARIN SODIUM 30 MG/0.3 ML DISP.SYRIN SQ SCH (12:03)
[2021-11-23 16:00] VITALS: BP 130/76
[2021-11-23] MEDS: SIMVASTATIN 10 MG TABLET PO SCH (18:20)
--- NOTE | 2021-11-23 18:59 | NUR ---
PT RECEIVED RESTING COMFORTABLY IN BED. NO S/S OR C/O PAIN OR DISTRESS NOTED. SIDE RAILS UP X2, CALL LIGHT LEFT WITHIN REACH. WILL CONTINUE PLAN OF CARE. Addendum: 11/23/21 at 1901 by VALENTÍN CHU RN WRONG TIME
--- NOTE | 2021-11-23 19:01 | NUR ---
CHANGE OF SHIFT REPORT. PT RESTING COMFORTABLY IN BED. NO S/S OR C/O PAIN OR DISTRESS NOTED. SIDE RAILS UP X2, CALL LIGHT LEFT WITHIN REACH. PT KEPT CLEAN, DRY, AND COMFORTABLE. NO SIGNIFICANT CHANGES SINCE PREVIOUS SHIFT. WILL GIVE REPORT TO YONNY GORDILLO.
[2021-11-24] MEDS: BLOOD SUGAR DIAGNOSTIC 1 EACH STRIP IN SCH ×3 (00:08→11:57)
[2021-11-24] MEDS: ZOSYN IVPB 3.375 G in IV D5W 50ml IV SCH ×3 (00:09→12:49)
[2021-11-24] MEDS: VANCOMYCIN 0.75 GM in IV D5W 250 ML IV SCH (02:44)
[2021-11-24] MEDS: IV D5/0.45 NACL 1,000 ML IV PRN (05:57)
[2021-11-24 06:49] LABS: BASOPHILS % (AUTO) 0.6 % (0.0-2.0); EOSINOPHILS % (AUTO) 15.5 % (0.0-6.0); HEMATOCRIT 28 % (33-45); HEMOGLOBIN 9.6 g/dL (11.5-14.8); LYMPHOCYTES # (AUTO) 0.8 K/uL (0.8-4.8); LYMPHOCYTES % (AUTO) 13.2 % (20.0-44.0); MEAN CORPUSCULAR HGB CONC 34 g/dl (31.0-36.0); MEAN CORPUSCULAR VOLUME 94 fL (82-100); MONOCYTES # (AUTO) 0.3 K/uL (0.1-1.30); NEUTROPHILS # (AUTO) 3.8 K/uL (1.8-8.9); NEUTROPHILS % (AUTO) 65.7 % (43.0-81.0); PLATELET COUNT (AUTO) 349 K/uL (150-450); RED BLOOD CELL COUNT(AUTO) 2.99 MIL/uL (4.0-5.2); WHITE BLOOD COUNT (AUTO) 5.8 K/uL (4.3-11.0)
--- NOTE | 2021-11-24 07:40 | NUR ---
FINANCIAL AID DIRECTOR CLOSING NOTE PATIENT SLEEPING IN BED, PT A/O X O, NON-VERBAL. PATIENT STABLE ON 2 LPM OF OXYGEN VIA NASAL CANNULA, NO S/S OF DISTRESS OR SOB NOTED, BREATHING EVEN AND UNLABORED. NO S/S OF DISCOMFORT OR PAIN. GT FEEDING RUNNING GLUCERNA 1.2 @ 40 ML/HR X [address] IV ACCESS ON LEFT WRIST #22G INTACT AND INFUSING D5 1/2 NS @ 75 ML/HR. MEDICATIONS GIVEN ORDERED, PT NEEDS MET THROUGHOUT SHIFT, PATIENT TURNED Q2H. NO SIGNIFICANT CHANGES THROUGHOUT SHIFT. SAFETY MEASURES IN PLACE: CALL LIGHT WITHIN REACH, SIDE RAILS UP X 3, BED LOCKED IN LOWEST POSITION, HOB ELEVATED 40 DEGREES, BED ALARM ON. ENDORSED TO DAY SHIFT NURSE FOR CONTINUITY OF CARE Addendum: 11/24/21 at 0741 by OCTAVIA CA RN MS RN CLOSING NOTE
[2021-11-24] MEDS: LATANOPROST EYE DROP 0.005% 2.5 ML BOTTLE EACHEYE SCH (07:55)
[2021-11-24] MEDS: TIMOLOL 0.25% SOL OPHTH 10 ML BOTTLE EACHEYE SCH (07:55)
[2021-11-24] MEDS: BRIMONIDINE TARTRATE OPHT SOLN 5 ML BOTTLE RIGHTEYE SCH (07:59)
[2021-11-24] MEDS: DORZOLAMIDE OPTH 2% 10 ML BOTTLE RIGHTEYE SCH (07:59)
[2021-11-24 08:00] VITALS: BP 120/69
--- NOTE | 2021-11-24 08:00 | NUR ---
RECEIVED PT. IN AM NON-VERBAL,CALM,VS STABLE,FOLLOWS OCC. WITH EYES.SKIN WARM AND DRY.T.FEED. INFUSING WELL IV.MITTEN RESTRAINTS ON SIDE RAILS UP.
[2021-11-24 08:25] LABS: CREATININE 0.5 mg/dL (0.6-1.3); MAGNESIUM 2.3 mg/dL (1.8-2.4); PHOSPHORUS 2.7 mg/dL (2.5-4.9); POTASSIUM 3.7 mmol/L (3.5-5.1)
[2021-11-24] MEDS: ANASTROZOLE 1 MG TABLET PO SCH (08:38)
[2021-11-24] MEDS: DIVALPROEX SODIUM 500 MG TABLET.DR PO SCH ×2 (08:38→12:45)
[2021-11-24] MEDS: ZINC SULFATE 220 MG CAPSULE PO SCH (08:38)
[2021-11-24] MEDS: PANTOPRAZOLE 40 MG TABLET.DR PO SCH (08:39)
[2021-11-24] MEDS: GABAPENTIN 100 MG CAPSULE PO SCH ×2 (08:39→12:46)
[2021-11-24] MEDS: risperiDONE 1 MG TABLET PO SCH (08:39)
[2021-11-24] MEDS: MUPIROCIN OINT 2% 22 GM TUBE NS SCH (08:40)
[2021-11-24] MEDS ORDERED: PIPE3.379 IV (09:17)
[2021-11-24] MEDS ORDERED: LEVO500T90 PO (09:24)
--- NOTE | 2021-11-24 12:30 | NUR ---
REPORT CALLED TO JONO AT TRANSFERRING FACILITY.
[2021-11-24] MEDS: ENOXAPARIN SODIUM 30 MG/0.3 ML DISP.SYRIN SQ SCH (12:47)
--- NOTE | 2021-11-24 13:47 | NUR ---
FIGHTING NURSE WHEN ATTEMPTING TO DO DC PHOTOS.
--- NOTE | 2021-11-24 14:05 | NUR ---
AMBULANCE HERE. REPORT TO DRIVERS.TAKEN VIA AMBULANCE TO [facility].CASE MGMT. TO NOTIFY FAMILY OF TRANSFER BACK.ALL PAPERS SIGNED.
[2021-12-01] MEDS ORDERED: AMOX-430 PO (09:15)
[2021-12-01] MEDS ORDERED: DOXY-326 PO (09:15)
== END 2021-11-24 13:30 | DRG 871 ==
LOC: ER 09:08 → TRANSITION 10:33 → TELE 14:49 → MED 11-23 14:35
DX: A41.9 Sepsis, unspecified organism (principal); E43 Unspecified severe protein-calorie malnutrition; J69.0 Pneumonitis due to inhalation of food and vomit; R53.2 Functional quadriplegia; N39.0 Urinary tract infection, site not specified; Z68.1 Body mass index [BMI] 19.9 or less, adult; R64 Cachexia; D68.59 Other primary thrombophilia; G93.49 Other encephalopathy; Z85.3 Personal history of malignant neoplasm of breast; Z90.12 Acquired absence of left breast and nipple; R13.10 Dysphagia, unspecified; Z93.1 Gastrostomy status; F25.1 Schizoaffective disorder, depressive type; E78.5 Hyperlipidemia, unspecified; E88.09 Other disorders of plasma-protein metabolism, not elsewhere classified; G30.9 Alzheimer's disease, unspecified; F02.80 Dementia in other diseases classified elsewhere, unspecified severity, without behavioral disturbance, psychotic disturbance, mood disturbance, and anxiety; Z74.09 Other reduced mobility; Z66 Do not resuscitate; D64.9 Anemia, unspecified; E11.9 Type 2 diabetes mellitus without complications; Z20.822 Contact with and (suspected) exposure to COVID-19; F41.9 Anxiety disorder, unspecified
CPT/HCPCS: 36415; 71045-TC; 80048-TC; 80053-TC; 80061-TC; 80076-TC; 80202-TC; 81001; 82962-TC; 83605-TC; 83735-TC; 83880; 84100-TC; 84443-TC; 84484-TC; 85025-TC; 85730-TC; 87040-TC; 87081-TC; 87086-TC; 94799-TC; C9803; G0378; J1650; J1815; J2543; J3370; J3490; J7030; J7060

== ENCOUNTER 2021-11-27 10:37 | Inpatient (IN) | payer MEDICARE, OTHER ==
[~2021-11-27] VITALS: Ht 154.9 cm; Wt 37.6 kg
[~2021-11-27 10:37] MED LIST changes: +ASCO500C17 GT; +BENA20TA9 GT; +BRIM5DRO3 RIGHT EAR; +CALC1POW43 GT; +DOCU-141 GT; +ENOX40DI SQ; +LEVO500T90 PO; +MULT-447 GT; +NUT.237L30 GT; +VALP250S22 GT; +ZINC220C6 PO
--- NOTE | 2021-11-27 10:46 | NUR ---
DEVIN 85 FROM [facility], LOW BP AT 70/40, NS 500ML GIVEN EN ROUTE, ON NRB 98% O2 SATURATION UPON ARRIVAL. ON ATB FOR PNA. TO ER BED 6, HOOKED TO RESEARCH INSTRUMENTATION TECHNICIAN, NOTED WITH RH 18G IV PERIPHERAL LINE, PATENT. CHANGEDTO HOSP GOWN, AWAITING MD SHULTZ
--- NOTE | 2021-11-27 10:47 | NUR ---
DR PINO AT BEDSIDE
[2021-11-27] MEDS ORDERED: VANCOMYCIN 1 GM in IV D5W 250 ML IV ONE (11:00)
[2021-11-27] MEDS ORDERED: CEFEPIME 1 GM in IV D5W 50 ML IV ONE (11:00)
[2021-11-27] MEDS ORDERED: ACETAMINOPHEN 650 MG/SUPP.RECT RC ONE ×2 (11:00)
[2021-11-27] MEDS ORDERED: IV NS 0.9% 1,000 ML BAG IV ONE (11:00)
--- NOTE | 2021-11-27 11:26 | NUR ---
COVID SWAB DONE AND SENT TO LAB
[2021-11-27 11:45] LABS: BASOPHILS % (AUTO) 0.2 % (0.0-2.0); EOSINOPHILS % (AUTO) 0.1 % (0.0-6.0); HEMATOCRIT 23 % (33-45); HEMOGLOBIN 7.6 g/dL (11.5-14.8); LYMPHOCYTES # (AUTO) 0.7 K/uL (0.8-4.8); LYMPHOCYTES % (AUTO) 4.8 % (20.0-44.0); MEAN CORPUSCULAR HGB CONC 33 g/dl (31.0-36.0); MEAN CORPUSCULAR VOLUME 95 fL (82-100); MONOCYTES # (AUTO) 0.8 K/uL (0.1-1.30); MONOCYTES % (AUTO) 5.7 % (2.0-12.0); NEUTROPHILS # (AUTO) 13.4 K/uL (1.8-8.9); NEUTROPHILS % (AUTO) 89.2 % (43.0-81.0); PLATELET COUNT (AUTO) 217 K/uL (150-450); RED BLOOD CELL COUNT(AUTO) 2.43 MIL/uL (4.0-5.2)
[2021-11-27 12:00] LABS: CALCIUM, SERUM 7.4 mg/dL (8.5-10.1); CARBON DIOXIDE 29 mmol/L (21-32); CHLORIDE 113 mmol/L (98-107); CREATININE 0.6 mg/dL (0.6-1.3); GLUCOSE 106 mg/dL (74-106); SODIUM SERUM 147 mmol/L (136-145); UREA NITROGEN, BLOOD 22 mg/dL (7-18)
[2021-11-27 12:06] LABS: ALANINE AMINOTRANSFERASE < 6 U/L (12-78); ALBUMIN 1.6 g/dL (3.4-5.0); ALKALINE PHOSPHATASE 61 U/L (46-116); ASPARTATE AMINOTRANSFERASE 11 U/L (15-37); BILIRUBIN,DIRECT 0.1 mg/dL (0.0-0.2); BILIRUBIN,TOTAL 0.3 mg/dL (0.2-1.0); TOTAL PROTEIN, SERUM 5.1 g/dL (6.4-8.2)
--- NOTE | 2021-11-27 12:35 | NUR ---
URINE COLLECTED AND SENT TO LAB
--- NOTE | 2021-11-27 12:42 | NUR ---
MD TO MD IN PROGRESS.
[2021-11-27 12:55] LABS: BILIRUBIN,URINE NEGATIVE (NEGATIVE); COLOR,URINE YELLOW (YELLOW); LEUKOCYTE ESTERASE ,URINE NEGATIVE (NEGATIVE); NITRITE, URINE NEGATIVE (NEGATIVE); PROTEIN,URINE TRACE mg/dl (NEGATIVE); UGLUCOSE NEGATIVE (NEGATIVE); UROBILINOGEN,URINE 0.2 EU/dL (0.2)
[2021-11-27 13:14] LABS: BACTERIA,URINE 2+ /HPF (None Seen)
--- NOTE | 2021-11-27 13:45 | NUR ---
DUY NOTES RECEIVED PATIENT FROM ER ENDORSED BY DUY FELIZ VIA TARA. PATIENT IS AWAKE AND A/O X0, NON-VERBAL. WITH IV ACCESS AT RIGHT HAND G18 PATENT AND INTACT. ON TELE MONITOR CURRENTLY READING SR AT 78BPM. WITH G-TUBE NOTED ON THE ABDOMEN PATENT WITH CLEAN AND DRY DRESSING. SKIN ASSESSMENT DONE WITH PHOTOS TAKEN. SAFETY MEASURES DONE. CALL LIGHT WITHIN REACH. BED ON LOWEST LOCKED POSITION, SIDE RAILS UP X2. WILL CONTINUE TO MONITOR. Addendum: 11/27/21 at 2002 by ANAHI HENDERSON RN ERROR
--- NOTE | 2021-11-27 15:00 | NUR ---
BED 947-1
--- NOTE | 2021-11-27 15:12 | NUR ---
REPORT GIVEN TO KATIE GORDILLO OF TELE
[2021-11-27 15:43] VITALS: BP 93/65
--- NOTE | 2021-11-27 15:45 | NUR ---
RN NOTES RECEIVED PATIENT FROM ER ENDORSED BY DUY FELIZ VIA TARA. PATIENT IS AWAKE AND A/O X0, NON-VERBAL. WITH IV ACCESS AT RIGHT HAND G18 PATENT AND INTACT. ON TELE MONITOR CURRENTLY READING SR AT 78BPM. WITH G-TUBE NOTED ON THE ABDOMEN PATENT WITH CLEAN AND DRY DRESSING. SKIN ASSESSMENT DONE WITH PHOTOS TAKEN. SAFETY MEASURES DONE. CALL LIGHT WITHIN REACH. BED ON LOWEST LOCKED POSITION, SIDE RAILS UP X2. WILL CONTINUE TO MONITOR.
[2021-11-27] MEDS ORDERED: ACETAMINOPHEN 325 MG TABLET PO PRN (16:00)
[2021-11-27] MEDS ORDERED: MAGNESIUM HYDROXIDE 30 ML UDC PO PRN (16:00)
[2021-11-27] MEDS ORDERED: MAG HYDROX/AL HYDROX/SIMETH 30 ML UDC PO PRN (16:00)
[2021-11-27] MEDS ORDERED: ZOLPIDEM TARTRATE 5 MG TABLET PO PRN (16:00)
[2021-11-27] MEDS ORDERED: IV 1/2NS 1000 ML 1,000 ML IV PRN (16:00)
[2021-11-27] MEDS ORDERED: ONDANSETRON HCL/PF 4 MG/2 ML VIAL IVP PRN (16:00)
[2021-11-27] MEDS ORDERED: Z GUARD REMEDY 4 OZ OINT TP PRN (16:00)
[2021-11-27] MEDS ORDERED: POTASSIUM CHLORIDE 20 MEQ TAB.PRT.SR PO ONE ×2 (16:00→18:00)
[2021-11-27] MEDS ORDERED: GLUCERNA 1.2 1,000 ML BOTTLE NG SCH (18:30)
--- NOTE | 2021-11-27 19:30 | NUR ---
RN NOTES PATIENT RESTING ON BED AND A/O X0, NON-VERBAL. ON O2 AT 5LPM VIA NASAL CANNULA SATURATING WELL. NO SOB NOTED. NOT IN DISTRESS. WITH IV ACCESS AT THE RIGHT HAND G18 WITH 1/2NS AT 75ML/HR INFUSING WELL. ON TELE MONITOR CURRENTLY READING SR AT 76BPM. WITH G-TUBE NOTED ON THE ABDOMEN PATENT WITH CLEAN AND DRY DRESSING. DUE MEDS GIVEN. SAFETY MEASURES IN PLACED. CALL LIGHT WITHIN REACH. BED ON LOWEST LOCKED POSITION, SIDE RAILS UP X2. WILL ENDORSE TO NEXT SHIFT FOR VAN.
[2021-11-27 20:00] VITALS: BP 99/60
[2021-11-27] MEDS: CEFEPIME 2 GM in IV D5W 100 ML IV SCH (20:48)
[2021-11-27] MEDS: GLUCERNA 1.2 1,000 ML BOTTLE NG SCH (20:49)
[2021-11-27] MEDS: VANCOMYCIN 0.75 GM in IV D5W 250 ML IV SCH (22:59)
[2021-11-28] VITALS: BP 85/52
--- NOTE | 2021-11-28 00:30 | NUR ---
RN NOTES: PATIENT WAS NOTED WITH LOW BP AT 85/52 MANUAL CHECK IN BOTH ARMS AND LEG STILL LOW BP AT INITIAL BP WAS 99/[address] LOBO AND ORDER TO GIVE 0.9NSS 500ML BOLUS NOTED AND CARRY OUT. WILL CONTINUE TO MONITOR.
[2021-11-28] MEDS ORDERED: IV NS 0.9% 500 ML IV ONE (01:30)
[2021-11-28 04:00] VITALS: BP 81/49
--- NOTE | 2021-11-28 05:00 | NUR ---
RN NOTES: PATIENT WAS NOTED WITH LOW BLOOD PRESSURE AT 87/49 HR- 58 AFTER A BOLUS OF 0.9NSS 500ML NOTIFY RESTRICTIVE PREPARATION OPERATOR YAMIL AND ORDER ANOTHER BOLUS OF [id number] NOTED AND CARRY OUT, WILL CONTINUE TO MONITOR.
[2021-11-28] MEDS ORDERED: IV NS 0.9% 250 ML IV ONE (06:00)
--- NOTE | 2021-11-28 06:28 | NUR ---
CONTENT STRATEGY LEAD CLOSING NOTES: PATIENT SLEEP IN BED COMFORTABLY, BED IN LOW POSITION, CALL LIGHTS WITHIN REACH, NO COMPLAIN OF PAIN AND DISCOMFORT AT THIS TIME, ON O2 INHALATION AT 5LPM SATURATING AT 94%, PATIENT ON NPO WITH G TUBE FEEDING OF GLUCERNA 1.2@40ML/HR INFUSING WELL, WITH IV LINE AT RT HAND WITH ONGOING [id number] BOLUS ONE TIME FOR LOW BLOOD PRESSURE, PATIENT KEPT CLEAN AND DRY, REPOSITION, ALL NEEDS MET ENDORSE TO INCOMING SHIFT.
[2021-11-28 07:02] LABS: BASOPHILS % (AUTO) 0.3 % (0.0-2.0); EOSINOPHILS % (AUTO) 5.4 % (0.0-6.0); HEMATOCRIT 27 % (33-45); LYMPHOCYTES # (AUTO) 0.8 K/uL (0.8-4.8); LYMPHOCYTES % (AUTO) 6.1 % (20.0-44.0); MEAN CORPUSCULAR HGB CONC 33 g/dl (31.0-36.0); MEAN CORPUSCULAR VOLUME 96 fL (82-100); MONOCYTES # (AUTO) 0.6 K/uL (0.1-1.30); MONOCYTES % (AUTO) 4.2 % (2.0-12.0); NEUTROPHILS # (AUTO) 11.6 K/uL (1.8-8.9); PLATELET COUNT (AUTO) 236 K/uL (150-450); RED BLOOD CELL COUNT(AUTO) 2.84 MIL/uL (4.0-5.2); WHITE BLOOD COUNT (AUTO) 13.9 K/uL (4.3-11.0)
[2021-11-28 07:15] LABS: CALCIUM, SERUM 8.2 mg/dL (8.5-10.1); CREATININE 0.4 mg/dL (0.6-1.3); MAGNESIUM 2.1 mg/dL (1.8-2.4); PHOSPHORUS 2.3 mg/dL (2.5-4.9); POTASSIUM 3.8 mmol/L (3.5-5.1)
--- NOTE | 2021-11-28 07:20 | NUR ---
RN OPENING NOTES RECEIVED PATIENT AWAKE IN BED, NON-VERBAL, OPENS EYES. ON O2 INHALATION AT 5LPM VIA N/C, NO SOB NOTED, BREATHING EVEN AND UNLABORED. WITH G-TUBE INTACT AND PATENT, POSITIVE PLACEMENT WITH G TUBE FEEDING OF GLUCERNA 1.2 @40ML/HR RUNNING, TOLERATING WELL. WITH IV LINE ON RIGHT HAND WITH ONGOING NSS 250CC BOLUS FOR LOW BLOOD PRESSURE. SAFETY MEASURE IN PLACE. BED IN LOWEST AND LOCKED POSITION, SIDE RAILS UP X2, CALL LIGHT PLACED WITHIN EASY REACH. WILL CONTINUE TO MONITOR PATIENT.
[2021-11-28] MEDS: CEFEPIME 2 GM in IV D5W 100 ML IV SCH ×2 (08:11→20:13)
[2021-11-28] MEDS: ENOXAPARIN SODIUM 40 MG/0.4 ML DISP.SYRIN SQ SCH (11:08)
[2021-11-28] MEDS: VANCOMYCIN 0.75 GM in IV D5W 250 ML IV SCH ×2 (11:08→23:32)
[2021-11-28] MEDS ORDERED: NEUTRA PHOS 1 POWD.PACKET GT ONE (12:30)
[2021-11-28] MEDS: IV 1/2NS 1000 ML 1,000 ML IV PRN (18:26)
--- NOTE | 2021-11-28 18:55 | NUR ---
RN CLOSING NOTES PATIENT RESTING IN BED, NON-VERBAL, OPENS EYES. ON O2 INHALATION AT 5LPM VIA N/C, NO SOB NOTED, BREATHING EVEN AND UNLABORED. WITH G-TUBE INTACT AND PATENT, POSITIVE PLACEMENT WITH G TUBE FEEDING OF GLUCERNA 1.2 @40ML/HR RUNNING, TOLERATING WELL. WITH IV LINE ON RIGHT WRIST #18G, INTACT AND PATENT WITH 1/2 NS @100 ML/HR RUNNING. SAFETY MEASURE IN PLACE. BED IN LOWEST AND LOCKED POSITION, SIDE RAILS UP X2, CALL LIGHT PLACED WITHIN EASY REACH. WILL ENDORSE TO NEXT SHIFT FOR CONTINUITY OF CARE.
[2021-11-28 19:19] LABS: IRON, SERUM 14 ug/dl (50-175); TOTAL IRON BINDING CAPACITY 87 ug/dl (250-450)
--- NOTE | 2021-11-28 19:40 | NUR ---
MS RN OPENING NOTE RECEIVED PATIENT IN BED; AWAKE, ALERT AND ORIENTED X0, NON-VERBAL. ON OXYGEN INHALATION @ 5 LPM VIA NASAL CANNULA; TOLERATING WELL. WITH IV ACCESS ON RIGHT WRIST; PATENT AND INTACT INFUSING WITH 0.45% NS REGULATED @ 100ML/HR; FLUSHES WELL. ON GTUBE FEEDING GLUCERNA 1.2 REGULATED @ 40 ML/HR; PATENT, INTACT AND FLUSHES WELL. NEEDS ANTICIPATED AND ATTENDED. SAFETY AND ASPIRATION PRECAUTION IMPLEMENTED: HEAD OF BED ELEVATED, CALL LIGHT AND TABLE WITHIN REACH, SIDE RAILS UP X2, BED IN LOWEST LOCKED POSITION. WILL CONTINUE TO MONITOR
[2021-11-28 20:00] VITALS: BP 108/53
[2021-11-29] MEDS: GLUCERNA 1.2 1,000 ML BOTTLE NG SCH (05:21)
[2021-11-29] MEDS: IV 1/2NS 1000 ML 1,000 ML IV PRN ×2 (06:49→21:30)
--- NOTE | 2021-11-29 07:00 | NUR ---
MS RN CLOSING NOTE PATIENT IN BED; AWAKE, ALERT AND ORIENTED X0, NON-VERBAL. ON OXYGEN INHALATION @ 5 LPM VIA NASAL CANNULA; TOLERATING WELL. WITH IV ACCESS ON RIGHT WRIST; PATENT AND INTACT INFUSING WITH 0.45% NS REGULATED @ 100ML/HR; FLUSHES WELL. ON GTUBE FEEDING GLUCERNA 1.2 REGULATED @ 40 ML/HR; PATENT, INTACT AND FLUSHES WELL. ALL DUE MEDS GIVEN. ALL NEEDS ATTENDED. SAFETY AND ASPIRATION PRECAUTION IMPLEMENTED: HEAD OF BED ELEVATED, CALL LIGHT AND TABLE WITHIN REACH, SIDE RAILS UP X2, BED IN LOWEST LOCKED POSITION. ENDORSED TO MORNING SHIFT FOR VAN.
[2021-11-29 07:26] LABS: CALCIUM, SERUM 8.2 mg/dL (8.5-10.1); CREATININE 0.5 mg/dL (0.6-1.3); MAGNESIUM 2.1 mg/dL (1.8-2.4); PHOSPHORUS 2.7 mg/dL (2.5-4.9); POTASSIUM 3.9 mmol/L (3.5-5.1)
--- NOTE | 2021-11-29 07:28 | NUR ---
RN OPENING NOTES PATIENT IN BED, AWAKE, NON-VERBAL. ON O2 INHALATION AT 5LPM VIA N/C, NO SOB NOTED, BREATHING EVEN AND UNLABORED. WITH G-TUBE INTACT AND PATENT, POSITIVE PLACEMENT. NO RESIDUAL. WITH G TUBE FEEDING OF GLUCERNA 1.2 @40ML/HR RUNNING, TOLERATING WELL. WITH IV LINE ON RIGHT WRIST #18G, INTACT AND PATENT WITH 1/2 NS @100 ML/HR RUNNING. ASPIRATION PRECAUTIONS IN PLACE. SAFETY MEASURE IN PLACE. BED IN LOWEST AND LOCKED POSITION, SIDE RAILS UP, CALL LIGHT PLACED WITHIN EASY REACH. WILL CONTINUE TO MONITOR PATIENT.
[2021-11-29 07:38] LABS: BASOPHILS % (AUTO) 0.5 % (0.0-2.0); EOSINOPHILS % (AUTO) 11.3 % (0.0-6.0); HEMATOCRIT 28 % (33-45); HEMOGLOBIN 9.3 g/dL (11.5-14.8); LYMPHOCYTES # (AUTO) 0.9 K/uL (0.8-4.8); MEAN CORPUSCULAR HGB CONC 33 g/dl (31.0-36.0); MEAN CORPUSCULAR VOLUME 96 fL (82-100); MONOCYTES # (AUTO) 0.6 K/uL (0.1-1.30); MONOCYTES % (AUTO) 6.7 % (2.0-12.0); NEUTROPHILS # (AUTO) 5.8 K/uL (1.8-8.9); NEUTROPHILS % (AUTO) 70.5 % (43.0-81.0); PLATELET COUNT (AUTO) 246 K/uL (150-450); RED BLOOD CELL COUNT(AUTO) 2.94 MIL/uL (4.0-5.2); WHITE BLOOD COUNT (AUTO) 8.3 K/uL (4.3-11.0)
[2021-11-29 08:00] VITALS: BP 115/68
[2021-11-29] MEDS: CEFEPIME 2 GM in IV D5W 100 ML IV SCH ×2 (08:52→21:18)
[2021-11-29] MEDS: ENOXAPARIN SODIUM 40 MG/0.4 ML DISP.SYRIN SQ SCH (08:53)
[2021-11-29] MEDS: VANCOMYCIN 0.75 GM in IV D5W 250 ML IV SCH ×2 (10:43→22:31)
[2021-11-29 16:00] VITALS: BP 115/65
--- NOTE | 2021-11-29 19:31 | NUR ---
MS RN OPENING NOTE RECEIVED PATIENT RESTING IN BED, NON-VERBAL, OPENS EYES. ON O2 @ 5LPM VIA NC, TOLERATING WELL. NO SOB OR S/S OF RESPIRATORY DISTRESS NOTED. BREATHING EVEN AND UNLABORED. WITH G-TUBE INTACT AND PATENT, POSITIVE PLACEMENT WITH G TUBE FEEDING OF GLUCERNA 1.2 @40ML/HR RUNNING, TOLERATING WELL. IV ACCESS RIGHT WRIST #18G, INTACT AND PATENT RUNNING 1/2 NS @100 ML/HR. SAFETY PRECAUTIONS IN PLACE. BED IN LOWEST LOCKED POSITION, HOB ELEVATED, SIDE RAILS UP X2, AND CALL LIGHT AND TABLE WITHIN REACH. ALL NEEDS MET AT THIS TIME.
[2021-11-29 20:00] VITALS: BP 119/74
[2021-11-30 06:27] LABS: BASOPHILS % (AUTO) 0.2 % (0.0-2.0); EOSINOPHILS % (AUTO) 13.6 % (0.0-6.0); HEMATOCRIT 28 % (33-45); HEMOGLOBIN 9.3 g/dL (11.5-14.8); LYMPHOCYTES # (AUTO) 0.6 K/uL (0.8-4.8); LYMPHOCYTES % (AUTO) 7.2 % (20.0-44.0); MEAN CORPUSCULAR HGB CONC 33 g/dl (31.0-36.0); MEAN CORPUSCULAR VOLUME 96 fL (82-100); MONOCYTES # (AUTO) 0.6 K/uL (0.1-1.30); NEUTROPHILS # (AUTO) 5.5 K/uL (1.8-8.9); PLATELET COUNT (AUTO) 216 K/uL (150-450); WHITE BLOOD COUNT (AUTO) 7.8 K/uL (4.3-11.0)
--- NOTE | 2021-11-30 06:49 | NUR ---
MS RN CLOSING NOTE PATIENT RESTING IN BED, NON-VERBAL, OPENS EYES. ON O2 @ 5LPM VIA NC, TOLERATING WELL. NO SOB OR S/S OF RESPIRATORY DISTRESS NOTED. BREATHING EVEN AND UNLABORED. WITH G-TUBE INTACT AND PATENT, POSITIVE PLACEMENT WITH G TUBE FEEDING OF GLUCERNA 1.2 @40ML/HR RUNNING, TOLERATING WELL. IV ACCESS RIGHT WRIST #18G, INTACT AND PATENT RUNNING 1/2 NS @100 ML/HR. ALL DUE MEDS GIVEN ORDERED. SAFETY PRECAUTIONS IN PLACE. BED IN LOWEST LOCKED POSITION, HOB ELEVATED, SIDE RAILS UP X3, AND CALL LIGHT AND TABLE WITHIN REACH. ALL NEEDS MET AT THIS TIME AND WILL ENDORSE TO ONCOMING NURSE FOR VAN.
[2021-11-30 06:56] LABS: CALCIUM, SERUM 8.2 mg/dL (8.5-10.1); CREATININE 0.4 mg/dL (0.6-1.3); MAGNESIUM 2.2 mg/dL (1.8-2.4); PHOSPHORUS 2.7 mg/dL (2.5-4.9); POTASSIUM 3.2 mmol/L (3.5-5.1)
--- NOTE | 2021-11-30 07:52 | NUR ---
MS DUY OPENING NOTE Patient in bed, awake. A/O x 0, non-verbal. On O2 at 5 LPM via NC, breathing evenly and unlabored. No SOB or s/s of distress noted. IV access on Right wrist infusing 1/2 NS at 100 ml/hr. G-tube in place running Glucerna 1.2 at 40 ml/hr. Safety precautions in place: bed in low, locked position; siderails up x 2; call light within reach. Will continue to monitor. Addendum: 11/30/21 at 0800 by AMARIS SOTO RN ADD: Bilateral soft restraints noted.
[2021-11-30] MEDS: CEFEPIME 2 GM in IV D5W 100 ML IV SCH ×2 (08:36→20:01)
[2021-11-30] MEDS: ENOXAPARIN SODIUM 40 MG/0.4 ML DISP.SYRIN SQ SCH (08:38)
[2021-11-30 09:47] VITALS: BP 114/62
[2021-11-30] MEDS: GLUCERNA 1.2 1,000 ML BOTTLE NG SCH (09:47)
[2021-11-30] MEDS: IV 1/2NS 1000 ML 1,000 ML IV PRN ×2 (09:48→20:02)
[2021-11-30] MEDS ORDERED: POTASSIUM CHLORIDE 20 MEQ POWDER PACKET GT SCH (10:00)
[2021-11-30] MEDS: VANCOMYCIN 0.75 GM in IV D5W 250 ML IV SCH ×2 (10:53→22:41)
[2021-11-30 14:16] LABS: EOSINOPHILS % (MANUAL) 13 % (0-4); LYMPHOCYTES % (MANUAL) 9 % (16-48); MONOCYTES % (MANUAL) 3 % (0-11.0); NEUTROPHILS % (MANUAL) 75 (42-76)
[2021-11-30 15:52] VITALS: BP 147/84
--- NOTE | 2021-11-30 18:50 | NUR ---
MS RN CLOSING NOTE Patient in bed, awake. A/O x 0, mumbles words. On O2 at 5 LPM via NC, breathing evenly and unlabored. No SOB or s/s of distress noted. IV access on Right wrist infusing 1/2 NS at 100 ml/hr. G-tube in place running Glucerna 1.2 at 40 ml/hr.Bilateral soft restraints (mittens) noted. Patient kept clean and dry. Due meds given. Safety precautions maintained: bed in low, locked position; siderails up x 2; call light within reach. Will endorse to mold shifter nurse for VAN.
--- NOTE | 2021-11-30 19:42 | NUR ---
MS RN OPENING NOTES PATIENT RECEIVED RESTING IN BED, A/OX0, MUMBLING WORDS; BREATHING EVEN AND UNLABORED; TOLERATING 2LPM VIA NC WELL, NO SOB NOTED; NO DISTRESS NOTED; BILATERAL RESTRAINTS NOTED, SKIN ASSESSED, NO EVIDENCE OF REDNESS OR SKIN BREAKDOWN NOTED; WILL CONTINUE TO ASSESS THROUGHOUT SHIFT; R WRIST 18G NOTED, INFUSING 1/2 NS @ 100ML/HR, TOLERATING IVF WELL; G TUBE NOTED, RUNNING AT 40ML/HR, TOLERATING WELL WITH MINIMAL RESIDUALS NOTED; SAFETY PRECAUTIONS IMPLEMENTED; BED LOCKED IN LOW POSITION; SIDE RAILSX3, CALL LIGHT WITHIN REACH; WILL CONT PLAN OF CARE
[2021-11-30 20:00] VITALS: BP 114/65
--- NOTE | 2021-12-01 06:48 | NUR ---
MS RN CLOSING NOTES PATIENT RESTING IN BED, A/OX05 BREATHING EVEN AND UNLABORED; TOLERATING 5LPM VIA NC WELL, NO SOB NOTED; NO DISTRESS NOTED; BILATERAL MITTEN RESTRAINTS NOTED, SKIN ASSESSED, NO EVIDENCE OF REDNESS OR SKIN BREAKDOWN NOTED; R WRIST 18G NOTED, INFUSING 1/2 NS @ 100ML/HR, TOLERATING IVF WELL; G TUBE NOTED, RUNNING AT 40ML/HR, TOLERATING WELL WITH MINIMAL RESIDUALS NOTED; ALL NEEDS RENDERED; SAFETY PRECAUTIONS IMPLEMENTED; BED LOCKED IN LOW POSITION; SIDE RAILSX3, CALL LIGHT WITHIN REACH; WILL ENDORSE VAN TO ONCOMING SHIFT
[2021-12-01 07:18] LABS: CALCIUM, SERUM 8.4 mg/dL (8.5-10.1); CREATININE 0.4 mg/dL (0.6-1.3); POTASSIUM 3.8 mmol/L (3.5-5.1)
--- NOTE | 2021-12-01 07:30 | NUR ---
MS RN OPENING NOTES PATIENT RECEIVED IN BED, NO VERBAL BREATHING EVEN AND UNLABORED; TOLERATING 5LPM VIA NC WELL, NO SOB NOTED; NO DISTRESS NOTED; BILATERAL MITTEN RESTRAINTS ; R WRIST 18G NOTED, INFUSING 1/2 NS @ 100ML/HR, TOLERATING IVF WELL; HIGH ON BED WITH G TUBE NOTED, RUNNING AT 40ML/HR,; ; SAFETY PRECAUTIONS IMPLEMENTED; BED LOCKED IN LOW POSITION; SIDE RAILSX3, WILL CONTINUE TO MONITOR Addendum: 12/01/21 at 0941 by MURRAY MAGAÑA RN ADD: GTUBE FEEDING GLUCERNA 1.2 @ 40 CC/ HOUR
[2021-12-01 08:00] VITALS: BP 103/64
--- NOTE | 2021-12-01 09:00 | NUR ---
RN NOTES OXYGEN WAS TITRATED TO 2LPM PER DR PERSON AND WILL RECHECK SPO2 IN AN HOUR
[2021-12-01] MEDS ORDERED: AMOX-430 PO (09:15)
[2021-12-01] MEDS ORDERED: DOXY-326 PO (09:15)
[2021-12-01] MEDS: CEFEPIME 2 GM in IV D5W 100 ML IV SCH (09:48)
[2021-12-01] MEDS: ENOXAPARIN SODIUM 40 MG/0.4 ML DISP.SYRIN SQ SCH (09:52)
--- NOTE | 2021-12-01 10:00 | NUR ---
RN NOTES RECHECK SPO2 95- 100% @ 2LPM , DR PERSON NOTIFIED
[2021-12-01] MEDS: VANCOMYCIN 0.75 GM in IV D5W 250 ML IV SCH (11:00)
--- NOTE | 2021-12-01 11:00 | NUR ---
RN NOTES VANCOMYCIN IV WAS HELD DUE TO HIGH VANCO LEVEL -24
--- NOTE | 2021-12-01 17:09 | NUR ---
MS GORDILLOSWABBER NOTES PATIENT ON BED AWAKE , NON VERBAL , A/OX0 , GTUBE FEEDING OF GLUCERNA 1.2 @ 40 CC/HR AND HOB AT ALL TIMES , DUE MEDS GIVEN ATB AND LOVENOX ORDERED , HOB AT ALL ALL TIMES , NO SOB OR DISTRESS NOTED , KEEP DRY AND CLEAN , V/S STABLE .SEEN BY DR PERSON AND WITH ORDER FOR DISCHARGE BACK TO SNF AT [facility] , O2 TITRATED FR 5 TO 2 LPM AND PATIENT ABLE TO TOLERATE WITH 100% O2 SAT . DISCHARGE PAPERS AND INSTRUCTIONS WERE PREPARED , BODY CHECK DONE , DISCHARGE REPORT WAS GIVEN TO DUY LEWIS FROM SNF , TRANSPORTATION CAME AT AROUND 1615 AND GAVE REPORT TO EMT CREW , PATIENT LEFT AT AROUND 1630 IN A STABLE CONDITION ,
[2021-12-01] MEDS ORDERED: CEFEPIME 2 GM in IV D5W 100 ML IV SCH (21:00)
== END 2021-12-01 16:45 | DRG 871 ==
LOC: ER 10:40 → TELE 15:14 → MED 11-28 12:54
PROVIDERS: ADMIT Student in an Organized Health Care Education/Training Program; ATTEND Internal Medicine
DX: A41.9 Sepsis, unspecified organism (principal); E43 Unspecified severe protein-calorie malnutrition; R53.2 Functional quadriplegia; J96.01 Acute respiratory failure with hypoxia; J18.9 Pneumonia, unspecified organism; E87.1 Hypo-osmolality and hyponatremia; G93.40 Encephalopathy, unspecified; D68.59 Other primary thrombophilia; E87.0 Hyperosmolality and hypernatremia; R64 Cachexia; E83.39 Other disorders of phosphorus metabolism; E86.0 Dehydration; D63.8 Anemia in other chronic diseases classified elsewhere; E11.9 Type 2 diabetes mellitus without complications; E78.5 Hyperlipidemia, unspecified; F02.80 Dementia in other diseases classified elsewhere, unspecified severity, without behavioral disturbance, psychotic disturbance, mood disturbance, and anxiety; G30.9 Alzheimer's disease, unspecified; F25.9 Schizoaffective disorder, unspecified; E88.09 Other disorders of plasma-protein metabolism, not elsewhere classified; E87.6 Hypokalemia; F32.A Depression, unspecified; F41.9 Anxiety disorder, unspecified; I10 Essential (primary) hypertension; Z20.822 Contact with and (suspected) exposure to COVID-19; R13.10 Dysphagia, unspecified; Y95 Nosocomial condition; Z66 Do not resuscitate; Z79.899 Other long term (current) drug therapy; Z85.3 Personal history of malignant neoplasm of breast; Z90.12 Acquired absence of left breast and nipple; Z93.1 Gastrostomy status; Z74.01 Bed confinement status
CPT/HCPCS: 36415; 71045-TC; 80048-TC; 80076-TC; 80202-TC; 81001; 83540-TC; 83605-TC; 83735-TC; 83880; 84100-TC; 84484-TC; 85025-TC; 85730-TC; 87040-TC; 87081-TC; 87086-TC; 94799-TC; C9803; G0378; J0692; J1650; J3370; J3490; J7030; J7040; J7050; J7060; J7120